=== PATIENT | male | born 1945 | race Caucasian/White ===

== ENCOUNTER 2024-04-12 04:24 | Outpatient (CLI) | payer MEDICARE, BC, SELFPAY ==
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
--- OUTSIDE RECORDS SUMMARY | 2024-04-16 11:43 | XMS_ITS | Clinical Summary ---
[facility] Organization [facility] Address [address] [place] [address] Care Team Providers Care Decontamination Technician Name Role Phone Unassigned, Provider Primary Care Provider Unava ilable Source Comments You are receiving this document as you are listed as the primary care provider,follow-up provider, or the patient has been referred to you for consultation.This is in compliance with the Medicare and[facility] Cent[facility] EHR Incentive Program,which states Providers who transition their patient to another setting of careor provider of care or refers their patient to another provider of care shouldprovide summary care record for each transition of care or referral. Sliced Apples Allergies Active Allergy Reactions Criticality Noted Date [...] age to complete this topic Care Teams Decontamination Technician Relationship Specialty Start Date End Date Unassigned, Provider [address] [place] [address] PCP - General 02/01/01
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
--- OUTSIDE RECORDS SUMMARY | 2024-04-16 11:43 | XMS_ITS | Clinical Summary ---
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 Saw Noel 450 mg Whole Herb, take 1 tablet [...] Encounters Date Type Department Care Team Description 04/15/2024 Nurse Triage [facility] [address] [place] [address] Cornelio Dial MD Musculoskeletal Problem 04/12/2024 10:00 AM CDT Ancillary Procedure [facility] [place] [facility] [address] [place] [address] Arrived 04/12/2024 Office Visit [facility] [address] [facility] [address] [place] [address] Jak Feliz MD Telehealth ([facility]) 04/11/2024 9:00 AM CDT [facility] [address] [facility] [address] Cisco Reddy MD Consult (Left Knee) 04/11/2024 8:45 AM CDT Ancillary Procedure [facility] [address] [place] [address] Arrived 04/11/2024 Travel 04/07/2024 Telephone [facility] [place] [address] [place] [phone] Cisco Reddy MD Appointment (Need x-rays) 02/25/2024 Telephone [facility] [address] [facility] [address] Cornelio Dial MD Referral (colonoscopy ) from Last 3 Months Immunizations Name Administration Dates Next Due AMB Influenza, IIV3 (Age >=3 years)(Flu Clinic Only) 08/31/2009,09/17/2008 AMB Influenza, IIV4 PF (=>6 mos Flulaval,Fluzone Fluarix)(Flu Clinic Only) 09/01/2017 Influenza, IIV3 (Age >=3 years) 08/31/20 09,09/17/2008,09/14/2006,2004,09/22/2003 Pneumococcal Poly,23-Valent (Pneumovax) 07/22/2013,03/01/1995 Pneumococcal conj 13-Valent [...] 08/07/2023 2:09 PM CDT Plan of Treatment Upcoming Encounters Date Type Department Care Team (Late st Contact Info) Description 04/22/2024 11:45 AM CDT [facility] Visit [facility] [address] [facility] [place] [address] Cornelio Dial MD [address] [place] [address] Health Maintenance Due Date Last Done Comments [...] Procedure Name Priority Date/Time Associated Diagnosis Comments ECHO TTE COMPLETE WO CONTRAST Routine 04/12/2024 10:40 AM CDT New onset a-fib (HC) XR KNEE WB 1 VIEW AP BILATERAL AND 3 VIEWS LEFT Routine 04/11/2024 8:37 AM CDT Arthritis of left knee ANTI HCV Routine 07/07/2016 9:19 AM CDT Need for hepatitis C screening test from Last 3 Months or Most Recently Relevant to Health Maintenance Results * ECHO TTE COMPLETE WO CONTRAST (04/12/2024 10:40 AM CDT) AORTIC VALVE MEAN PG 5 mmHg PEAK TR VELOCITY 2.2 m/s LVEDD 4.0 cm EJECTION FRACTION 60 - 65% Anatomical Region Laterality Modality Ultrasound 04/12/2024 10:1 1 AM CDT Narrative 04/12/2024 11:44 AM CDT ECHOCARDIOGRAM MARTA ALBARADO ?Accession#: ?? [id number] : ?1945 79 years Study Date: ?? 04/12/2024 10:11:01 AM Gender: M ? BP: ? 109/83 mmHg Height: 178.00 cm ? BSA: ?1.94 m? ? ? Weight: 76.00 kg ?Tech: ? MCK ?Referring MD: STEVE LEPE Site: ? [facility] Reading Location: [facility] Patient Location: Inpatient. Procedure: 2D, Color Doppler and Spectral Doppler. Indication for study: New onset afib, seizure like activity Cardiac Rhythm: Irregular.Study quality: Fair. Final Impressions: 1. Normal LV size, moderately increased wall thickness, normal global systolic function with an estimated EF of 60 - 65%. 2. Right ventricular cavity size is mildly enlarged, global systolic RV function is normal. 3. The mitral valve is sclerotic, mild mitral regurgitation. 4. Mildly enlarged left atrium. 5. The aortic sinus is normal for age/sex/bsa with a maximal diameter of 4.1 cm. 6. The ascending aorta is normal for age/sex/bsa with a maximal diameter of 4.2 cm. Chamber Sizes and Function Normal left ventricular size, moderately increased wall thickness, normal global systolic function with an estimated EF of 60 - 65%. Left atrial size is mildly enlarged. Right ventricular cavity size is mildly enlarged, global systolic RV function is normal. The right atrium is mildly enlarged. The pulmonary artery is of normal size and origin. The sinus of Valsalva is normal for age/sex/bsa. The ascending aorta is normal for age/sex/bsa. Valves, RV Pressures and Diastolic Function The aortic valve is trileaflet and sclerotic, no stenosis and no regurgitation. The mitral valve is sclerotic, mild mitral regurgitation. Mitral annular calcification is present. Indeterminate pattern of LV diastolic filling. The tricuspid valve is normal in structure. Tricuspid regurgitation is mild regurgitation. The tricuspid regurgitant velocity is 2.2 m/s, the estimated right ventricular systolic pressure is 19 mmHg plus right atrial pressure. The pulmonic valve is normal. Trace pulmonary regurgitation. Masses, Effusion, Shunts There is no pericardial effusion. The inferior vena cava is dilated, respiratory size variation less than 50%. No left to right shunting was detected by limited color flow Doppler interrogation of the interatrial septum. MEASUREMENTS AND CALCULATIONS 2-D Measurements and LV Function: LVID (d) 4.0 cm LV FS% (2D) ?? 35 % LVID (s) 2.6 cm LVOT diameter 2.4 cm IVS (d) ??1.6 cm HR ?114 bpm LVPW (d) 1.4 cm RV Max 4C (d) 4.6 cm Ao Sinus 4.1 cm Asc Ao ?? 4.2 cm LA ? 3.2 cm Aortic Valve: Vmax ? 1.5 m/s ??DESHAWN (V) ?? 2.61 cm? ? ? VTI ?0.27 m ?? DESHAWN (I) ?? 2.58 cm? ? ? LVOT V max 0.8 m/s ??Max PG ?9 mmHg LVOT VTI ?? 0.15 m ?? Mean PG ?? 5 mmHg SV ? 70 ml ?Dim Index 0.56 SV index ?? 36 ml/m? ? ? CO ?8.0 l/min ?CI ?4.1 l/min/m? ? ? Tricuspid Valve and estimated PA pressures: TR Vmax 2.2 m/s TAPSE 2.5 cm TR maxG 19 mmHg . This study was interpreted by an [facility] accredited facility. CC: HIM (med records) [facility], Med/Surg - IP [facility]. ??Final ?? Procedure Note Dillan Austin MD - 04/12/2024 ECHOCARDIOGRAM MARTA ALBARADO : 1945 79 years Study Date: 04/12/2024 10:11:01 AM Gender: M BP: 109/83 mmHg Height: 178.00 cm BSA: 1.94 m? ? ? Weight: 76.00 kg Tech: [facility] Referring MD: STEVE LEPE Site: [facility] Reading Location: [facility] Patient Location: Inpatient. Procedure: 2D, Color Doppler and Spectral Doppler. Indication for study: New onset afib, seizure like activity Cardiac Rhythm: Irregular.Study quality: Fair. Final Impressions: 1. Normal LV size, moderately increased wall thickness, normal globalsystolic function with an estimated EF of 60 - 65%. 2. Right ventricular cavity size is mildly enlarged, global systolic RVfunction is normal. 3. The mitral valve is sclerotic, mild mitral regurgitation. 4. Mildly enlarged left atrium. 5. The aortic sinus is normal for age/sex/bsa with a maximal diameter of4.1 cm. 6. The ascending aorta is normal for age/sex/bsa with a maximal diameterof 4.2 cm. Chamber Sizes and Function Normal left ventricular size, moderately increased wall thickness, normalglobal systolic function with an estimated EF of 60 - 65%. Left atrialsize is mildly enlarged. Right ventricular cavity size is mildly enlarged,global systolic RV function is normal. The right atrium is mildlyenlarged. The pulmonary artery is of normal size and origin. The sinus ofValsalva is normal for age/sex/bsa. The ascending aorta is normal forage/sex/bsa. Valves, RV Pressures and Diastolic Function The aortic valve is trileaflet and sclerotic, no stenosis and noregurgitation. The mitral valve is sclerotic, mild mitral regurgitation.Mitral annular calcification is present. Indeterminate pattern of LVdiastolic filling. The tricuspid valve is normal in structure. Tricuspidregurgitation is mild regurgitation. The tricuspid regurgitant velocity is2.2 m/s, the estimated right ventricular systolic pressure is 19 mmHg plusright atrial pressure. The pulmonic valve is normal. Trace pulmonaryregurgitation. Masses, Effusion, Shunts There is no pericardial effusion. The inferior vena cava is dilated,respiratory size variation less than 50%. No left to right shunting wasdetected by limited color flow Doppler interrogation of the interatrialseptum. MEASUREMENTS AND CALCULATIONS 2-D Measurements and LV Function: LVID (d) 4.0 cm LV FS% (2D) 35 % LVID (s) 2.6 cm LVOT diameter 2.4 cm IVS (d) 1.6 cm HR 114 bpm LVPW (d) 1.4 cm RV Max 4C (d) 4.6 cm Ao Sinus 4.1 cm Asc Ao 4.2 cm LA 3.2 cm Aortic Valve: Vmax 1.5 m/s DESHAWN (V) 2.61 cm? ? ? VTI 0.27 m DESHAWN (I) 2.58 cm? ? ? LVOT V max 0.8 m/s Max PG 9 mmHg LVOT VTI 0.15 m Mean PG 5 mmHg SV 70 ml Dim Index 0.56 SV index 36 ml/m? ? ? CO 8.0 l/min CI 4.1 l/min/m? ? ? Tricuspid Valve and estimated PA pressures: TR Vmax 2.2 m/s TAPSE 2.5 cm TR maxG 19 mmHg . This study was interpreted by an [facility] accredited facility. CC: JACIEL (med records) [facility], Med/Surg - IP [facility]. Final Steve Lepe PA ECHO ORD * XR KNEE WB 1 VIEW AP [...] For Patients: ??As a result of the Cures Act, medical imaging exams and procedure reports are released immediately into your electronic medical record. ??You may view this report before your referring provider. ??If you have questions, please contact your health care provider. Indication: Arthritis left knee Technique: WB AP BILATERAL, LEFT VELASQUEZ, SUNRISE, LATERAL Comparison: 07/09/2019 Procedure Note Dillan Rader MD - 04/11/2024 For Patients: As a result of the Cures Act, medical imagingexams and procedure reports [...] Reddy MD GENERAL IMAGING * ANTI HCV [81144.2] (07/07/2016 9:19 AM CDT) HEPATITIS C ANTIBODY Non-Reacti ve Non-Reacti ve 07/07/2016 2:21 PM CDT [facility] Blood BLOOD SPECIMEN / Unknown Venipuncture / Unknown 07/07/2016 9:19 AM CDT 07/07/2016 9:19 AM CDT Narrative [facility] - 07/07/2016 2:21 PM CDT Antibodies to HCV not detected; does not exclude the possibility of exposure to HCV. Cornelio Dial MD SEND OUTS [facility] [address] [place] [address], from Last 3 Months or Most Recently Relevant to Health Maintenance Advance Directives Documents on File Type Date Recorded Patient [employer] Principal Expl anation Healthcare Directive 09/13/2020 020 Care Teams Crankshaft Straightener Relationship Specialty Start Date End Date Cornelio Dial MD [address] [place] [address] PCP - General Family Practice 06/14/16
== END 2024-04-12 04:25 | disposition home or self-care (01) ==
LOC: AMB 04-16 11:41
PROVIDERS: PCP Surgery; Visit Provider Internal Medicine
DX: R56.9 Unspecified convulsions (principal)
CPT/HCPCS: A0425; A0427

== ENCOUNTER 2024-04-12 04:54 | Inpatient (IN) | payer MEDICARE, BC, SELFPAY ==
[2024-04-12] VITALS (113 sets, daily range): BP systolic 79–123; BP diastolic 50–99; PULSE 73–134; RESP 16–20; TEMP 36.4–37.2; O2SAT 87–99; BMI 24.4; BMI 24.2
--- NOTE | 2024-04-12 | XR_ITS ---
Patient: MARTA CINTRON Facility:?[facility] RIS Patient ID:?[id number] Site Patient ID:?[id number] Site :?1945 Study:?XRay-Orbits FOREIGN BODY CHECK-04/12/2024 10:58:53 AM Ordering Physician:CONNIE Final Report: INDICATION: Pre MRI check for metal. Technique: Single radiograph orbits FINDINGS: No radiopaque foreign bodies. Dictated by Andrea Bravo MD @ 04/12/2024 11:26:26 AM Signed by:?Andrea Bravo MD @04/12/2024 11:26:26 AM (Electronic Signature)
--- NOTE | 2024-04-12 05:06 | ED_ITS ---
HPI - General Adult General Time Seen by Provider: 05:01 Date Seen: 04/12/24 Chief complaint: Arrhythmia/Palpitations Stated complaint: Seizure Time Seen by Provider: 04/12/24 05:00 Source: patient, EMS, RN notes reviewed and old records reviewed Mode of arrival: EMS Limitations: altered mental status History of Present Illness HPI narrative: 79-year-old male who presents today by EMS for altered mental status. Per EMS report, spouse woke up to the patient next to her ?shaking?. On initial EMS arrival patient with decreased responsiveness and see confused, in route to the emergency department patient became more alert but still confused. Patient has no complaint here, denies chest pain, palpitations, shortness of breath, headache, but does note some nausea. Related Data Home Medications Medication Instructions Recorded Confirmed omeprazole magnesium 20 mg 20 mg PO DAILY 04/12/24 04/12/24 tablet,delayed release (Prilosec OTC) tamsulosin 0.4 mg capsule 0.4 mg PO DAILY 04/12/24 04/12/24 Allergies Allergy/AdvReac Type Severity Reaction Status Date / Time erythromycin base Allergy laryngospas Verified 04/12/24 06:13 m [facility] Medical History (Updated 04/12/24 @ 05:19 by David Landis MD) Thrombocytopenia ?D69.6 - Thrombocytopenia, unspecified (ICD-10) Splenic artery aneurysm ?I72.8 - Aneurysm of other specified arteries (ICD-10) Primary osteoarthritis of both knees ?M17.0 - Bilateral primary osteoarthritis of knee (ICD-10) Adenomatous colon polyp ?D12.6 - Benign neoplasm of colon, unspecified (ICD-10) Bronchiectasis ?J47.9 - Bronchiectasis, uncomplicated (ICD-10) Unspecified asthma ?J45.909 - Unspecified asthma, uncomplicated (ICD-10) Esophageal reflux ?K21.9 - Gastro-esophageal reflux disease without esophagitis (ICD-10) Elevated prostate specific antigen (PSA) ?R97.20 - Elevated prostate specific antigen [PSA] (ICD-10) Surgical History (Updated 04/12/24 @ 05:14 by Ulices Castaneda RN) History of repair of right rotator cuff ?Z98.890 - Other specified postprocedural states (ICD-10) History of tonsillectomy and adenoidectomy ?Z90.89 - Acquired absence of other organs (ICD-10) History of hernia repair ?Z98.890 - Other specified postprocedural states (ICD-10) ?Z87.19 - Personal history of other diseases of the digestive system (ICD-10) History of colonoscopy ?Z98.890 - Other specified postprocedural states (ICD-10) Social History Smoking Status: Never smoker Second hand tobacco smoke exposure: No How often do you have a drink containing alcohol: never How often do you have six or more drinks on one occasion: Never AUDIT-C Alcohol total score: 0 Non-prescribed substance use: denies use Exam Narrative: Exam Narrative: General: Well-developed and well-nourished, no acute distress Head: Atraumatic and normocephalic Eyes: Pupils are equal reactive, extraocular motions intact, conjunctiva clear ENT: External nose and ears are normal, posterior pharynx without erythema or exudate Neck: No midline cervical tenderness, full spontaneous range of motion the neck, trachea midline, no adenopathy Heart: Regular rate and rhythm no murmurs or thrills Lungs: Clear to auscultation bilaterally without wheezes or crackles Abdomen: Soft, nontender, nondistended with active bowel sounds Musculoskeletal: No tenderness, deformity, or edema Neurologic: Awake, alert, and oriented x3, no gross focal neurologic deficits, cranial nerves intact as tested. Repetitive questioning. Psych: Mood and affect are appropriate Skin: No rashes Const: Vital Signs, click to edit/add: Vital Signs - 24 hr 04/12/24 05:01 04/12/24 05:03 04/12/24 05:16 Temperature 98.2 F Pulse Rate 110 H 113 H Pulse Rate [Pulse Oximeter] 134 H Respiratory Rate 16 20 Blood Pressure 102/67 112/99 H Blood Pressure [Ri ght Upper Arm] 91/78 Pulse Oximetry 94 93 93 Oxygen Delivery Me thod Room Air OxyMask Oxygen Flow Rate 2 04/12/24 05:30 04/12/24 05:30 04/12/24 05:32 Temperature Pulse Rate 119 H 112 H Pulse Rate [Pulse Oximeter] Respiratory Rate Blood Pressure 116/81 Blood Pressure [Ri ght Upper Arm] Pulse Oximetry 89 90 89 Oxygen Delivery Me thod OxyMask OxyMask Oxygen Flow Rate 2 2 04/12/24 05:46 04/12/24 05:46 Temperature Pulse Rate 105 H Pulse Rate [Pulse Oximeter] Respiratory Rate 20 Blood Pressure 102/68 Blood Pressure [Ri ght Upper Arm] Pulse Oximetry 95 94 Oxygen Delivery Me thod OxyMask Oxygen Flow Rate 2 Course Course ED Course: Patient seen examined, prior records reviewed. Patient presents today with con cern mentation and abnormal shaking movements from home. On initial exam here, patient is pleasant, still little bit confused. He is found to be in atrial fibrillation with rapid ventricular response, otherwise no acute findings. Broad differential including seizure, stroke, infection, electrolyte disturbance, alcohol withdrawal. On exam here, patient has no focal neurologic deficits. Labs are ordered along with CT scan of the head. D-dimer ordered, consider CT PE study for new atrial fibrillation although patient has no pleuritic chest pain or shortness of breath. Patient does not take any medications. Will be given Cardizem for his AFib with RVR, plan for admission. Reevaluation(s) Time of Reevaluation #1: 05:19 Reevaluation #1: Spouse no at bedside, says she woke up to patient shaking and describes shaking movements of both arms. Says this lasted about for 5 minutes, and after that patient was unresponsive although awake. No episodes of cyanosis and no vomiting. Confirms that patient has no past medical history. Time of Reevaluation #2: 05:36 Reevaluation #2: CT scan of the head independently interpreted by me negative for acute findings. CBC is normal, initial troponin is negative, lactate elevated at 5.4 which could represent sepsis but in this patient more likely represents demand from seizure. On arrival back from CT patient oxygen levels 84% on room air, placed on oxygen. CTA of the chest ordered for possible pulmonary embolism Time of Reevaluation #3: 05:49 Reevaluation #3: Heart rate improved after Cardizem. Basic panel reassuring other than elevated glucose at 207, patient has no prior history of diabetes. Ammonia level negative, hepatic panel normal, BNP normal. Additional Reevaluation(s): 6:17 a.m. labs independently interpreted by me D-dimer 1.5, CT PE study is already been done. Hemoglobin A1c is 6.1, although patient is hyperglycemic it appears this may not represent diabetes. Plan for admission pending CT results. 6:39 a.m. updated patient, mentating more appropriately and almost back to baseline per . Care discussed with Dr. Feliz, neurology who recommends MRI and EEG, recommends against anti seizure medications at this point. 7;17 a.m. patient accepted for admission by Gavi Dela Cruz, hospitalist, we agreed on starting Cardizem infusion. Rechecked with Dr. Feliz, patient does not need inpatient EEG and can stay in [place]. Does recommend MRI and this is been ordered. Vital Signs Vital signs: Initial Vital Signs Temperature 98.2 F 04/12/24 05:01 Temperature Source Temporal Artery Scan 04/12/24 05:01 Pulse Rate 134 H 04/12/24 05:01 Pulse Rhythm Irregular 04/12/24 05:01 Respiratory Rate 16 04/12/24 05:01 Respiratory Effort Normal, Spontaneous, Non-Labored 04/12/24 05:01 Respiratory Depth Normal 04/12/24 05:01 Respiratory Pattern Normal 04/12/24 05:01 Blood Pressure 91/78 04/12/24 05:01 Blood Pressure Mean 82 04/12/24 05:01 Blood Pressure Position Sitting 04/12/24 05:01 Pulse Oximetry 94 04/12/24 05:01 Oxygen Delivery Method Room Air 04/12/24 05:01 Vital Signs Temperature 98.2 F 04/12/24 05:01 Pulse Rate 134 H 04/12/24 05:01 Respiratory Rate 16 04/12/24 05:01 Blood Pressure 91/78 04/12/24 05:01 Pulse Oximetry 94 04/12/24 05:01 Oxygen Delivery Method Room Air 04/12/24 05:01 Temperature 98.2 F 04/12/24 05:01 Pulse Rate 105 H 04/12/24 05:46 Respiratory Rate 20 04/12/24 05:46 Blood Pressure 102/68 04/12/24 05:46 Pulse Oximetry 94 04/12/24 05:46 Oxygen Delivery Method OxyMask 04/12/24 05:46 Oxygen Flow Rate 2 04/12/24 05:46 Medications Administered Medications: Generic Name Dose Route Start Last Admin Trade Name Freq PRN Reason Stop Dose Admin Diltiazem HCl 10 mg 04/12/24 05:11 04/12/24 05:32 Diltiazem 5 Mg/Ml Inj IVP 04/12/24 05:12 10 mg ONCE ONE Administration Sodium Chloride 1,000 mls @ 1,000 mls/hr 04/12/24 07:00 04/12/24 06:51 0.9 % Sodium Chloride 1000 Ml IV 04/12/24 07:59 Infused .Q1H TAURUS Infusion Ondansetron HCl 4 mg 04/12/24 05:17 04/12/24 05:22 Ondansetron 2 Mg/Ml Inj IVP 04/12/24 05:18 4 mg ONCE ONE Administration Ondansetron HCl 4 mg 04/12/24 07:01 04/12/24 07:05 Ondansetron 2 Mg/Ml Inj IVP 04/12/24 07:02 4 mg ONCE ONE Administration Medical Decision Making Lab Data Labs: Lab Results 04/12/24 04/12/24 04/12/24 Range/Units 05:05 05:15 05:57 WBC 9.83 (4.50-11.00) K/uL RBC 4.39 (4.30-5.90) m/uL Hgb 13.6 (13.5-17.5) gm/dL Hct 40.9 (37.0-53.0) % MCV 93 (80-100) fL MCH 31 (26-34) pg MCHC 33 (32-36) gm/dL RDW Coeff of Joshua 12.3 (11.5-15.5) % Plt Count 146 (140-440) K/uL Neut % (Auto) 85.5 H (42.0-72.0) % Lymph % (Auto) 9.6 L (20-44) % Collin % (Auto) 4.5 (0.0-11.0) % Eos % (Auto) 0.0 (0.0-7.0) % Baso % (Auto) 0.0 (0.0-3.0) % Neut # (Auto) 8.40 H (1.7-7.0) K/uL Lymph # (Auto) 0.90 (0.90-2.90) K/uL Collin # (Auto) 0.40 (0.00-0.90) K/UL Eos # (Auto) 0.00 (0.00-0.50) K/uL Baso # (Auto) 0.00 (0.00-0.30) K/uL Abs Immat Gran (auto) 0.04 (0.00-0.30) K/uL Imm/Tot Granulo (auto) 0.4 % D-Dimer Quant (PE/DVT) 1.50 H (0.00-0.50) ug/ml VBG pH 7.365 (7.32-7.43) VBG pCO2 37 L (40-50) mmHG VBG pO2 32.4 (25-47) mmHG VBG HCO3 21 (21-28) mmol/L Sodium 137 (135-149) mmol/L Potassium 4.4 (3.6-5.1) mmol/L Chloride 105 (96-114) mmol/L Carbon Dioxide 21 (20-32) mmol/L Anion Gap 11 (7-15) mEq/L BUN 20 (7-30) mg/dL Creatinine 0.9 (0.5-1.5) mg/dL Estimated Creat Clear 63.80 Estimated GFR 87 ml/min Glucose 207 H (60-115) mg/dL Hemoglobin A1c 6.1 H (0-5.6) % Lactate 5.4 H* (0.5-1.9) mmol/L Calcium 9.1 (8.4-10.6) mg/dL Magnesium 2.1 (1.5-2.6) mg/dL Total Bilirubin 0.7 (0.1-1.5) mg/dL Direct Bilirubin 0.0 (0.0-0.5) mg/dL AST 20 (12-35) U/L ALT 21 (4-50) U/L Alkaline Phosphatase 88 (40-150) U/L Ammonia < 9.0 L (13.1-30.0) umol/L NT-Pro-B Natriuret Pep 205 pg/mL Total Protein 6.7 (6.0-8.3) g/dL Albumin 4.1 (3.3-5.0) g/dL Urine Color (Yellow) Urine Appearance (Clear) Urine pH (5.0-8.5) Ur Specific Alice (1.000-1.030) Urine Protein (Negative) Urine Glucose (UA) (Negative) Urine Ketones (Negative) Urine Blood (Negative) Urine Nitrite (Negative) Urine Bilirubin (Negative) Urine Urobilinogen (0.2-1.0) Ur Leukocyte Esterase (Negative) Urine RBC (0-2) Urine WBC (0-5) Ur Squamous Epith Cells (None-Few) Urine Bacteria (None) Urine Mucus (None) Urine Opiates Screen (Negative) Ur Oxycodone Screen (Negative) Urine Methadone Screen (Negative) Ur Barbiturates Screen (Negative) U Tricyclic Antidepress (Negative) Ur Phencyclidine Scrn (Negative) Ur Amphetamines Screen (Negative) U Methamphetamines Scrn (Negative) U Benzodiazepines Scrn (Negative) Urine Cocaine Screen (Negative) U Marijuana (THC) Screen (Negative) Ur Drug Screen Comment Ethyl Alcohol < 0.01 L (0.01-0.03) % Lab Acknowledgement Test Added POC Creatinine 1.0 (0.6-1.3) mg/dl POC Troponin I 0.00 L (0.01-0.04) ng/ml 04/12/24 Range/Units 06:47 WBC (4.50-11.00) K/uL RBC (4.30-5.90) m/uL Hgb (13.5-17.5) gm/dL Hct (37.0-53.0) % MCV (80-100) fL MCH (26-34) pg MCHC (32-36) gm/dL RDW Coeff of Joshua (11.5-15.5) % Plt Count (140-440) K/uL Neut % (Auto) (42.0-72.0) % Lymph % (Auto) (20-44) % Collin % (Auto) (0.0-11.0) % Eos % (Auto) (0.0-7.0) % Baso % (Auto) (0.0-3.0) % Neut # (Auto) (1.7-7.0) K/uL Lymph # (Auto) (0.90-2.90) K/uL Collin # (Auto) (0.00-0.90) K/UL Eos # (Auto) (0.00-0.50) K/uL Baso # (Auto) (0.00-0.30) K/uL Abs Immat Gran (auto) (0.00-0.30) K/uL Imm/Tot Granulo (auto) % D-Dimer Quant (PE/DVT) (0.00-0.50) ug/ml VBG pH (7.32-7.43) VBG pCO2 (40-50) mmHG VBG pO2 (25-47) mmHG VBG HCO3 (21-28) mmol/L Sodium (135-149) mmol/L Potassium (3.6-5.1) mmol/L Chloride (96-114) mmol/L Carbon Dioxide (20-32) mmol/L Anion Gap (7-15) mEq/L BUN (7-30) mg/dL Creatinine (0.5-1.5) mg/dL Estimated Creat Clear Estimated GFR ml/min Glucose (60-115) mg/dL Hemoglobin A1c (0-5.6) % Lactate (0.5-1.9) mmol/L Calcium (8.4-10.6) mg/dL Magnesium (1.5-2.6) mg/dL Total Bilirubin (0.1-1.5) mg/dL Direct Bilirubin (0.0-0.5) mg/dL AST (12-35) U/L ALT (4-50) U/L Alkaline Phosphatase (40-150) U/L Ammonia (13.1-30.0) umol/L NT-Pro-B Natriuret Pep pg/mL Total Protein (6.0-8.3) g/dL Albumin (3.3-5.0) g/dL Urine Color Yellow (Yellow) Urine Appearance Clear (Clear) Urine pH 6.5 (5.0-8.5) Ur Specific Alice 1.020 (1.000-1.030) Urine Protein 2+ A (Negative) Urine Glucose (UA) Negative (Negative) Urine Ketones Negative (Negative) Urine Blood Negative (Negative) Urine Nitrite Negative (Negative) Urine Bilirubin Negative (Negative) Urine Urobilinogen 0.2 (0.2-1.0) Ur Leukocyte Esterase Negative (Negative) Urine RBC 0-2 (0-2) Urine WBC 0-2 (0-5) Ur Squamous Epith Cells Few (None-Few) Urine Bacteria Few A (None) Urine Mucus Few A (None) Urine Opiates Screen Negative (Negative) Ur Oxycodone Screen Negative (Negative) Urine Methadone Screen Negative (Negative) Ur Barbiturates Screen Negative (Negative) U Tricyclic Antidepress Negative (Negative) Ur Phencyclidine Scrn Negative (Negative) Ur Amphetamines Screen Negative (Negative) U Methamphetamines Scrn Negative (Negative) U Benzodiazepines Scrn Negative (Negative) Urine Cocaine Screen Negative (Negative) U Marijuana (THC) Screen Negative (Negative) Ur Drug Screen Comment See Note Ethyl Alcohol (0.01-0.03) % Lab Acknowledgement POC Creatinine (0.6-1.3) mg/dl POC Troponin I (0.01-0.04) ng/ml Discharge Plan Discharge Clinical Impression: Seizure, Atrial fibrillation with rapid ventricular response Patient Disposition: Admitted As Inpatient
--- NOTE | 2024-04-12 05:11 | CT_ITS ---
Patient: MARTA CINTRON Facility:?[facility] R[facility] Patient ID:?[id number] Site Patient ID:?[id number] Site :?1945 Study:?CT-Head W/O-04/12/2024 5:45:38 AM Ordering Physician:CALI Final Report: INDICATION: Altered mental status. TECHNIQUE: CT head without contrast. COMPARISON: None. FINDINGS: CSF spaces: Within normal limits for age. Brain parenchyma and extra-axial spaces: The iverson-white differentiation is normal. No sign of mass, hemorrhage, or midline shift. No extra-axial fluid collection. Skull base and calvarium: The visualized paranasal sinuses and mastoid air cells demonstrate no acute or significant findings. The visualized orbits are grossly unremarkable. No skull fractures. IMPRESSION: Unremarkable noncontrast head CT. Please note that all CT scans at this facility use dose modulation, iterative reconstruction, and/or weight-based dosing when appropriate to reduce radiation dose to as low as reasonably achievable. Dictated by Jorge Yanes MD @ 04/12/2024 6:27:42 AM Signed by:?Jorge Yanes MD @04/12/2024 6:27:42 AM (Electronic Signature)
[2024-04-12] MEDS: ONDANSETRON 2 MG/ML inj 4 MG IVP ×3 (05:22→10:01)
[2024-04-12 05:23] LABS: Hematocrit 40.9 % (37.0-53.0); Hemoglobin* 13.6 gm/dL (13.5-17.5); Immature Granulocytes Abs Auto 0.04 K/uL (0.00-0.30); Immature Granulocytes Pct Auto 0.4 %; Lactate* 5.4 mmol/L (0.5-1.9); Lymphocytes Percent Auto 9.6 % (20-44); Mean Corpuscular HGB Conc 33 gm/dL (32-36); Mean Corpuscular Hemoglobin 31 pg (26-34); Mean Corpuscular Volume 93 fL (80-100); Monocytes Percent Auto 4.5 % (0.0-11.0); Neutrophils Percent Auto 85.5 % (42.0-72.0); Platelet Count* 146 K/uL (140-440); RDW Coefficient of Variation % 12.3 % (11.5-15.5); Red Blood Count 4.39 m/uL (4.30-5.90); White Blood Count* 9.83 K/uL (4.50-11.00)
[2024-04-12 05:27] LABS: Slide Review Reflex No
[2024-04-12] MEDS: dilTIAZem 5 MG/ML inj 10 MG IVP (05:32)
[2024-04-12 05:37] LABS: Albumin* 4.1 g/dL (3.3-5.0)
--- NOTE | 2024-04-12 05:37 | CT_ITS ---
Patient: MARTA CINTRON Facility:?[facility] R[facility] Patient ID:?[id number] Site Patient ID:?[id number] Site :?1945 Study:?CT-Chest ANGIO PE W/95CC [id number]/18/2024 6:12:08 AM Ordering Physician:CALI Final Report: INDICATION: New AFib. TECHNIQUE: CT chest PE was acquired with 95 mL Isovue 370 IV contrast. COMPARISON: None. FINDINGS: Heart and vasculature: Contrast opacification of the pulmonary arterial tree is adequate. No sign of pulmonary embolism. Heart size is normal. Lungs and pleural: Calcified granuloma in the right upper lobe. Atelectasis in mild bronchiectasis in the lung bases. 7 mm nodule along the left fissure image 105 series 5. Lymph nodes/mediastinum: No mediastinal, hilar, or axillary adenopathy. Large hiatal hernia containing the entire stomach. Chest wall: No masses. Upper abdomen: Pancreatic calcifications suggesting chronic pancreatitis. 1.5 cm splenic artery aneurysm. Bones: Unremarkable for age. IMPRESSION: 1. No acute findings. No pulmonary emboli. 2. Large hiatal hernia containing the entire stomach. 3. Atelectasis and bronchiectasis in the lung bases. Please note that all CT scans at this facility use dose modulation, iterative reconstruction, and/or weight-based dosing when appropriate to reduce radiation dose to as low as reasonably achievable. Dictated by Cesar Richey MD @ 04/12/2024 7:11:26 AM Signed by:?Cesar Richey MD @04/12/2024 7:11:26 AM (Electronic Signature)
[2024-04-12 05:38] LABS: Chloride* 105 mmol/L (96-114); Potassium* 4.4 mmol/L (3.6-5.1); Sodium* 137 mmol/L (135-149)
[2024-04-12 05:40] LABS: Ammonia* < 9.0 umol/L (13.1-30.0); Anion Gap 11 mEq/L (7-15); Aspartate Amino Transferase* 20 U/L (12-35); Bilirubin Total* 0.7 mg/dL (0.1-1.5); Carbon Dioxide* 21 mmol/L (20-32); Creatinine* 0.9 mg/dL (0.5-1.5); Estimated Glomerular Filt Rate 87 ml/min; Total Protein* 6.7 g/dL (6.0-8.3)
[2024-04-12 05:41] LABS: Alanine Aminotransferase* 21 U/L (4-50); Alkaline Phosphatase* 88 U/L (40-150); Blood Urea Nitrogen* 20 mg/dL (7-30); Calcium* 9.1 mg/dL (8.4-10.6); Glucose* 207 mg/dL (60-115); Magnesium* 2.1 mg/dL (1.5-2.6)
--- NOTE | 2024-04-12 05:42 | CT_ITS ---
Patient: MARTA CINTRON Facility:?[facility] R[facility] Patient ID:?[id number] Site Patient ID:?[id number] Site :?1945 Study:?CT-Abdomen/Pelvis W/95CC [id number]/18/2024 6:12:36 AM Ordering Physician:CALI Final Report: INDICATION: History of splenic artery aneurysm TECHNIQUE: CT abdomen and pelvis acquired with 95 mL Isovue 370 IV contrast. COMPARISON: None. FINDINGS: Lower chest: Hiatal hernia containing the entire stomach. Atelectasis and bronchiectasis as seen on today`s chest CT. Liver: Unremarkable. Normal in size and attenuation. No masses. Gallbladder and bile ducts: Unremarkable. No stones or inflammation. No biliary dilatation. Pancreas: Parenchymal calcifications compatible with chronic pancreatitis. Spleen: Unremarkable. Normal in size. No masses. Adrenal glands: Unremarkable. No nodules. Kidneys: Incidental cyst inferior left kidney. Otherwise unremarkable. GI tract: Unremarkable. Normal in caliber. No sign of mass or inflammation. Vasculature: Peripherally calcified splenic artery aneurysm measuring 16 mm in diameter and 27 mm in length. Lymph nodes: No lymphadenopathy. Omentum/Peritoneum/Abdominal Wall: Unremarkable. No sign of mass or infiltration. No free air or significant free fluid. Pelvis: Enlarged prostate. Bones: Unremarkable for age. IMPRESSION: 1. No acute findings. 2. 16 mm peripherally calcified splenic artery aneurysm. 3. Pancreatic calcifications compatible with chronic pancreatitis. 4. Large hiatal hernia containing the entire stomach. Please note that all CT scans at this facility use dose modulation, iterative reconstruction, and/or weight-based dosing when appropriate to reduce radiation dose to as low as reasonably achievable. Dictated by Cesar Richey MD @ 04/12/2024 7:20:11 AM Signed by:?Cesar Richey MD @04/12/2024 7:20:11 AM (Electronic Signature)
[2024-04-12 05:43] LABS: Ethanol* < 0.01 % (0.01-0.03)
--- OUTSIDE RECORDS SUMMARY | 2024-04-12 05:44 | XMS_ITS | Clinical Summary ---
[facility] [address] [place] [id number] Care Team Providers Care Construction Inspector Name Role Phone Unassigned, Provider Primary Care Provider Unava ilable Source Comments You are receiving this document as you are listed as the primary care provider,follow-up provider, or the patient has been referred to you for consultation.This is in compliance with the Medicare and[facility] EHR Incentive Program,which states Providers who transition their patient to another setting of careor provider of care or refers their patient to another provider of care shouldprovide summary care record for each transition of care or referral. [facility] Allergies Active Allergy Reactions Criticality Noted Date Comments Erythromycin Breathing Difficulty High 04/03/2018 Other 04/03/2018 Pt reports allergy to cats and roses Medications Medication Sig Dispensed Refills Start Date End Date Status omeprazole (PRILOSEC) 40 MG capsule Take 40 mg by mouth daily. Take 1 hour before a meal. Active ibuprofen (MOTRIN) 200 MG tablet Take 200-400 mg by mouth every 4 hours as needed for Pain. Active Active Problems No known active problems Social History Tobacco Use Types Packs/Day Years Used Date Smoking Tobacco: Never Smokeless Tobacco: Never Sex and Gender Information Value Date Recorded Sex Assigned at Not on file Gender Identity Not on file Sexual Orientation Not on file Plan of Treatment Health Maintenance Due Date Last Done Comments Hep C Screening (Preventive Services) 1945 Medicare Annual Wellness Visit 1945 Zoster/Shingles (2 of 3) 01/21/2013 11/26/2012 COVID-19 Vaccine ( season) 2023 Influenza (Season Ended) 2024 017, 08/31/2009, 09/17/2008, Additional history exists DTaP/Tdap/Td (3 - Tdap) 06/14/2026 06/14/2016, 04/10 Pneumococcal 65+ Yrs Completed 07/07/2016, 07/22/20 13 HepA Aged Out No longer eligi ble based on patient's age to complete this topic HepB Aged Out No longer eligi ble based on patient's age to complete this topic Hib Aged Out No longer eligi ble based on patient's age to complete this topic IPV (Polio) Aged Out No longer eligi ble based on patient's age to complete this topic MCV4 Aged Out No longer eligi ble based on patient's age to complete this topic Care Teams Construction Inspector Relationship Specialty Start Date End Date Unassigned, Provider [address] [place] [address] PCP - General 02/01/01
--- OUTSIDE RECORDS SUMMARY | 2024-04-12 05:44 | XMS_ITS | Clinical Summary ---
Author Name Unknown Organization [facility] Address [place], [place] [address] Care Team Providers Care Audio Visual Coordinator Name Role Phone Cornelio Dial MD Primary Care Provider [phone] Allergies Active Allergy Reactions Criticality Noted Date Comments Cats (Fur, Dander, Saliva) Other - Describe In Comment Field 06/12/2018 Chest tighrness Erythromycin Laryngospasm 03/04/2007 chest tightness Erin Hips Other - Describe In Comment Field 06/12/2018 Chest tightness Medications Medication Sig Dispensed Refills Start Date End Date Status PRILOSEC 20 MG CAPIndications:Esoph ageal reflux take 1 capsule (20 mg) by oral route once daily before a meal 0 03/30/2008 Active ascorbic acid, vitamin C, (VITAMIN C) 1,000 mg tablet Take 1 tablet by mouth once daily. 0 05/20/2018 Active vitamin e 1,000 unit cap Take by mouth once daily. 0 05/20/2018 Active medication order composer Take by mouth. Saw [place] 450 mg Whole Herb, take 1 tablet by mouth daily 0 05/20/2018 Active cholecalciferol (VITAMIN D-3) 2,000 unit capsule Take 1 capsule by mouth once daily. 0 06/07/2020 Active tamsulosin (FLOMAX) 0.4 mg capsuleIndications:B PH without urinary obstruction Take 1 Capsule (0.4 mg) by mouth once daily after a meal. 90 Capsule 3 08/07/2023 Active Hospital, Clinic, or Other Facility Administered Medication Ordered Dose Route Frequency Start Date End Date Status triamcinolone acetonide (KENALOG) injection 40 mgIndications:Arthritis of left knee 40 mg IArtic ONE TIME 04/11/2024 04/11/2024 Ended Active Problems Problem Noted Date Diagnosed Date Arthritis of left knee 04/11/2024 Family history of colonic polyps 02/26/2024 Overview: Colonoscopy 07/2021 normal, FHx colon polyps, repeat in 5 years Primary osteoarthritis of right knee 07/09/2019 Thrombocytopenia 06/04/2019 Overview: Mild - 130-150 - borderline since at least 2010 - has been stable Splenic artery aneurysm 07/12/2018 Overview: Followed by Vascular - repeat CTA recommended in 2023 Primary osteoarthritis of both knees 05/08/2017 Adenomatous colon polyp 08/11/2016 Overview: Colonoscopy 07/2016 polyp repeat in 5 years Colonoscopy 07/2021 normal, FHx colon polyps, repeat in 5 years Bronchiectasis 05/17/2009 Elevated prostate specific antigen (PSA) 007 Overview: Since at least 2007. Stable. Follows with Urology. Esophageal reflux 03/04/2007 Overview: Upper endoscopy mild gastritis 2005. Unspecified asthma(493.90) 03/04/2007 Resolved Problems Problem Noted Date Diagnosed Date Resolved Date Benign neoplasm of colon 03/04/2007 Incidental pulmonary nodule, > 3mm and < 8mm 07/22/2013 Overview: due for repeat 05/05 Encounters Date Type Department Care Team Description 04/11/2024 9:00 AM CDT Office [facility] [address] [facility] [address] Cisco Reddy MD Consult (Left Knee) 04/11/2024 8:45 AM CDT Ancillary Procedure [facility] [address] [facility] [address] Arrived 04/11/2024 Travel 04/07/2024 Telephone [facility] [place] [address] [place] [address] Cisco Reddy MD Appointment (Need x-rays) 02/25/2024 Telephone [facility] [address] [place] [address] Cornelio Dial MD Referral (colonoscopy ) from Last 3 Months Immunizations Name Administration Dates Next Due AMB Influenza, IIV3 (Age >=3 years)(Flu Clinic Only) 08/31/2009,09/17/2008 AMB Influenza, IIV4 PF (=>6 mos Flulaval,Fluzone Fluarix)(Flu Clinic Only) 09/01/2017 Influenza, IIV3 (Age >=3 years) 08/31/20,09/17/2008,09/14/2006,2004,09/22/2003 Pneumococcal Poly,23-Valent (Pneumovax) 07/22/2013,03/01/1995 Pneumococcal conj 13-Valent (Prevnar 13) 07/07/2016 Td (Age >=7 Years) 03/02/1997 Td, Preservative Free (age > = 7 Years) 06/14/2016 Tdap 04/10/2008 Zoster (Shingrix-RZV, recombinant) 11/22/2020, Zoster (Zostavax-ZVL, live) 11/26/2012 Family History Medical History Relation Name Comments Asthma Brother Cancer-colon Brother Cancer-colon Father Cancer-prostate Father Diabetes Father Heart Disease Father Other Father Renal failure - dialysis for 11 years Heart Disease Mother at 93 Other Sister 2 Marfans - at 40 Relation Name Status Comments Brother Father (Age 83) CAD, dialy sis for 11 years Mother (Age 92) stoke Sister 1 (Age 40) marfans Sister 2 Social History Tobacco Use Types Packs/Day Years Used Date Smoking Tobacco: Never Smokeless Tobacco: Never Tobacco Cessation:Counseling Given: Yes Alcohol Use Standard Drinks/Week Comments Yes 0 (1 standard drink = 0.6 oz pure alcohol) about 6 drinks per year, noted 05/16/2021 PHQ-2 Answer Date Recorded PHQ-2 TOTAL SCORE 0 08/07/2023 Social Connections Answer Date Recorded Frequency of Communication with Friends and Fami ly Not on file 07/09/2023 Alcohol Use Answer Date Recorded How often do you have a drink containing alcohol ? 1 04/03/2022 How many drinks containing a lcohol do you have on a typical day when you are drinking? 0 04/03/2022 How often do you have five or more drinks on one occasion? 0 04/03/2022 Financial Resource Strain Answer Date R ecorded Difficulty of Paying Living Expenses 3 07/06/2022 Difficulty of Paying Living Expenses Not on file 07/06/2022 Food Insecurity Answer Date Recorded Worried About Running Out of Food in the Last Ye ar 1 07/06/2022 Transportation Needs Answer Date Record ed Lack of Transportation (Medical) 1 07/06/2022 Housing Stability Answer Date Recorded Unable to Pay for Housing in the Last Year 1 07/06/2022 Sex and Gender Information Value Date Recorded Sex Assigned at Not on file Gender Identity Not on file Sexual Orientation Not on file Obstetrics History Last Filed Vital Signs Vital Sign Reading Time Taken Comments Blood Pressure 137/75 08/07/2023 2:12 PM CDT Pulse 58 08/07/2023 2:12 PM CDT Temperature 36.6 ??C (97.9 ??F) 08/02/2022 9:23 AM CD T Respiratory Rate 16 04/03/2022 8:28 AM CDT Oxygen Saturation 99% 08/07/2023 2:12 PM CDT Inhaled Oxygen Concentration - - Weight 75.5 kg (166 lb 6.4 oz) 08/07/2023 2:09 P M CDT Height 173.2 cm (5' 8.19) 08/07/2023 2:09 PM CD T Body Mass Index 25.16 08/07/2023 2:09 PM CDT Plan of Treatment Health Maintenance Due Date Last Done Comments COVID-19 vaccine series ( season) 2023 Influenza for age 65+ 07/27/2024 09/01/2017 , 08/31/2009, 08/31/2009, Additional history exists BMI (ht and wt on same day) for age 18+ 08/07/2024 08/07/2023, 08/02/2022, 07/06/2022, Additional history exists Depression screening for age 12+ 08/07/2024 08/07/2023, 07/06/2022, 06/15/2021, Additional history exists Medicare Wellness for age 65+ 08/07/2024, 07/06/2022, 06/13/2021, Additional history exists Tetanus booster 06/14/2026 06/14/2016, 03/26, 03/02/1997 Tdap Completed 04/10/2008 Hepatitis C screening for ag e 18-79 Completed 07/07/2016 Pneumococcal series for age 65+ Completed 07/07/2016, 07/22/2013, 03/01/1995 Zoster (shingles) series for age 50+ Completed 11/22/2020, 09/13/2020, 11/26/2012 Procedures Procedure Name Priority Date/Time Associated Diagnosis Comments XR KNEE WB 1 VIEW AP BILATERAL AND 3 VIEWS LEFT Routine 04/11/2024 8:37 AM CDT Arthritis of left knee ANTI HCV Routine 07/07/2016 9:19 AM CDT Need for hepatitis C screening test from Last 3 Months or Most Recently Relevant to Health Maintenance Results * XR KNEE WB 1 VIEW AP BILATERAL AND 3 VIEWS LEFT (04/11/2024 8:37 AM CDT) Anatomical Region Laterality Modality KNEES, KNEE L Computed Radiogr aphy 04/11/2024 1:55 PM CDT Impressions 04/11/2024 1:55 PM CDT Medial compartment narrowing left knee. No fracture. Patellofemoral spurring left knee with joint effusion. Medial compartment narrowing right knee. No osteochondral defect. Dictated by Dillan Rader MD @ 04/11/2024 1:55:55 PM (Electronically Signed) Narrative 04/11/2024 1:55 PM CDT For Patients: ??As a result of the 21st Century Cures Act, medical imaging exams and procedure reports are released immediately into your electronic medical record. ??You may view this report before your referring provider. ??If you have questions, please contact your health care provider. Indication: Arthritis left knee Technique: WB AP BILATERAL, LEFT CRISTI VELASQUEZ, LATERAL Comparison: 07/09/2019 Procedure Note Dillan Rader MD - 04/11/2024 For Patients: As a result of the Century Cures Act, medical imagingexams and procedure reports are released immediately into your electronicmedical record. You may view this report before your referring provider.If you have questions, please contact your health care provider. Indication: Arthritis left knee Technique: WB AP BILATERAL, LEFT VELASQUEZ, SUNRISE, LATERAL Comparison: 07/09/2019 IMPRESSION: Medial compartment narrowing left knee. No fracture. Patellofemoralspurring left knee with joint effusion. Medial compartment narrowing rightknee. No osteochondral defect. Dictated by Dillan Rader MD @ 04/11/2024 1:55:55 PM (Electronically Signed) Cisco Reddy MD GENERAL IMAGING * ANTI HCV [60613.2] (07/07/2016 9:19 AM CDT) HEPATITIS C ANTIBODY Non-Reacti ve Non-Reacti ve 07/07/2016 2:21 PM CDT [facility] Blood BLOOD SPECIMEN / Unknown Venipuncture / Unknown 07/07/2016 9:19 AM CDT 07/07/2016 9:19 AM CDT Narrative [facility] - 07/07/2016 2:21 PM CDT Antibodies to HCV not detected; does not exclude the possibility of exposure to HCV. Cornelio Dial MD SEND OUTS [facility] [address] [place] [address], [place] from Last 3 Months or Most Recently Relevant to Health Maintenance Advance Directives Documents on File Type Date Recorded Patient Operations Specialists Expl anation Healthcare Directive 09/13/2020 020 Care Teams Audio Visual Coordinator Relationship Specialty Start Date End Date Cornelio Dial MD [address] [place] [address] PCP - General Family Practice 06/14/16
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
[2024-04-12] MEDS: 0.9 % SODIUM CHLORIDE 1000 ml 1,000 ML IV (05:45)
[2024-04-12 05:53] LABS: NT Pro B Type NatriureticPept* 205 pg/mL
[2024-04-12 06:06] LABS: HCO3 VBG 21 mmol/L (21-28); PCO2 VBG 37 mmHG (40-50); PO2 VBG 32.4 mmHG (25-47); pH VBG 7.365 (7.32-7.43)
[2024-04-12 06:13] LABS: Hemoglobin A1C* 6.1 % (0-5.6)
[2024-04-12 07:05] LABS: Appearance Urine Clear (Clear); Bilirubin Urine Negative (Negative); Blood Urine Negative (Negative); Color Urine Yellow (Yellow); Glucose Urine Negative (Negative); Ketones Urine Negative (Negative); Leukocyte Esterase Urine Negative (Negative); Nitrite Urine Negative (Negative); Protein Urine 2+ (Negative); Urobilinogen Urine 0.2 (0.2-1.0); pH Urine 6.5 (5.0-8.5)
--- NOTE | 2024-04-12 07:13 | MR_ITS ---
Patient: MARTA CINTRON Facility:?[facility] Patient ID:?[id number] Site Patient ID:?[id number]. Site :?[id number] Study:?MRI-Head W/ and W/O Cont 17CC DOTAREM-04/12/2024 11:58:54 AM Ordering Physician:?DR. ALEJANDRA Final Report: INDICATION: AFib, headaches, dizziness and nausea. TECHNIQUE: Brain MRI with and without contrast. 17 cc gadolinium based contrast administered. COMPARISON: Head CT from 04/12/2024. FINDINGS: Susceptibility artifact limits evaluation of the posterior fossa. No evidence of acute ischemia within limits of examination. No evidence of acute or chronic intracranial blood products. No mass or pathologic intracranial enhancement. Scattered FLAIR hyperintensities within the supratentorial white matter, typical for chronic microvascular ischemic change. No hydrocephalus or extra-axial collections. The pituitary gland, parasellar structures and optic chiasm are normal. Tiny chronic infarcts within the left inferior cerebellar hemisphere. All the major intracranial vascular structures demonstrate normal flow-related signal. The orbital contents are normal. No calvarial or skull base marrow signal abnormality. No obstructive sinus disease. No extracranial soft tissue findings. IMPRESSION: 1. No acute infarction or other acute intracranial pathology, with somewhat limited assessment of the posterior fossa due to susceptibility artifact. 2. No mass or pathologic intracranial enhancement. 3. 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 Mild chronic microvascular ischemic changes. Dictated by Pedro Diamond MD @ 04/12/2024 12:30:20 PM Signed by:?Pedro Diamond MD @04/12/2024 12:30:20 PM (Electronic Signature)
[2024-04-12 07:14] LABS: Amphetamine Screen Urine Negative (Negative); Barbiturate Screen Urine Negative (Negative); Benzodiazepines Screen Urine Negative (Negative); Cannabinoid Screen Urine Negative (Negative); Cocaine Screen Urine Negative (Negative); Methadone Screen Urine Negative (Negative); Methamphetamines Screen Urine Negative (Negative); Opiate Screen Urine Negative (Negative); Oxycodone Screen Urine Negative (Negative); Phencyclidine Screen Urine Negative (Negative); Tricyclic Antidepressant Urine Negative (Negative)
[2024-04-12 07:17] LABS: Bacteria Urine Few; Mucus Urine Few; RBC Urine 0-2 (0-2); Squamous Epithelial Cell Urine Few (None-Few); WBC Urine 0-2 (0-5)
[2024-04-12 07:48] LABS: Lactate* 1.3 mmol/L (0.5-1.9)
[2024-04-12] MEDS: dilTIAZem HCL 125 MG in 0.9 % SODIUM CHLORIDE 100 ml 100 ML IVPB (07:58)
[2024-04-12] MEDS: dilTIAZem 30 MG TABLET PO ×4 (07:59→22:51)
--- NOTE | 2024-04-12 10:00 | P.IMHP_ITS ---
Hospitalist- H&P: HPI History of Present Illness Date Seen: 04/12/24 Chief complaint: Seizure Narrative: Michael Albarado is a 79 year old male past medical history significant for hiatal hernia, BPH, status post previous urinary stent which has since been removed is admitted to the critical care unit for further management new onset atrial fibrillation with RVR and questionable seizure activity. Patient is seen with , Magaly, at bedside as he has no recollection of events overnight. Patient is able to tell me that he had a totally normal day yesterday. Was actually seen in the clinic for a cortisone injection which he has had in the past. Was then called to work. He felt well with no unusual or new symptoms. Went to bed also feeling his normal self. Patient tells me he remembers getting up twice in the middle of the night, last time around 3:00 a.m., to urinate and have 2 bowel movements which he reports as normal. His says around 4:00 a.m. she awoke as the entire bed was shaking. She noticed he was having what appeared to be seizure like movements of his upper body. His legs remained still. He was unable to respond to her. Denies loss of bowel or urine. Upon EMS arriving, patient remained in the same state but when asked to blink if he was hearing them, he did blink in response. Patient has never experienced this in the past. Currently, patient denies headache or dizziness. Denies chest pain, pressure. Denies these symptoms or palpitations at all yesterday as well. Denies shortness of breath. No recent fevers or chills. Did have an episode of nausea last night with 1 of his bowel movements but did not vomit. Denies abdominal pain. No change in urination. History of occasional loose stools, reported as normal overnight. Other than a cortisone injection yesterday, no new medications, takes only a PPI for his hernia and tamsulosin, typical vitamins. [place] . 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 Nonsmoker. Does not vape. Rare alcohol use. Review of Systems Narrative: REVIEW OF SYSTEMS: Complete review of systems performed and negative unless otherwise stated in HPI or below. PFSH PFS Medical History (Updated 04/12/24 @ 10:42 by Gavi Huff PA-C) Thrombocytopenia ?D69.6 - Thrombocytopenia, unspecified (ICD-10) Splenic artery aneurysm ?I72.8 - Aneurysm of other specified arteries (ICD-10) Primary osteoarthritis of both knees ?M17.0 - Bilateral primary osteoarthritis of knee (ICD-10) Adenomatous colon polyp ?D12.6 - Benign neoplasm of colon, unspecified (ICD-10) Bronchiectasis ?J47.9 - Bronchiectasis, uncomplicated (ICD-10) Unspecified asthma ?J45.909 - Unspecified asthma, uncomplicated (ICD-10) Esophageal reflux ?K21.9 - Gastro-esophageal reflux disease without esophagitis (ICD-10) Elevated prostate specific antigen (PSA) ?R97.20 - Elevated prostate specific antigen [PSA] (ICD-10) Surgical History History of repair of right rotator cuff ?Z98.890 - Other specified postprocedural states (ICD-10) History of tonsillectomy and adenoidectomy ?Z90.89 - Acquired absence of other organs (ICD-10) History of hernia repair ?Z98.890 - Other specified postprocedural states (ICD-10) ?Z87.19 - Personal history of other diseases of the digestive system (ICD-10) History of colonoscopy ?Z98.890 - Other specified postprocedural states (ICD-10) Social History Smoking Status: Never smoker Second hand tobacco smoke exposure: No How often do you have a drink containing alcohol: never How often do you have six or more drinks on one occasion: Never AUDIT-C Alcohol total score: 0 Non-prescribed substance use: denies use Meds Home Medications and Allergies Home Medications Medication Instructions Recorded Confirmed Type antiarthritic combination no.2 900 900 mg PO DAILY 04/12/24 04/12/24 History mg tablet (glucosamine-chondroitin) ascorbic acid (vitamin C) 1,000 mg 1 g PO DAILY 04/12/24 04/12/24 History tablet (C-1000) cholecalciferol (vitamin D3) 125 125 mcg PO DAILY 04/12/24 04/12/24 History mcg (5,000 unit) capsule omeprazole magnesium 20 mg 20 mg PO DAILY 04/12/24 04/12/24 History tablet,delayed release (Prilosec OTC) saw palmetto 450 mg capsule 450 mg PO BID 04/12/24 04/12/24 History tamsulosin 0.4 mg capsule 0.4 mg PO QPM 04/12/24 04/12/24 History vitamin E 670 mg (1,000 unit) 670 mg PO DAILY 04/12/24 04/12/24 History capsule zinc gluconate 50 mg tablet 50 mg PO DAILY 04/12/24 04/12/24 History Allergies Allergy/AdvReac Type Severity Reaction Status Date / Time erythromycin base Allergy laryngospas Verified 04/12/24 06:13 m Exam Narrative: Exam Narrative: PHYSICAL EXAM General: Very pleasant, conversant, NAD HEENT: Normocephalic, atraumatic, sclera white, EOMI, oral mucosa moist Cardiovascular: IRRR. No pitting edema Pulmonary: CTA bilaterally without rhonchi, rales, expiratory wheezes. No dyspnea Abdominal: Soft, nondistended, NTTP Neurological: Alert, answering questions appropriately, cranial nerves intact, no focal findings Extremities: No gross joint deformity or swelling. AROMI. Neurovascularly intact Skin: Warm, dry. Const: Vital Signs, click to edit/add: Vital Signs - 24 hr 04/12/24 05:01 04/12/24 05:03 04/12/24 05:16 Temperature 98.2 F Pulse Rate 110 H 113 H Pulse Rate [Pulse Oximeter] 134 H Respiratory Rate 16 20 Blood Pressure 102/67 112/99 H Blood Pressure [Ri ght Arm] Blood Pressure [Ri ght Upper Arm] 91/78 Pulse Oximetry 94 93 93 Oxygen Delivery Me thod Room Air OxyMask Oxygen Flow Rate 2 04/12/24 05:30 04/12/24 05:30 04/12/24 05:32 Temperature Pulse Rate 119 H 112 H Pulse Rate [Pulse Oximeter] Respiratory Rate Blood Pressure 116/81 Blood Pressure [Ri ght Arm] Blood Pressure [Ri ght Upper Arm] Pulse Oximetry 89 90 89 Oxygen Delivery Me thod OxyMask OxyMask Oxygen Flow Rate 2 2 04/12/24 05:46 04/12/24 05:46 04/12/24 05:47 Temperature Pulse Rate 105 H 117 H Pulse Rate [Pulse Oximeter] Respiratory Rate 20 Blood Pressure 102/68 Blood Pressure [Ri ght Arm] Blood Pressure [Ri ght Upper Arm] Pulse Oximetry 95 94 96 Oxygen Delivery Me thod OxyMask Oxygen Flow Rate 2 04/12/24 06:13 04/12/24 06:14 04/12/24 06:15 Temperature Pulse Rate 110 H 122 H 110 H Pulse Rate [Pulse Oximeter] Respiratory Rate Blood Pressure 101/76 Blood Pressure [Ri ght Arm] Blood Pressure [Ri ght Upper Arm] Pulse Oximetry 91 93 92 Oxygen Delivery Me thod Oxygen Flow Rate 04/12/24 06:16 04/12/24 06:30 04/12/24 06:31 Temperature Pulse Rate 115 H 117 H 111 H Pulse Rate [Pulse Oximeter] Respiratory Rate Blood Pressure 106/80 122/50 L Blood Pressure [Ri ght Arm] Blood Pressure [Ri ght Upper Arm] Pulse Oximetry 90 99 99 Oxygen Delivery Me thod Oxygen Flow Rate 04/12/24 06:49 04/12/24 07:00 04/12/24 07:01 Temperature Pulse Rate 110 H 107 H 122 H Pulse Rate [Pulse Oximeter] Respiratory Rate Blood Pressure 121/61 Blood Pressure [Ri ght Arm] Blood Pressure [Ri ght Upper Arm] Pulse Oximetry 93 97 98 Oxygen Delivery Me thod Oxygen Flow Rate 04/12/24 07:15 04/12/24 07:16 04/12/24 07:30 Temperature Pulse Rate 107 H 113 H 117 H Pulse Rate [Pulse Oximeter] Respiratory Rate Blood Pressure 105/76 Blood Pressure [Ri ght Arm] Blood Pressure [Ri ght Upper Arm] Pulse Oximetry 98 98 98 Oxygen Delivery Me thod Oxygen Flow Rate 04/12/24 07:31 04/12/24 07:45 04/12/24 07:47 Temperature Pulse Rate 111 H 86 107 H Pulse Rate [Pulse Oximeter] Respiratory Rate Blood Pressure 109/72 104/75 Blood Pressure [Ri ght Arm] Blood Pressure [Ri ght Upper Arm] Pulse Oximetry 98 98 98 Oxygen Delivery Me thod Oxygen Flow Rate 04/12/24 08:00 04/12/24 08:01 04/12/24 08:32 Temperature 98.2 F Pulse Rate 99 91 91 Pulse Rate [Pulse Oximeter] Respiratory Rate 20 Blood Pressure 94/74 94/74 Blood Pressure [Ri ght Arm] Blood Pressure [Ri ght Upper Arm] Pulse Oximetry 97 97 97 Oxygen Delivery Me thod OxyMask Oxygen Flow Rate 2 04/12/24 08:35 04/12/24 08:39 04/12/24 08:40 Temperature 97.9 F Pulse Rate 109 H Pulse Rate [Pulse Oximeter] Respiratory Rate 18 18 18 Blood Pressure 79/69 L Blood Pressure [Ri ght Arm] 79/69 L 112/71 Blood Pressure [Ri ght Upper Arm] Pulse Oximetry 94 94 94 Oxygen Delivery Me thod Room Air OxyMask Room Air Oxygen Flow Rate 2 04/12/24 08:45 04/12/24 08:50 04/12/24 09:00 Temperature 97.9 F Pulse Rate Pulse Rate [Pulse Oximeter] 118 H 116 H Respiratory Rate 18 18 18 Blood Pressure Blood Pressure [Ri ght Arm] 114/72 119/92 H 92/78 Blood Pressure [Ri ght Upper Arm] Pulse Oximetry 94 94 95 Oxygen Delivery Me thod Room Air Room Air Room Air Oxygen Flow Rate 04/12/24 09:05 04/12/24 09:10 04/12/24 09:15 Temperature 97.9 F 99.0 F Pulse Rate Pulse Rate [Pulse Oximeter] 131 H 116 H 119 H Respiratory Rate 18 18 18 Blood Pressure Blood Pressure [Ri ght Arm] 119/92 H 109/76 123/74 Blood Pressure [Ri ght Upper Arm] Pulse Oximetry 95 96 95 Oxygen Delivery Me thod Room Air Room Air Room Air Oxygen Flow Rate 04/12/24 09:29 04/12/24 09:30 04/12/24 09:45 Temperature 97.6 F 98.9 F Pulse Rate Pulse Rate [Pulse Oximeter] 125 H 111 H 101 H Respiratory Rate 18 18 18 Blood Pressure Blood Pressure [Ri ght Arm] 94/71 108/81 109/83 Blood Pressure [Ri ght Upper Arm] Pulse Oximetry 92 94 96 Oxygen Delivery Me thod Room Air Room Air Room Air Oxygen Flow Rate Hospitalist - H&P: Result Labs Labs: Short CBC 04/12/24 Range/Units 05:05 WBC 9.83 (4.50-11.00) K/uL Hgb 13.6 (13.5-17.5) gm/dL Hct 40.9 (37.0-53.0) % Plt Count 146 (140-440) K/uL BMP 04/12/24 05:05 Sodium 137 Potassium 4.4 Chloride 105 Carbon Dioxide 21 BUN 20 Creatinine 0.9 Glucose 207 H Calcium 9.1 Liver Function 04/12/24 Range/Units 05:05 Total Bilirubin 0.7 (0.1-1.5) mg/dL Direct Bilirubin 0.0 (0.0-0.5) mg/dL AST 20 (12-35) U/L ALT 21 (4-50) U/L Alkaline Phosphatase 88 (40-150) U/L Albumin 4.1 (3.3-5.0) g/dL Urine 04/12/24 Range/Units 06:47 Urine Color Yellow (Yellow) Urine Appearance Clear (Clear) Urine pH 6.5 (5.0-8.5) Ur Specific [place] 1.020 (1.000-1.030) Urine Protein 2+ A (Negative) Urine Glucose (UA) Negative (Negative) ECG Attestation: I personally reviewed and interpreted this ECG as follows: Interpretation: Atrial fibrillation with RVR. Nonspecific ST abnormality, vent rate 136, qtc [address] scan - head: Attestation: I have reviewed the pertinent imaging results. Radiologist's impression: CT head without contrast. COMPARISON: None. FINDINGS: CSF spaces: Within normal limits for age. Brain parenchyma and extra-axial spaces: The iverson-white differentiation is normal. No sign of mass, hemorrhage, or midline shift. No extra-axial fluid collection. Skull base and calvarium: The visualized paranasal sinuses and mastoid air cells demonstrate no acute or significant findings. The visualized orbits are grossly unremarkable. No skull fractures. IMPRESSION: Unremarkable noncontrast head CT. CT scan - chest: Attestation: I have reviewed the pertinent imaging results. Radiologist's impression: CT chest PE was acquired with 95 mL Isovue 370 IV contrast. COMPARISON: None. FINDINGS: Heart and vasculature: Contrast opacification of the pulmonary arterial tree is adequate. No sign of pulmonary embolism. Heart size is normal. Lungs and pleural: Calcified granuloma in the right upper lobe. Atelectasis in mild bronchiectasis in the lung bases. 7 mm nodule along the left fissure image 105 series 5. Lymph nodes/mediastinum: No mediastinal, hilar, or axillary adenopathy. Large hiatal hernia containing the entire stomach. Chest wall: No masses. Upper abdomen: Pancreatic calcifications suggesting chronic pancreatitis. 1.5 cm splenic artery aneurysm. Bones: Unremarkable for age. IMPRESSION: 1. No acute findings. No pulmonary emboli. 2. Large hiatal hernia containing the entire stomach. 3. Atelectasis and bronchiectasis in the lung bases. CT scan - abdomen: Attestation: I have reviewed the pertinent imaging results. Radiologist's impression: CT abdomen and pelvis acquired with 95 mL Isovue 370 IV contrast. COMPARISON: None. FINDINGS: Lower chest: Hiatal hernia containing the entire stomach. Atelectasis and bronchiectasis as seen on today`s chest CT. Liver: Unremarkable. Normal in size and attenuation. No masses. Gallbladder and bile ducts: Unremarkable. No stones or inflammation. No biliary dilatation. Pancreas: Parenchymal calcifications compatible with chronic pancreatitis. Spleen: Unremarkable. Normal in size. No masses. Adrenal glands: Unremarkable. No nodules. Kidneys: Incidental cyst inferior left kidney. Otherwise unremarkable. GI tract: Unremarkable. Normal in caliber. No sign of mass or inflammation. Vasculature: Peripherally calcified splenic artery aneurysm measuring 16 mm in diameter and 27 mm in length. Lymph nodes: No lymphadenopathy. Omentum/Peritoneum/Abdominal Wall: Unremarkable. No sign of mass or infiltration. No free air or significant free fluid. Pelvis: Enlarged prostate. Bones: Unremarkable for age. IMPRESSION: 1. No acute findings. 2. 16 mm peripherally calcified splenic artery aneurysm. 3. Pancreatic calcifications compatible with chronic pancreatitis. 4. Large hiatal hernia containing the entire stomach. Assessment and Plan Assessment and plan (1) Atrial fibrillation with rapid ventricular response: Problem comment: New onset (was seen in the [facility] yesterday but I do not see a set of vitals from that visit). No family history Has been started on diltiazem drip after receiving single IV dose diltiazem 10 mg and oral 30 mg without adequate response, continue to titrate to response Plan to transition to oral when appropriate Telemetry [id number] score 2. Discussed anticoagulation, risks and benefits with patient and . For now, covered with enoxaparin Echo ordered Outpatient follow-up cardiology recommended Status: Acute (2) Seizure: Problem comment: Suspected seizure activity, single episode. No family history ED provider discussed with Dr. Feliz, Neurology, recommending local admission, MRI, outpatient EEG following discharge. Recommends against anti-seizure medications at this time CT head unremarkable. MRI ordered. CT chest/abd/pelvis without acute findings Seizure precautions, telemetry Outpatient follow-up with Neurology recommended Status: Acute (3) Elevated hemoglobin A1c: Problem comment: 6.1, follow-up with PCP for dietary recommendations and monitoring Status: Acute Total Time Spent Total Time Spent: Total time spent caring for the patient today was 75 minutes, > 30 minutes of which was critical care time. This includes time spent for the visit reviewing the chart, time spent during the visit, time spent after the visit and documentation and planning in coordination of care.
[2024-04-12] MEDS: SODIUM CHLORIDE 0.9 % (FLUSH) 10 ML SYRINGE 5 ML IVF ×3 (10:05→20:36)
[2024-04-12] MEDS: 0.9 % SODIUM CHLORIDE 1000 ml 1,000 ML 125 ML IV (11:54)
[2024-04-12] MEDS: OMEPRAZOLE 20 MG CAPSULE DR PO (11:54)
--- NOTE | 2024-04-12 18:49 | PC.NURSE ---
Pt arrived to CCU at 830. Pt alert and oriented. Pt up with SBA. Pt had an ECHO, MRI and neuro consult today- See Providers notes. Pt placed on diltiazem?drip in ER- Drip paused while Pt in MRI. Drip resumed once back to CCU bed. Pt given oral dose of?diltiazem?at 1100 and 1700. Pt?s?diltiazem?drip stopped at 1730 per provider. Pt?s desk monitor shows A-Fib. Pt?s at bedside morning-early afternoon.?
[2024-04-12] MEDS: APIXABAN 5 MG TABLET PO (20:36)
[2024-04-12] MEDS: TAMSULOSIN HCL 0.4 MG CAPSULE PO (20:36)
[2024-04-13 03:00] VITALS: BP 116/71; PULSE 90; RESP 18; TEMP 37.1; O2SAT 95
[2024-04-13] MEDS: dilTIAZem 30 MG TABLET PO ×2 (05:23→11:16)
[2024-04-13] MEDS: OMEPRAZOLE 20 MG CAPSULE DR PO (06:13)
[2024-04-13 06:41] LABS: Hematocrit 40.4 % (37.0-53.0); Hemoglobin* 13.2 gm/dL (13.5-17.5); Mean Corpuscular HGB Conc 33 gm/dL (32-36); Mean Corpuscular Hemoglobin 31 pg (26-34); Mean Corpuscular Volume 95 fL (80-100); Platelet Count* 128 K/uL (140-440); Red Blood Count 4.24 m/uL (4.30-5.90); White Blood Count* 9.38 K/uL (4.50-11.00)
[2024-04-13 06:44] LABS: Slide Review Reflex No
--- NOTE | 2024-04-13 06:52 | PC.NURSE ---
19-: pleasant and cooperative. calls appropriately. indep in rm. HR 80s-110s at rest, with activity HR increases to 120s-130s. pt denies lightheadedness with ambulation.
[2024-04-13 06:58] LABS: Chloride* 108 mmol/L (96-114); Potassium* 4.5 mmol/L (3.6-5.1); Sodium* 139 mmol/L (135-149)
[2024-04-13 07:00] LABS: Cholesterol* 128 mg/dL (90-199)
[2024-04-13 07:01] LABS: Anion Gap 4 mEq/L (7-15); Blood Urea Nitrogen* 23 mg/dL (7-30); Carbon Dioxide* 27 mmol/L (20-32); Creatinine* 0.9 mg/dL (0.5-1.5); Est. Creatinine Clearance* 61.85; Estimated Glomerular Filt Rate 87 ml/min; Glucose* 108 mg/dL (60-115); Triglycerides* 77 mg/dL (40-149)
[2024-04-13 07:02] LABS: Calcium* 8.9 mg/dL (8.4-10.6); HDL Cholesterol* 45 mg/dL (>=40); LDL Cholesterol Calculated 68 mg/dL (<100)
[2024-04-13 07:08] LABS: C Reactive Protein* < 0.5 mg/dL (0.5-1.0)
[2024-04-13 07:17] VITALS: BP 119/82; PULSE 83; RESP 18; TEMP 36.9; O2SAT 95
[2024-04-13] MEDS: APIXABAN 5 MG TABLET PO (08:28)
[2024-04-13] MEDS: SODIUM CHLORIDE 0.9 % (FLUSH) 10 ML SYRINGE 5 ML IVF (08:29)
[2024-04-13 08:32] VITALS: PULSE 70
[2024-04-13 11:15] VITALS: BP 108/69; PULSE 67; RESP 18; TEMP 36.3; O2SAT 96
--- NOTE | 2024-04-13 11:41 | PC.NURSE ---
Pt alert and oriented. Pt had no complaints of pain.?Pt independent in room. Pt converted from A-Fib mid morning- EKG done for conformation. Pt?s pulse has maintained under 100 even with ADL?s. Pt?s at bedside.?Pt's IV removed; catheter intact. Pt discharged home with .
--- NOTE | 2024-04-13 15:41 | P.DS_ITS ---
DS: Providers Provider Date Seen: 04/13/24 Date of admission: 04/12/24 09:57 Primary care physician: Cornelio Dial MD Admitting Clinician: Renae Putnam MD Consults: 04/12/24 09:38 Consult to Physical Therapy [CONS] Routine Comment: Reason(s) for PT Consult:: Evaluate and Treat Any Restrictions?:: No Restrictions Consult to Weapons Designer [CONS] Routine Comment: Reason for Consult:: Social Service Consult Attending Physician on discharge: Gregory Chi MD Date of Discharge: 04/13/24 DS: Diagnosis Discharge Diagnosis (1) Atrial fibrillation with rapid ventricular response: Status: Acute Problem details: New onset (was seen in the [facility] yesterday but I do not see a set of vitals from that visit). No family history Has been started on diltiazem drip after receiving single IV dose diltiazem 10 mg and oral 30 mg without adequate response, continue to titrate to response. At time of discharge patient was in a normal sinus rhythm, nevertheless started him on oral diltiazem CD 120 mg once daily. Telemetry [id number] score 2. Discussed anticoagulation, risks and benefits with patient and . Initially treated with enoxaparin anticoagulant. Later in hospital started oral apixaban 5 mg twice daily. Discharged on apixaban 5 mg twice daily for a minimum of 1 month. Transthoracic echocardiogram 04/12/2024 obtained and cardiology report still pending. Outpatient follow-up cardiology recommended. (2) Myoclonus: Status: Acute Problem details: - syncope myoclonus due to A. Fib. RVR (3) Syncope, cardiogenic: Status: Acute Problem details: - due to A. Fib. RVR (4) Seizure: Status: Acute Problem details: Initially suspected seizure activity, single episode. No family history. ED provider discussed with Dr. Feliz, Neurology, recommending local admission, MRI, outpatient EEG following discharge. Recommends against anti-seizure medications at this time CT head unremarkable. MRI ordered. CT chest/abd/pelvis without acute findings. Seizure precautions, telemetry. Outpatient follow-up with Neurology recommended. With negative CT scan of head and MRI of the head and patient's responsiveness to intervention efforts throughout the course hospitalization, neurologists eventually indicated that most likely patient had cardiogenic syncope in association with atrial fib with RVR and associated myoclonus. (5) Splenic artery aneurysm: Status: Chronic Problem details: Chronic, followed by Vascular. CT shows 16mm (6) Esophageal reflux: Status: Acute Problem details: With h/o hiatal hernia. Takes PPI (7) Elevated hemoglobin A1c: Status: Acute Problem details: 6.1, follow-up with PCP for dietary recommendations and monitoring DS: Summary Hospital Course Hospital Course: Admission history of present illness: ?Michael Albarado is a 79 year old male past medical history significant for hiatal hernia, BPH, status post previous urinary stent which has since been removed is admitted to the critical care unit for further management new onset atrial fibrillation with RVR and questionable seizure activity. ?Patient is seen with , Magaly, at bedside as he has no recollection of events overnight. Patient is able to tell me that he had a totally normal day yesterday. Was actually seen in the clinic for a cortisone injection which he has had in the past. Was then called to work. He felt well with no unusual or new symptoms. Went to bed also feeling his normal self. Patient tells me he remembers getting up twice in the middle of the night, last time around 3:00 a.m., to urinate and have 2 bowel movements which he reports as normal. His says around 4:00 a.m. she awoke as the entire bed was shaking. She noticed he was having what appeared to be seizure like movements of his upper body. His legs remained still. He was unable to respond to her. Denies loss of bowel or urine. Upon EMS arriving, patient remained in the same state but when asked to blink if he was hearing them, he did blink in response. Patient has never experienced this in the past. ?Currently, patient denies headache or dizziness. Denies chest pain, pressure. Denies these symptoms or palpitations at all yesterday as well. Denies shortness of breath. No recent fevers or chills. Did have an episode of nausea last night with 1 of his bowel movements but did not vomit. Denies abdominal pain. No change in urination. History of occasional loose stools, reported as normal overnight. Other than a cortisone injection yesterday, no new medications, takes only a PPI for his hernia and tamsulosin, typical vitamins. ?[place] . 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 Nonsmoker. Does not vape. Rare alcohol use.? Preliminarily it was presumed that patient may have had a single episode of seizure. After extensive evaluation including CT scan of head and MRI of the head consulting neurologist thought most likely patient had cardiogenic syncope and associated myoclonus in association with new onset AFib RVR. In-hospital patient was treated for AFib RVR with IV diltiazem. Eventually switched to oral immediate acting diltiazem. On the morning of 04/13/2024 patient converted to normal sinus rhythm. Preliminary results of transthoracic echocardiogram obtained on 04/12/2024 demonstrate concentric left ventricular hypertrophy with normal LV function, ascending aorta measuring 4.2 cm with aortic root 4.1 cm. Patient is noted have left atrial enlargement, right atrial enlargement, right ventricular enlargement. Noted to have moderate mitral regurgitation. Final cardiology report still pending as of this dictation. For additional details of hospitalization please see discharge diagnosis above. Time Spent with Patient Time attestation: Total time spent providing and/or coordinating discharge services: Exam Narrative: Exam Narrative: General: Very pleasant, conversant, NAD HEENT: Normocephalic, atraumatic, sclera white, EOMI, oral mucosa moist Cardiovascular: Regular rhythm, normal S1-S2, without obvious murmur, gallop, or rub. No pitting edema Pulmonary: CTA bilaterally without rhonchi, rales, expiratory wheezes. No dyspnea Abdominal: Soft, nondistended, NTTP Neurological: Alert, answering questions appropriately, cranial nerves intact, no focal findings Extremities: No gross joint deformity or swelling. AROMI. Neurovascularly intact Skin: Warm, dry. Electrocardiogram and telemetry demonstrates normal sinus rhythm with rate of 70 beats per minute. With ambulation his heart rate increases to 80 beats per minute. Const: Vital Signs, click to edit/add: Vital Signs - 24 hr 04/12/24 15:45 04/12/24 15:46 04/12/24 15:47 Temperature Pulse Rate 74 90 83 Respiratory Rate Blood Pressure 101/76 Pulse Oximetry 95 95 95 Oxygen Delivery Me thod Oxygen Flow Rate 04/12/24 16:12 04/12/24 16:15 04/12/24 16:17 Temperature Pulse Rate 99 90 89 Respiratory Rate Blood Pressure 112/66 Pulse Oximetry 95 95 96 Oxygen Delivery Me thod Oxygen Flow Rate 04/12/24 16:18 04/12/24 16:30 04/12/24 16:32 Temperature Pulse Rate 85 81 92 Respiratory Rate Blood Pressure 100/63 Pulse Oximetry 95 91 96 Oxygen Delivery Me thod Oxygen Flow Rate 04/12/24 16:45 04/12/24 16:46 04/12/24 16:47 Temperature Pulse Rate 73 78 86 Respiratory Rate Blood Pressure 100/75 Pulse Oximetry 94 95 95 Oxygen Delivery Me thod Oxygen Flow Rate 04/12/24 17:00 04/12/24 17:02 04/12/24 17:15 Temperature Pulse Rate 93 87 92 Respiratory Rate Blood Pressure 95/66 Pulse Oximetry 91 96 93 Oxygen Delivery Me thod Oxygen Flow Rate 04/12/24 17:16 04/12/24 17:16 04/12/24 17:17 Temperature Pulse Rate 76 76 78 Respiratory Rate Blood Pressure 102/71 102/71 Pulse Oximetry 94 94 95 Oxygen Delivery Me thod Oxygen Flow Rate 04/12/24 17:30 04/12/24 17:32 04/12/24 17:33 Temperature Pulse Rate 97 86 93 Respiratory Rate Blood Pressure 123/77 Pulse Oximetry 92 93 94 Oxygen Delivery Me thod Oxygen Flow Rate 04/12/24 17:45 04/12/24 18:00 04/12/24 18:02 Temperature Pulse Rate 100 85 101 H Respiratory Rate Blood Pressure 102/62 Pulse Oximetry 92 94 92 Oxygen Delivery Me thod Oxygen Flow Rate 04/12/24 19:30 04/12/24 19:48 04/12/24 20:00 Temperature 98.4 F Pulse Rate 91 95 Respiratory Rate 16 16 Blood Pressure 106/84 Pulse Oximetry 93 Oxygen Delivery Me thod Room Air Oxygen Flow Rate 04/12/24 21:48 04/12/24 23:00 04/12/24 23:00 Temperature 98.6 F Pulse Rate 88 95 Respiratory Rate 16 16 Blood Pressure 105/64 Pulse Oximetry 95 Oxygen Delivery Me thod Room Air Oxygen Flow Rate 04/13/24 03:00 04/13/24 07:17 04/13/24 08:32 Temperature 98.7 F 98.5 F Pulse Rate 90 83 70 Respiratory Rate 18 18 Blood Pressure 116/71 119/82 Pulse Oximetry 95 95 Oxygen Delivery Me thod Room Air Room Air Oxygen Flow Rate 0 04/13/24 11:15 Temperature 97.4 F L Pulse Rate 67 Respiratory Rate 18 Blood Pressure 108/69 Pulse Oximetry 96 Oxygen Delivery Me thod Room Air Oxygen Flow Rate 0 DS: Data Data Completed and Pending Completed studies during hospitalization: Telemetry initially AFib RVR. On date of discharge around 7 in the morning he converted to normal sinus rhythm and remained in normal sinus rhythm thereafter. Echocardiogram cardiology report still pending. Labs on day of discharge: Labs from last 24 hours 04/13/24 06:10 WBC 9.38 RBC 4.24 L Hgb 13.2 L Hct 40.4 MCV 95 MCH 31 MCHC 33 Plt Count 128 L Sodium 139 Potassium 4.5 Chloride 108 Carbon Dioxide 27 Anion Gap 4 L BUN 23 Creatinine 0.9 Estimated Creat Clear 61.85 Estimated GFR 87 Glucose 108 Calcium 8.9 C-Reactive Protein < 0.5 L Triglycerides 77 Cholesterol 128 LDL Cholesterol, Calc 68 HDL Cholesterol 45 Preliminary micro results at discharge 04/12/24 06:47 Urine Culture - Preliminary Urine,Clean Catch < 50,000 COL/ML MIXED GRAM POSITIVE GLENN ISOLATED NO FURTHER WORKUP 04/12/24 05:10 Blood Culture - Preliminary Blood NO GROWTH AFTER 24 HOURS 04/12/24 05:05 Blood Culture - Preliminary Blood NO GROWTH AFTER [address] scan - head: Radiologist's impression: Unremarkable findings. No acute intracranial bleeding. CT scan - chest: Radiologist's impression: IMPRESSION: 1. No acute findings. No pulmonary emboli. 2. Large hiatal hernia containing the entire stomach. 3. Atelectasis and bronchiectasis in the lung bases. CT scan - abdomen and pelvis: Radiologist's impression: IMPRESSION: 1. No acute findings. 2. 16 mm peripherally calcified splenic artery aneurysm. 3. Pancreatic calcifications compatible with chronic pancreatitis. 4. Large hiatal hernia containing the entire stomach. MRI - head: Radiologist's impression: IMPRESSION: 1. No acute infarction or other acute intracranial pathology, with somewhat limited assessment of the posterior fossa due to susceptibility artifact. 2. No mass or pathologic intracranial enhancement. 3. 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 Mild chronic microvascular ischemic changes. Discharge Plan Discharge Disposition: Home, Self-Care Date of Admission: 04/12/24 09:57 Attending Provider on Discharge: Gregory Chi Primary Care Provider: Cornelio Dial Condition: Improved Anticipated Discharge Date/Time: 04/13/24 11:00 Discharge Medications: New diltiazem HCl 120 mg capsule,extended release 24hr 120 mg PO DAILY Qty: 30 2RF Eliquis 5 mg Tablet 5 mg PO BID Qty: 60 0RF Rx Instructions: Stop after 1 month if still in normal sinus rhythm Continued tamsulosin 0.4 mg capsule 0.4 mg PO QPM omeprazole magnesium [Prilosec OTC] 20 mg tablet,delayed release (DR/EC) 20 mg PO DAILY vitamin E 670 mg (1,000 unit) capsule 670 mg PO DAILY ascorbic acid (vitamin C) [C-1000] 1,000 mg tablet 1 g PO DAILY cholecalciferol (vitamin D3) 125 mcg (5,000 unit) capsule 125 mcg PO DAILY glucosamine-chondroitin 900 mg tablet 900 mg PO DAILY saw palmetto 450 mg capsule 450 mg PO BID Rx Instructions: give with food (meal/snack) zinc gluconate 50 mg tablet 50 mg PO DAILY Discharge Orders: Discharge Order (Routine); Ordered 04/13/24 Ordered By: Gregory Chi Patient Education: Diltiazem (By mouth), Apixaban (By mouth), A-fib (Atrial Fibrillation) (DC), Safe Use of Anticoagulants (DC) Additional Instructions: 1. Neurology consultation at [place], [place], 4-6 weeks for follow-up regarding syncope myoclonus due to A. Fib. RVR. 2. Return to clinic or emergency department as needed. Activity Level: No Restrictions and Activity as Tolerated Discharge Diet: Regular Follow Up Appointments: Cornelio Dial MD [Primary Care Provider] - 04/22/24 11:45 am ([facility] for follow-up, and A. Fib RVR, anticoagulation Joi will call patient on Sunday to set-up the Neurology appointment.) Forms: Adtuitive Info Instructions
[2024-04-13 21:25] LABS: Prolactin 36.3 ng/mL (2.1-17.7)
== END 2024-04-13 11:43 | disposition home or self-care (01) | DRG 310 ==
LOC: ED 07:22 → MEDSURG 08:17
PROVIDERS: Physician Assistant; Admitting Provider Family Medicine; Emergency Provider Family Medicine; PCP Surgery; Visit Provider Family Medicine
DX: I48.91 Unspecified atrial fibrillation (principal); R56.9 Unspecified convulsions; G25.3 Myoclonus; R55 Syncope and collapse; J45.909 Unspecified asthma, uncomplicated; K21.9 Gastro-esophageal reflux disease without esophagitis; I72.8 Aneurysm of other specified arteries; K44.9 Diaphragmatic hernia without obstruction or gangrene; R73.09 Other abnormal glucose
CPT/HCPCS: 36415; 70030; 70450; 70553; 71275; 74177; 80048; 80061; 80076; 80306; 81001; 82077; 82140; 82565; 82803; 83036; 83605; 83735; 83880; 84146; 84484; 85025; 85027; 85379; 86140; 87040; 87086; 93005; 93306; 94761; 97116; 97162; 99285; A9270; A9575; J2405; J3490; J7030; Q9967

== ENCOUNTER 2024-05-13 05:47 | Outpatient (CLI) | payer MEDICARE, BC, SELFPAY ==
--- OUTSIDE RECORDS SUMMARY | 2024-05-14 00:58 | XMS_ITS | Clinical Summary ---
Author Organization [employer] [facility] [employer] Address [place], [place] [address] Care Team Providers Care Manager Distribution Name Role Phone Cornelio Dial MD Primary Care Provider [phone] Allergies Active Allergy Reactions Criticality Noted Date [...] medication order composer Take by mouth. Saw [place] 450 mg Whole Herb, take 1 tablet [...] mouth once daily. 04/13/2024 Active glucos sul [id number] (Glucosamine Chondroitin) 550-30-1 mg cap Take 1 [...] Type Department Care Team Description 05/12/[address] [place] [address] Rodolfo Albarado MD Questions 05/05/2024 2:00 PM CDT Office Visit [address] [place] [address] Rodolfo Albarado MD Consult (Per PCP, afib, EKG tracings under scans) 05/05/2024 Travel 04/23/2024 Orders Only [facility] Scanner 1 scan: (1-Ord) RCM 04/22/2024 11:45 AM CDT Office Visit [facility] [address] [place] [address] Cornelio Dial MD Post-op 04/22/2024 Telephone [facility] [address] [place] [address] Cornelio Dial MD Testing (EEG) 04/22/2024 Travel 04/17/2024 Nurse Triage [facility] [address] [place] [address] Cornelio Dial MD Back Pain 04/15/2024 Nurse Triage [facility] [address] [place] [address] Cornelio Dial MD Musculoskeletal Problem 04/12/2024 10:00 AM CDT Ancillary Procedure [facility] [address] [place] [address] 04/12/2024 Orders Only [facility] Scanner 1 scan: (1-Ord) [place], ABDOMEN PELVIS W/CON, 04/12/2024 04/12/2024 Orders Only [facility] Scanner 1 scan: (1-Ord) [facility], ANGIO CHEST PE PROTOCOL, 04/12/2024 04/12/2024 Orders Only [facility] Scanner 1 scan: (1-Ord) [place], XR EYE FOREIGN BODY, 04/12/2024 04/12/2024 Orders Only [facility] Scanner 1 scan: (1-Ord) [facility], HEAD/BRAIN WWO CONTRAST, 04/12/2024 04/12/2024 Orders Only [facility] Scanner 1 scan: (1-Ord) [place], HEAD/BRAIN WO CON, 04/12/2024 04/12/2024 Office Visit [facility] [address] [facility] [address] [facility] [address] [place] [address] Jak Feliz MD Telehealth ([facility]) 04/11/2024 9:00 AM CDT Office Visit [facility] [address] [place] [address] Cisco Reddy MD Consult (Left Knee) 04/11/2024 8:45 AM CDT Ancillary Procedure [facility] [address] [place] [address] 04/11/2024 Travel 04/07/2024 Telephone [facility] [place] [address] [facility] [address] [place] [phone] Cisco Reddy MD Appointment (Need x-rays) 02/25/2024 Telephone [facility] [address] [place] [address] Cornelio Dial MD Referral (colonoscopy ) from [...] AM CDT ECHOCARDIOGRAM MARTA ALBARADO ?Accession#: ?? [id number] : ?1945 79 years Study Date: ?? 04/12/2024 10:11:01 AM Gender: M ? BP: ? 109/83 mmHg Height: 178.00 cm ? BSA: ?1.94 m? ? ? Weight: 76.00 kg ?Tech: ? MCK ?Referring MD: GAVI LEPE Site: ? [facility] Reading Location: [place] Patient Location: Inpatient. Procedure: 2D, Color Doppler [...] . This study was interpreted by an [facility] accredited facility. CC: HIM (med records) [facility], Med/Surg - IP [facility]. ??Final ?? Procedure Note Dillan Austin MD - 04/12/2024 ECHOCARDIOGRAM MARTA ALBARADO : 1945 79 years Study Date: 04/12/2024 10:11:01 AM Gender: M BP: 109/83 mmHg Height: 178.00 cm BSA: 1.94 m? ? ? Weight: 76.00 kg Tech: [facility] Referring MD: GAVI LEPE Site: [facility] Reading Location: [place] Patient Location: Inpatient. Procedure: 2D, Color Doppler [...] . This study was interpreted by an [facility] accredited facility. CC: HIM (med records) [facility], Med/Surg - IP [facility]. Final Gavi Lepe PA ECHO ORD * [...] knee Technique: WB AP BILATERAL, LEFT VELASQUEZCRISTI CHEMEA, LATERAL Comparison: 07/09/2019 Procedure Note Dillan Rader [...] MD @ 04/11/2024 1:55:55 PM (Electronically Signed) iCsco Reddy MD GENERAL IMAGING * ANTI HCV [31791.2] (07/07/2016 9:19 AM CDT) HEPATITIS C ANTIBODY Non-Reacti ve Non-Reacti ve 07/07/2016 2:21 PM CDT [facility] Blood BLOOD SPECIMEN / Unknown Venipuncture / Unknown 07/07/2016 9:19 AM CDT 07/07/2016 9:19 AM CDT Narrative [facility] - 07/07/2016 2:21 PM CDT Antibodies to HCV not detected; does not exclude the possibility of exposure to HCV. Cornelio Dial MD SEND OUTS [facility] [address] [place] [address], from Last 3 Months or Most Recently Relevant to Health Maintenance Advance Directives Documents on File Type Date Recorded Patient Store Team Leader Expl anation Healthcare Directive 09/13/2020 020 Care Teams Manager Distribution Relationship Specialty Start Date End Date Cornelio Dial MD [address] [place] [address] PCP - General Family Practice 06/14/16
--- OUTSIDE RECORDS SUMMARY | 2024-05-14 00:58 | XMS_ITS | Clinical Summary ---
Author Organization [facility] Address [address] [place] [id number] Care Team Providers Care Mechanical Equipment Test Engineer Name Role Phone Unassigned, Provider Primary Care Provider Unava ilable Source Comments You are receiving this document as you are listed as the primary care provider,follow-up provider, or the patient has been referred to you for consultation.This is in compliance with the Medicare and[facility] EHR Incentive Program,which states Providers who transition their patient to another setting of careor provider of care or refers their patient to another provider of care shouldprovide summary care record for each transition of care or referral. Proviation Allergies Active Allergy Reactions Criticality Noted Date [...] age to complete this topic Care Teams Mechanical Equipment Test Engineer Relationship Specialty Start Date End Date Unassigned, Provider [address] [place] [address] PCP - General 02/01/01
== END 2024-05-13 05:48 | disposition home or self-care (01) ==
LOC: AMB 05-14 00:56
PROVIDERS: PCP Surgery; Visit Provider Family Medicine
DX: R41.82 Altered mental status, unspecified (principal)
CPT/HCPCS: A0425; A0427

== ENCOUNTER 2024-05-13 06:13 | Observation (INO) | payer MEDICARE, BC, SELFPAY ==
[2024-05-13] VITALS (32 sets, daily range): BP systolic 95–133; BP diastolic 44–83; PULSE 46–76; RESP 12–16; TEMP 36.2–36.9; O2SAT 86–100; BMI 26.0
--- NOTE | 2024-05-13 06:26 | ED.GENADULT ---
HPI - General Adult General Chief complaint: Unspecified Complaint, Adult Stated complaint: altered mental status Time Seen by Provider: 05/13/24 06:18 Source: patient Mode of arrival: ambulatory Limitations: no limitations History of Present Illness HPI narrative: 79-year-old male presents to the emergency department by EMS after an unresponsive spell at home. Similar spell on 04/12, those notes and entire hospital course and imaging are reviewed will be summarized as below. He went to bed normally last night, sleeping in bed next to his . At 5:28 a.m. this morning, she notice that he was shaking and unresponsive. She called 911 and they did talk her through CPR. It sounds like she was doing compressions even though he was attempting to speak at times, completely breathing on his own and was moving his arms at times as well though he was not fully responsive. EMS did arrive fairly promptly and at that time he was starting to come to but seemed drowsy and a little confused. O2 sats were around 90% though he was breathing spontaneously. Blood sugar was 165. He could follow some basic commands and by the time he got to the hospital, he was able to complain that he was a little nauseated. He has not had any vomiting. No known unusual ingestions or trauma. He tells me that he does not take any home medications. Review of the record suggests that he was recently started on diltiazem and Eliquis for the episode of AFib on 04/12. Also has prescriptions for omeprazole and Flomax. Notes from 04/12 show that he had a similar shaking spell but was found to be in rapid AFib. Ultimately he was started on diltiazem and did convert prior to hospital discharge. 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 He was not recommended to be started on any antiseizure medication and was to have a follow-up outpatient EEG and neuro consult. EMS tells me that he actually did have the EEG and was scheduled to see neuro 5 days ago but unfortunately the provider had to cancel for unknown reasons. No other suspicious seizure episodes besides the event on the and today. He did wet the bed with this episode which is very uncharacteristic for him. No recent fever or signs of illness. He has been taking his medications as prescribed. Past medical history notable for the recent episode of AFib, history suspicious for recent seizures but he denies any other long-term medical problems, I will clarify this further when his arrives. Medications per him were denied but reviewed from his recent hospital discharge. He is a nonsmoker, denies significant alcohol intake. ROS would seem unreliable as patient is confused but he does report current nausea. Other than the shaking episode and unresponsiveness, ROS was otherwise negative per the EMS team upon questioning his . Related Data Home Medications ?Medication ?Instructions ?Recorded ?Confirmed antiarthritic combination no.2 900 900 mg PO DAILY 04/12/24 05/13/24 mg tablet (glucosamine-chondroitin) ascorbic acid (vitamin C) 1,000 mg 1 g PO DAILY 04/12/24 05/13/24 tablet (C-1000) cholecalciferol (vitamin D3) 125 125 mcg PO DAILY 04/12/24 05/13/24 mcg (5,000 unit) capsule omeprazole magnesium 20 mg 20 mg PO DAILY 04/12/24 05/13/24 tablet,delayed release (Prilosec OTC) saw palmetto 450 mg capsule 450 mg PO BID 04/12/24 05/13/24 tamsulosin 0.4 mg capsule 0.4 mg PO QPM 04/12/24 05/13/24 vitamin E 670 mg (1,000 unit) 670 mg PO DAILY 04/12/24 05/13/24 capsule zinc gluconate 50 mg tablet 50 mg PO DAILY 04/12/24 05/13/24 Previous Rx's ?Medication ?Instructions ?Recorded apixaban 5 mg tablet (Eliquis) 5 mg PO BID #60 tabs 04/13/24 diltiazem HCl 120 mg 120 mg PO DAILY #30 caps 04/13/24 capsule,extended release 24 hr Allergies Allergy/AdvReac Type Severity Reaction Status Date / Time erythromycin base Allergy laryngospas Verified 04/12/24 06:13 m [facility] Medical History (Updated 05/14/24 @ 06:09 by Leonid Escoto MD) Thrombocytopenia ?D69.6 - Thrombocytopenia, unspecified (ICD-10) Splenic artery aneurysm ?I72.8 - Aneurysm of other specified arteries (ICD-10) Primary osteoarthritis of both knees ?M17.0 - Bilateral primary osteoarthritis of knee (ICD-10) Adenomatous colon polyp ?D12.6 - Benign neoplasm of colon, unspecified (ICD-10) Bronchiectasis ?J47.9 - Bronchiectasis, uncomplicated (ICD-10) Unspecified asthma ?J45.909 - Unspecified asthma, uncomplicated (ICD-10) Esophageal reflux ?K21.9 - Gastro-esophageal reflux disease without esophagitis (ICD-10) Elevated prostate specific antigen (PSA) ?R97.20 - Elevated prostate specific antigen [PSA] (ICD-10) Surgical History History of repair of right rotator cuff ?Z98.890 - Other specified postprocedural states (ICD-10) History of tonsillectomy and adenoidectomy ?Z90.89 - Acquired absence of other organs (ICD-10) History of hernia repair ?Z98.890 - Other specified postprocedural states (ICD-10) ?Z87.19 - Personal history of other diseases of the digestive system (ICD-10) History of colonoscopy ?Z98.890 - Other specified postprocedural states (ICD-10) Social History What is your current living situation?: I presently have a place to live Problems where you live: no known problems Problems where you live details: NA In the past 12 months, utilities in danger of being shut off: no In past 12 months, lack of transportation kept you from medical appts, meetings, work, or getting things needed for daily living: no In the past 12 mos, have been you worried that your food would run out before you had money to buy more?: never true In the past 12 mos, the food you bought just didn't last and you didn't have money to buy more?: never true Highest level of school completed/degree received: Associate degree: occupational, technical, vocational program Smoking Status: Never smoker Do you use any of these nicotine containing products: None Second hand tobacco smoke exposure: No How often do you have a drink containing alcohol: never How often do you have six or more drinks on one occasion: Never AUDIT-C Alcohol total score: 0 Non-prescribed substance use: denies use Caffeine: No How often does anyone, including family, friends and others, physically hurt you: never How often does anyone, including family, friends and others, insult or talk down to you: never How often does anyone, including family, friends and others, threaten you with harm: never How often does anyone, including family, friends and others, scream or curse at you: never service: Yes Exam Const: Vital Signs, click to edit/add: Vital Signs - 24 hr 05/13/24 06:31 05/13/24 06:35 05/13/24 06:37 Temperature 97.2 F L Pulse Rate Pulse Rate [Pulse Oximeter] 56 L 61 76 Respiratory Rate 14 14 12 Blood Pressure Blood Pressure [Ri ght Upper Arm] 95/59 L 101/54 L 116/67 Pulse Oximetry 97 96 94 Oxygen Delivery Me thod OxyMask OxyMask Nasal Cannula Oxygen Flow Rate 4 4 4 05/13/24 06:45 05/13/24 06:49 05/13/24 06:51 Temperature Pulse Rate 58 L 61 Pulse Rate [Pulse Oximeter] 61 Respiratory Rate 16 14 Blood Pressure 97/52 L 97/51 L Blood Pressure [Ri ght Upper Arm] 97/52 L Pulse Oximetry 96 97 96 Oxygen Delivery Me thod OxyMask Nasal Cannula Nasal Cannula Oxygen Flow Rate 4 4 4 05/13/24 07:01 Temperature Pulse Rate 69 Pulse Rate [Pulse Oximeter] Respiratory Rate 16 Blood Pressure 101/60 Blood Pressure [Ri ght Upper Arm] Pulse Oximetry 97 Oxygen Delivery Me thod Nasal Cannula Oxygen Flow Rate 4 Documenting provider has reviewed patient's vital signs: yes Common normals: alert General appearance: well kempt Other: Drowsy but easily arousable and will answer questions though with not perfect reliability. No signs of intoxication. Head is atraumatic. HENMT: Common normals: normocephalic, moist oral mucous membranes, oropharynx normal and dentition normal Head and scalp: normocephalic Face and sinus: normal facial exam Eye: Common normals: PERRL, EOMs intact bilaterally, conjunctivae normal and no scleral icterus General eye: normal appearance of both eyes Conjunctiva: conjunctiva(e) normal Pupil: PERRL Neck & C-Spine: Common normals: full ROM and no lymphadenopathy Resp: Common normals: normal respiratory effort, no use of accessory muscles and clear to auscultation bilaterally Effort & inspection: able to speak in complete sentences Auscultation: clear to auscultation bilaterally Cardio: Common normals: regular rate, regular rhythm, S1 normal heart sound, S2 normal heart sound and no murmurs Rate: regular rate Rhythm: regular rhythm Heart sounds: S1 normal and S2 normal GI: Common normals: Normal to inspection, nondistended, normoactive bowel sounds present, soft to palpation, non-tender and no hepatosplenomegaly Palpation: soft and no hepatosplenomegaly Extremity: Common normals: normal to inspection, full ROM and normal capillary refill Neuro: Sensorium/orientation: alert Other: Speech is slow and soft but otherwise production seems normal. He can move his extremities on command with no obvious discrepancies between right and left but is just slow when following commands upon initial exam. Normal marine water tender strength and reflexes of both patella. Normal Babinski bilaterally. Cranial nerves 2-12 intact and symmetric. Psych: Appearance: well kempt Insight: fair Judgement: fair Skin: Common normals: no rashes or lesions noted General skin exam: no rashes or lesions noted Course Course ED Course: Shaking episode with urinary incontinence suspicious for seizure. Differential diagnosis also includes intracranial hemorrhage, stroke, cardiac event, syncopal spell, my clonus, intoxication, trauma, amongst others. Most suspicious of seizure. Will load with 1 g of Keppra, placed on cardiac cath lab radiology technologist, typical labs. I do not think that I am going to repeat his CT until I talked to neuro. They are called. They may have some insight for me on his recent EEG since unfortunately he was unable to follow-up with that provider. Will also perform EKG and some basic cardiac labs today as well. Bolus 1 L of normal saline and give 4 of Zofran for his reported nausea. Patient did have an episode of bradycardia lasting less than 30 seconds, no lower than 30 beats per minute observed by the nurse. By the time she came and grabbed me, I probably attended and saw that his pulse was reading 70 on the monitor and I palpated a vigorous pulse of 70 and he was answering questions. No other interventions other than placement of pacer pads was performed. Reevaluation(s) Time of Reevaluation #1: 07:09 Reevaluation #1: I was able to speak with Dr. Cesar Gillette from Neurology. Together, we agreed that with this 2nd episode that he should be started on anticonvulsants. I have loaded a g of Keppra and patient will start on 500 of oral Keppra twice daily, next dose will be this evening. Neither of us think that repeat imaging would be warranted. There are a few basic lab still pending but the initials show a markedly elevated lactate which is also suggestive of seizure and then otherwise expected findings, stable from last month. I spoke with patient's and informed her of findings as well. We both think that he should be observed overnight to make sure that this postictal state appropriately wears off, that he tolerates the Keppra well and that he has no further breakthrough seizures and no further bradycardia. Spoke with the hospitalist team and they were agreeable to admission. Neurology recommends outpatient neurology follow-up after initiation of Keppra for review of the EEG and further ongoing care. Vital Signs Vital signs: Initial Vital Signs Pulse Rate 56 L 05/13/24 06:31 Pulse Rhythm Regular 05/13/24 06:31 Respiratory Rate 14 05/13/24 06:31 Respiratory Effort Normal, Spontaneous 05/13/24 06:31 Respiratory Depth Shallow 05/13/24 06:31 Blood Pressure 95/59 L 05/13/24 06:31 Blood Pressure Mean 71 05/13/24 06:31 Blood Pressure Position Supine 05/13/24 06:31 Pulse Oximetry 97 05/13/24 06:31 Oxygen Delivery Method OxyMask 05/13/24 06:31 Oxygen Flow Rate 4 05/13/24 06:31 Vital Signs Pulse Rate 56 L 05/13/24 06:31 Respiratory Rate 14 05/13/24 06:31 Blood Pressure 95/59 L 05/13/24 06:31 Pulse Oximetry 97 05/13/24 06:31 Oxygen Delivery Method OxyMask 05/13/24 06:31 Oxygen Flow Rate 4 05/13/24 06:31 Temperature 97.7 F 05/14/24 07:20 Pulse Rate 59 L 05/14/24 07:20 Respiratory Rate 16 05/14/24 07:20 Blood Pressure 138/65 05/14/24 07:20 Pulse Oximetry 95 05/14/24 07:20 Oxygen Delivery Method Room Air 05/14/24 07:20 Oxygen Flow Rate 4 05/13/24 08:31 Medications Administered Medications: Discontinued Medications Generic Name Dose Route Start Last Admin Trade Name Freq PRN Reason Stop Dose Admin Apixaban 5 mg 05/13/24 21:00 05/14/24 09:29 Apixaban 5 Mg Tablet PO 5 mg BID TAURUS Administration Diltiazem HCl 120 mg 05/13/24 13:40 05/14/24 09:29 Diltiazem 120 Mg Cap.Er.24h PO 120 mg DAILY TAURUS Administration Hydromorphone HCl 0.2 - 0.5 mg 05/14/24 08:13 05/14/24 08:47 Hydromorphone 0.5 Mg/0.5 Ml Inj IVP 0.5 mg Q2H PRN Administration Pain Sodium Chloride 1,000 mls @ 500 mls/hr 05/13/24 06:19 05/13/24 08:30 0.9 % Sodium Chloride 1000 Ml IV 05/13/24 08:18 Infused .Q2H TAURUS Infusion Levetiracetam 1,000 mg/ Sodium 110 mls @ 440 mls/hr 05/13/24 06:24 05/13/24 06:54 Chloride IVPB 05/13/24 06:25 Infused ONCE ONE Infusion Sodium Chloride 1,000 mls @ 125 mls/hr 05/13/24 09:11 05/14/24 05:20 0.9 % Sodium Chloride 1000 Ml IV Infused .Q8H TAURUS Infusion Sodium Chloride 1,000 mls @ 1,000 mls/hr 05/13/24 09:11 05/14/24 05:20 0.9 % Sodium Chloride 1000 Ml IV 05/13/24 10:10 Infused .Q1H TAURUS Infusion Levetiracetam 500 mg 05/13/24 21:00 05/14/24 09:28 Levetiracetam 500 Mg Tablet PO 500 mg BID TAURUS Administration Lidocaine HCl 6 ml 05/14/24 03:47 05/14/24 07:03 Lidocaine Hcl 2 % Jelly (Top) Sterile UR 6 ml ONCE PRN Administration For urinary catheter insertion Lorazepam 0.5 mg 05/14/24 05:39 05/14/24 05:59 Lorazepam 2 Mg/Ml Inj IVP 05/14/24 05:40 0.5 mg ONCE ONE Administration Omeprazole 20 mg 05/14/24 07:00 05/14/24 06:23 Omeprazole [address] PO 20 mg DAILY@0700 TAURUS Administration Omeprazole 20 mg 05/13/24 14:16 05/13/24 14:25 Omeprazole [address] PO 05/13/24 14:17 20 mg ONCE ONE Administration Ondansetron HCl 4 mg 05/13/24 06:18 05/13/24 06:37 Ondansetron 2 Mg/Ml Inj IVP 4 mg ONCE PRN Administration Ondansetron HCl 4 mg 05/13/24 09:11 05/14/24 08:38 Ondansetron 2 Mg/Ml Inj IVP 4 mg Q4H PRN Administration Nausea Oxybutynin Chloride 5 mg 05/14/24 09:00 05/14/24 09:29 Oxybutynin Chloride 5 Mg Tablet PO 5 mg BID TAURUS Administration Sodium Chloride 5 ml 05/13/24 09:11 05/13/24 21:09 Sodium Chloride 0.9 % (Flush) 10 Ml Syringe IVF 5 ml BID TAURUS Administration Tamsulosin HCl 0.4 mg 05/13/24 18:00 05/13/24 17:54 Tamsulosin Hcl 0.4 Mg Capsule PO 0.4 mg QPM TAURUS Administration Medical Decision Making Lab Data Lab results reviewed: Yes I reviewed the patient's lab results Lab results narrative: Markedly elevated lactate is likely secondary to the seizure. Remainder of labs are consistent with previous values. Electrolytes are pending at the time of this completion of dictation Labs: Lab Results 05/13/24 05/13/24 Range/Units 06:18 06:20 WBC 5.46 (4.50-11.00) K/uL RBC 4.29 L (4.30-5.90) m/uL Hgb 13.4 L (13.5-17.5) gm/dL Hct 39.9 (37.0-53.0) % MCV 93 (80-100) fL MCH 31 (26-34) pg MCHC 34 (32-36) gm/dL RDW Coeff of Joshua 12.5 (11.5-15.5) % Plt Count 145 (140-440) K/uL Neut % (Auto) 63.3 (42.0-72.0) % Lymph % (Auto) 27.1 (20-44) % Ellis % (Auto) 6.0 (0.0-11.0) % Eos % (Auto) 2.0 (0.0-7.0) % Baso % (Auto) 0.7 (0.0-3.0) % Neut # (Auto) 3.45 (1.7-7.0) K/uL Lymph # (Auto) 1.48 (0.90-2.90) K/uL Ellis # (Auto) 0.30 (0.00-0.90) K/UL Eos # (Auto) 0.11 (0.00-0.50) K/uL Baso # (Auto) 0.04 (0.00-0.30) K/uL Abs Immat Gran (auto) 0.05 (0.00-0.30) K/uL Imm/Tot Granulo (auto) 0.9 % Sodium 136 (135-149) mmol/L Potassium 4.5 (3.6-5.1) mmol/L Chloride 105 (96-114) mmol/L Carbon Dioxide 18 L (20-32) mmol/L Anion Gap 13 (7-15) mEq/L BUN 16 (7-30) mg/dL Creatinine 0.8 (0.5-1.5) mg/dL Estimated GFR 90 ml/min Glucose 231 H (60-115) mg/dL Lactate 6.6 H* (0.5-1.9) mmol/L Calcium 8.8 (8.4-10.6) mg/dL Magnesium 2.0 (1.5-2.6) mg/dL Total Bilirubin 0.8 (0.1-1.5) mg/dL AST 18 (12-35) U/L ALT 18 (4-50) U/L Alkaline Phosphatase 94 (40-150) U/L Troponin I 0.02 (0.01-0.04) ng/mL Total Protein 6.3 (6.0-8.3) g/dL Albumin 4.0 (3.3-5.0) g/dL Ethyl Alcohol < 0.01 L (0.01-0.03) % POC Troponin I 0.00 L (0.01-0.04) ng/ml ECG Data Attestation: I personally reviewed and interpreted this ECG as follows: Prior ECG tracings: available for review Interpretation: normal sinus rhythm, rate 72. normal axis and intervals. No ischemia. Previous afib resolved Discharge Plan Discharge Clinical Impression: New onset seizure without head trauma, Tonic clonic seizures Patient Disposition: Admitted As Observation Condition: Stable
[2024-05-13 06:27] LABS: Basophils Absolute Auto 0.04 K/uL (0.00-0.30); Basophils Percent Auto 0.7 % (0.0-3.0); Eosinophils Absolute Auto 0.11 K/uL (0.00-0.50); Hematocrit 39.9 % (37.0-53.0); Hemoglobin* 13.4 gm/dL (13.5-17.5); Immature Granulocytes Abs Auto 0.05 K/uL (0.00-0.30); Immature Granulocytes Pct Auto 0.9 %; Lymphocytes Absolute Auto 1.48 K/uL (0.90-2.90); Lymphocytes Percent Auto 27.1 % (20-44); Mean Corpuscular HGB Conc 34 gm/dL (32-36); Mean Corpuscular Hemoglobin 31 pg (26-34); Mean Corpuscular Volume 93 fL (80-100); Neutrophils Absolute Auto 3.45 K/uL (1.7-7.0); Neutrophils Percent Auto 63.3 % (42.0-72.0); Platelet Count* 145 K/uL (140-440); RDW Coefficient of Variation % 12.5 % (11.5-15.5); Red Blood Count 4.29 m/uL (4.30-5.90); White Blood Count* 5.46 K/uL (4.50-11.00)
[2024-05-13 06:30] LABS: Lactate* 6.6 mmol/L (0.5-1.9)
[2024-05-13] MEDS: 0.9 % SODIUM CHLORIDE 1000 ml 1,000 ML 500 ML IV (06:36)
[2024-05-13] MEDS: ONDANSETRON 2 MG/ML inj 4 MG IVP (06:37)
[2024-05-13 06:44] LABS: Slide Review Reflex No
[2024-05-13 06:53] LABS: Chloride* 105 mmol/L (96-114)
[2024-05-13 06:54] LABS: Potassium* 4.5 mmol/L (3.6-5.1); Sodium* 136 mmol/L (135-149)
[2024-05-13 06:56] LABS: Alkaline Phosphatase* 94 U/L (40-150); Anion Gap 13 mEq/L (7-15); Aspartate Amino Transferase* 18 U/L (12-35); Bilirubin Total* 0.8 mg/dL (0.1-1.5); Blood Urea Nitrogen* 16 mg/dL (7-30); Carbon Dioxide* 18 mmol/L (20-32); Creatinine* 0.8 mg/dL (0.5-1.5); Estimated Glomerular Filt Rate 90 ml/min; Total Protein* 6.3 g/dL (6.0-8.3)
[2024-05-13 06:57] LABS: Alanine Aminotransferase* 18 U/L (4-50); Calcium* 8.8 mg/dL (8.4-10.6); Glucose* 231 mg/dL (60-115)
[2024-05-13 07:08] LABS: Troponin I* 0.02 ng/mL (0.01-0.04)
[2024-05-13 07:14] LABS: Ethanol* < 0.01 % (0.01-0.03)
--- OUTSIDE RECORDS SUMMARY | 2024-05-13 07:24 | XMS_ITS | Clinical Summary ---
[facility] Address [address] [place] [id number] Care Team Providers Care Rig Hand Name Role Phone Unassigned, Provider Primary Care Provider Unava ilable Source Comments You are receiving this document as you are listed as the primary care provider,follow-up provider, or the patient has been referred to you for consultation.This is in compliance with the Medicare and[facility] E[facility] Incentive Program,which states Providers who transition their patient to another setting of careor provider of care or refers their patient to another provider of care shouldprovide summary care record for each transition of care or referral. [employer] Allergies Active Allergy Reactions Criticality Noted Date [...] age to complete this topic Care Teams Rig Hand Relationship Specialty Start Date End Date Unassigned, Provider [address] [place] [address] PCP - General 02/01/01
--- OUTSIDE RECORDS SUMMARY | 2024-05-13 07:24 | XMS_ITS | Clinical Summary ---
Author Organization [employer] Address [place], [place] [address] Care Team Providers Care Musical String Maker Name Role Phone Cornelio Dial MD Primary Care Provider [phone]- [phone] Allergies Active Allergy Reactions Criticality Noted Date [...] medication order composer Take by mouth. Saw Baxter 450 mg Whole Herb, take 1 tablet by mouth daily 0 05/20/2018 Active cholecalciferol (VITAMIN D-3) 2,000 unit capsule Take 1 capsule by mouth once daily. 0 06/07/2020 Active tamsulosin (FLOMAX) 0.4 mg capsuleIndications:B PH without urinary obstruction Take 1 Capsule (0.4 mg) by mouth once daily after a meal. 90 Capsule 3 08/07/2023 Active Eliquis 5 mg tablet TAKE 1 TABLET BY MOUTH TWICE DAILY. STOP AFTER 1 MONTH IF STILL IN NORMAL SINUS RHYTHM 04/13/2024 Active dilTIAZem CD (CARDIZEM CD) 120 mg extended release 24 hr capsule Take 120 mg by mouth once daily. 04/13/2024 Active glucos sul 7SLy-ghq-ucrfu-C-Mn (Glucosamine Chondroitin) 550-30-1 mg cap Take 1 Tablet by mouth once daily. 04/12/2024 Active Magnesium 200 mg tab Take 1 Tablet (200 mg) by mouth once daily. 05/05/2024 Active Active Problems Problem Noted Date Diagnosed Date Atrial fibrillation with rapid ventricular respo nse 04/22/2024 Cardiac syncope 04/22/2024 Myoclonus 04/22/2024 Arthritis of left knee 04/11/2024 Family history of colonic polyps 02/26/2024 Overview: Colonoscopy 07/2021 normal, FHx colon polyps, repeat in 5 years Thrombocytopenia 06/04/2019 Overview: Mild - 130-150 - [...] Problem Noted Date Diagnosed Date Resolved Date Primary osteoarthritis of right knee 07/09/2019 04/22/2024 Benign neoplasm of colon 03/04/2007 Incidental pulmonary nodule, > 3mm and < 8mm 07/22/2013 Overview: due for repeat 05/05 Encounters Date Type Department Care Team Description 05/12/[address] [place] [address] Rodolfo Albarado MD Questions 05/05/2024 2:00 PM CDT Office Visit [address] Malcolm [address] [place] [address] Rodolfo Albarado MD Consult (Per PCP, afib, EKG tracings under scans) 05/05/2024 Travel 04/23/2024 Orders Only [facility] Scanner 1 scan: (1-Ord) RCM 04/22/2024 11:45 AM CDT Office Visit [facility] [address] [place] [address] Cornelio Dial MD Post-op 04/22/2024 Telephone [facility] [address] [place] [address] Cornelio Dial MD Testing (EEG) 04/22/2024 Travel 04/17/2024 Nurse Triage [facility] [address] [place] [address] Cornelio Dial MD Back Pain 04/15/2024 Nurse Triage [facility] [address] [place] [address] Cornelio Dial MD Musculoskeletal Problem 04/12/2024 10:00 AM CDT Ancillary Procedure [facility] [address] [place] [address] 04/12/2024 Orders Only [facility] Scanner 1 scan: (1-Ord) [place], ABDOMEN PELVIS W/CON, 04/12/2024 04/12/2024 Orders Only [facility] Scanner 1 scan: (1-Ord) [facility], ANGIO CHEST PE PROTOCOL, 04/12/2024 04/12/2024 Orders Only [facility] Scanner 1 scan: (1-Ord) [place], XR EYE FOREIGN BODY, 04/12/2024 04/12/2024 Orders Only [facility] Scanner 1 scan: (1-Ord) [facility], HEAD/BRAIN WWO CONTRAST, 04/12/2024 04/12/2024 Orders Only [facility] Scanner 1 scan: (1-Ord) [place], HEAD/BRAIN WO CON, 04/12/2024 04/12/2024 Office Visit [facility] [address] [facility] [address] [facility] [address] [place] [address] Jak Feliz MD Telehealth ([facility]) 04/11/2024 9:00 AM CDT Office Visit [facility] [address] [place] [address] Cisco Reddy MD Consult (Left Knee) 04/11/2024 8:45 AM CDT Ancillary Procedure [facility] [address] [place] [address] 04/11/2024 Travel 04/07/2024 Telephone [facility] [place] [address] [facility] [address] [place] [phone] Cisco Reddy MD Appointment (Need x-rays) 02/25/2024 Telephone [facility] [address] [place] [address] Cornelio Dial MD Referral (colonoscopy ) from [...] of Communication with Friends and Fami ly 0 04/22/2024 Alcohol Use Answer Date Recorded How often do you have a drink containing alcohol ? 1 04/03/2022 How many drinks containing a lcohol do you have on a typical day when you are drinking? 0 04/03/2022 How often do you have five or more drinks on one occasion? 0 04/03/2022 Financial Resource Strain Answer Date R ecorded Difficulty of Paying Living Expenses 3 04/22/2024 Difficulty of Paying Living Expenses Not on file 04/22/2024 Food Insecurity Answer Date Recorded Worried About Running Out of Food in the Last Ye ar 1 04/22/2024 Transportation Needs Answer Date Record ed Lack of Transportation (Medical) 1 04/22/2024 Housing Stability Answer Date Recorded Unable to Pay for Housing in the Last Year 1 04/22/2024 Sex and Gender Information Value Date Recorded Sex Assigned at Not on file Gender Identity Not on file Sexual Orientation Not on file Obstetrics History Last Filed Vital Signs Vital Sign Reading Time Taken Comments Blood Pressure 112/68 05/05/2024 1:23 PM CDT Pulse 73 05/05/2024 1:23 PM CDT Temperature 36.6 ??C (97.9 ??F) 08/02/2022 9:23 AM CD T Respiratory Rate 16 04/03/2022 8:28 AM CDT Oxygen Saturation 95% 05/05/2024 1:23 PM CDT Inhaled Oxygen Concentration - - Weight 76.7 kg (169 lb) 05/05/2024 1:23 PM CDT Height 172.7 cm (5' 8) 05/05/2024 1:23 PM CDT Body Mass Index 25.7 05/05/2024 1:23 PM CDT Plan of Treatment Health Maintenance Due Date Last Done Comments COVID-19 vaccine series ( season) 2023 Influenza for age 65+ 07/27/2024 09/01/2017 , 08/31/2009, 08/31/2009, Additional history exists Depression screening for age 12+ 08/07/2024 08/07/2023, 07/06/2022, 06/15/2021, Additional history exists Medicare Wellness for age 65+ 08/07/2024, 07/06/2022, 06/13/2021, Additional history exists BMI (ht and wt on same day) for age 18+ 05/05/2025 05/05/2024, 08/07/2023, 08/02/2022, Additional history exists Tetanus booster 06/14/2026 06/14/2016, 03/26, 03/02/1997 Tdap Completed 04/10/2008 Hepatitis C screening for ag e 18-79 Completed 07/07/2016 Pneumococcal series for age 65+ Completed 07/07/2016, 07/22/2013, 03/01/1995 Zoster (shingles) series for age 50+ Completed 11/22/2020, 09/13/2020, 11/26/2012 Procedures Procedure Name Priority Date/Time Associated Diagnosis Comments SCAN-EYE EXAM 04/23/2024 12:00 AM CDT ECHO TTE COMPLETE WO CONTRAST Routine 04/12/2024 10:40 AM CDT New onset a-fib (HC) SCAN-CT INTERPRETATION 4 12:00 AM CDT SCAN-CT INTERPRETATION 4 12:00 AM CDT SCAN-RADIOLOGY REPORT 04/12/2024 12:00 AM CDT SCAN-MRI INTERPRETATION 04/12/20 12:00 AM CDT SCAN-CT INTERPRETATION 12:00 AM CDT XR KNEE WB 1 VIEW AP BILATERAL AND 3 VIEWS LEFT Routine 04/11/2024 8:37 AM CDT Arthritis of left knee ANTI HCV Routine 07/07/2016 9:19 AM CDT Need for hepatitis C screening test from Last 3 Months or Most Recently Relevant to Health Maintenance Results * SCAN-EYE EXAM (04/23/2024 12:00 AM CDT) Scanner OTHER * ECHO TTE COMPLETE WO CONTRAST (04/12/2024 10:40 AM CDT) AORTIC VALVE MEAN PG 5 mmHg PEAK TR VELOCITY 2.2 m/s LVEDD 4.0 cm EJECTION FRACTION 60 - 65% Anatomical Region Laterality Modality Ultrasound 04/12/2024 10:1 1 AM CDT Narrative 04/12/2024 11:44 AM CDT ECHOCARDIOGRAM MARTA ALBARADO ?Accession#: ?? [id number] : ?1945 79 years Study Date: ?? 04/12/2024 10:11:01 AM Gender: M ? BP: ? 109/83 mmHg Height: 178.00 cm ? BSA: ?1.94 m? ? ? Weight: 76.00 kg ?Tech: ? MCK ?Referring MD: GAVI LEPE Site: ? [facility] Reading Location: [place] Patient Location: Inpatient. Procedure: 2D, [...] . This study was interpreted by an PSYCHIATRIC accredited facility. CC: HIM (med records) [facility], Med/Surg - IP [facility]. ??Final ?? Procedure Note Dillan Austin MD - 04/12/2024 ECHOCARDIOGRAM MARTA ALBARADO : 1945 79 years Study Date: 04/12/2024 10:11:01 AM Gender: M BP: 109/83 mmHg Height: 178.00 cm BSA: 1.94 m? ? ? Weight: 76.00 kg [place] [facility] Referring MD: GAVI LEPE Site: [facility] Reading Location: [place] Patient Location: Inpatient. Procedure: 2D, [...] . This study was interpreted by an PSYCHIATRIC accredited facility. CC: HIM (med records) [facility], Med/Surg - IP [facility]. Final Gavi Lepe PA ECHO ORD * SCAN-RADIOLOGY REPORT (04/12/2024 12:00 AM CDT) Anatomical Region Laterality Modality Other Scanner OTHER * SCAN-MRI INTERPRETATION (04/12/2024 12:00 AM CDT) Anatomical Region Laterality Modality Other Scanner OTHER * SCAN-CT INTERPRETATION (04/12/2024 12:00 AM CDT) Only the most recent of3 resultswithin the time period is included. Anatomical Region Laterality Modality Other Scanner OTHER * XR KNEE WB 1 VIEW AP [...] left knee Technique: WB AP BILATERAL, LEFT VELASQUEZCRISTI CHEEMA, LATERAL Comparison: 07/09/2019 Procedure Note Dillan Rader [...] Reddy MD GENERAL IMAGING * ANTI HCV [[id number]] (07/07/2016 9:19 AM CDT) HEPATITIS C ANTIBODY Non-Reacti ve Non-Reacti ve 07/07/2016 2:21 PM CDT [facility] Blood BLOOD SPECIMEN / Unknown Venipuncture / Unknown 07/07/2016 9:19 AM CDT 07/07/2016 9:19 AM CDT Narrative [facility] - 07/07/2016 2:21 PM CDT Antibodies to HCV not detected; does not exclude the possibility of exposure to HCV. Cornelio Dial MD SEND OUTS [facility] [address] [place] [address], from Last 3 Months or Most Recently Relevant to Health Maintenance Advance Directives Documents on File Type Date Recorded Patient Full Stack Python Developer Expl anation Healthcare Directive 09/13/2020 020 Care Teams Musical String Maker Relationship Specialty Start Date End Date Cornelio Dial MD [address] [place] [address] PCP - General Family Practice 06/14/16
--- OUTSIDE RECORDS SUMMARY | 2024-05-13 07:24 | XMS_ITS | Data Portability ---
Author Organization [place] [facility] [place] [facility], [facility] Address [address] [facility] [address] [place] [address] Care Team Providers Care Guard Rail Installer Name Role Phone JASIEL GODINEZ Primary Care [...] total, serum or plasma 2023 024 [email or web address] [facility], [address] [place], [address], 04/09/2024 12:45:53 PSA, serum or plasma 2023 024 [email or web address] ro [facility], [address] [place], [address], 04/07/2024 09:48:26 PSA, total, serum or plasma 2022 023 [email or web address] [facility], [address] [place], [address], 05/02/2023 08:41:44 PSA, serum or plasma 2022 023 [facility], [address] [place], [address], 04/25/2023 09:29:11 Referral None record ed. Procedures None record ed. Surgeries None record ed. Imaging None record ed. Medication Orders tamsul osin 0.4 mg capsul e 2022 023 [id number], [address] [place], [place], [phone], 04/25/2023 09:51:22 Patient TargetsNo targets recorded. Patient InstructionsNo instructions recorded. Reason for Referral None Reported. Results Created Date Observation Date Name Description Value Unit Range Abnormal Flag LastModifiedBy Organization Detail LastModifiedTime 04/25/20 23 04/25/2023 PSA, serum or plasm a PSA 8.0 ng/mL 0-4.0 Not Available [facility] [address], [place], [address], 04/25/2023 09:28:57 04/07/20 24 04/07/2024 PSA, serum or plasm a PSA 7.9ng/ ml 0-4.0 NG/mL Not Available [facility] [address], [place], [address], 03/28/2024 15:13:43 05/19/20 21 05/16/2021 measu remen [...] COMPLEX VISIT completed Sergei Harrison MD [address] [facility],[address], [place], [address], [place] [facility] 04/07/2024 18:52:26 4 Bladder Scan completed [place] [facility] 04/07/2024 09:33:14 4 Blood Draw/SHOE SINGER/PSA RESULTS completed [place] [facility] 04/07/2024 09:33:18 3 Blood Draw/SHOE SINGER/PSA RESULTS completed Sergei Harrison MD [address] [facility],[address], [place], [address], [facility] 04/25/2023 09:28:50 Orthopedic Surgery completed Sergei Harrison MD [address] [place] [address],[address], [place], [address], [facility] 04/25/2023 09:27:42 Hernia Repair completed Sergei Harrison MD [address] [place] [address],[address], [place], [address], [facility] 04/25/2023 09:27:48 Remove tonsils and adenoids completed Sergei Harrison MD [address] [place] [address],[address], [place], [address], [facility] 04/25/2023 09:29:46 procedure on nose completed Sergei Harrison MD [address] [place] [address],[address], [place], [address], [facility] 04/25/2023 09:29:52 Imaging Results Imaging Date Name [...] Name and Address Organization Details Recorded Time 786414 erythromy andrea medicatio n Not available Not available Not available 04/25/2023 4053 RxNorm Sergei Harrison MD [address] [facility], [address], [facility] 3 09:24:10 Medications Name Sig Start Date [...] Updated DateTime 04/25/2023 172.72 cm 25.2 kg/m2 31331.33 g Sergei Harrison MD [address] [place] [address] 04/25/2023 09:23:55 Date Recorded Body height Body mass index (BMI) Body weight Provider Name and Address Organization Details Last Updated DateTime 04/07/2024 172.72 cm 25.4 kg/m2 [address]70.[address] [facility] 04/07/2024 09:32:40 Social History Question Answer Notes LastModified by Organizat ion Details LastModified Time Tobacco Smoking Status Never Smoker Sergei Harrison MD [address] [place] [address], [id number] 04/25/2023 09:27:02 What Is Your [...] PPV23 07/22/2013 completed Sergei Harrison MD [address] [place] [address],[address], [address], [facility] 04/25/2023 09:24:03 Pneumococcal conjugate PCV 13 07/07/2016 completed Sergei Harrison MD [address] [place] [address],[address], [address], [facility] 04/25/2023 09:24:03 Past Encounters Encounter ID Performer Location Encounter Start Date Encounter Closed Date Diagnosis/Indication Diagnosis SNOMED-CT Code [id number] MD YOCASTA [facility] [address] [place] [address] 04/25/2023 08:47:25 05/01/2023 14:46:18 Benign prostatic hyperplasia with outflow obstruction 553124544 Prostate s pecific antigen above reference range 411099245 [id number] MD YOCASTA [facility] [address] [place] [address] 04/07/2024 09:20:06 04/08/2024 09:08:54 Benign prostatic hyperplasia with outflow obstruction 755112123 Prostate s pecific antigen above reference range 996842584 Health Concerns Section Related Observation LastModified by Organization Detai ls LastModified Time None Recorded Concern Status LastModified by Organization Details LastModified Time None Recorded Advance Directives Directive None Recorded Payers Encounter Date Sequence Insurance Name Policy Number Policy Avelar Covered Member ID Avelar Member ID Guarantor Name 04/07/2024 1 MEDICARE B: [employer] MEDICARE Michael Albarado [id number] Michael Albarado 04/07/2024 2 [place] [id number] Michael Albarado [id number] Michael Albarado 04/25/2023 1 MEDICARE B: [employer] MEDICARE Michael Albarado [id number] Michael Albarado 04/25/2023 2 [place] [id number] Michael Albarado [id number] Michael Albarado Notes Date Note Type Note [...] no suspicious lesion Sergei Harrison MD [address] [place] [address],[address], [address], [facility] [place] [facility] 04/25/2023 10:09:46 04/07/2024 text/html HPI Notes: [...] - no suspicious lesion Sergei Harrison MD [address] [facility],[address], [place], [address], [facility] [place] [facility] 04/07/2024 18:52:31
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
--- NOTE | 2024-05-13 07:27 | P.IMHP_ITS ---
Hospitalist- H&P: HPI History of Present Illness Date Seen: 05/13/24 Chief complaint: altered mental status Narrative: Michael Albarado is a 79 year old male past medical history significant for hiatal hernia, BPH, status post previous urinary stent which has since been removed, splenic artery aneurysm, GERD, atrial fibrillation on anticoagulation is admitted to the medical floor from the ED for recurrent episode of seizure-like activity. is present at bedside and gives details of event. Patient and both report patient has felt well since discharge from previous hospitalization in March. Has had no further seizure-like events until this morning. Has resumed usual activities including walking 3 miles every morning and working out daily. 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 In the last several days, he reports feeling well. No recent fevers chills sweats. No recent nausea vomiting diarrhea. Last night, went to bed feeling his usual self. Awoke around 3:00 a.m. as he usually does to use the bathroom. Similar to his last event in March, his awoke, this time shortly after 5:00 a.m., to the bed shaking. He appeared to be having a similar seizure-like event. He was unresponsive to her. She called 911. She tells me that the dispatch person for whatever reason, assuming and misunderstanding, advised her to begin CPR. She did begin chest compressions. She tells me he was responding and began and talking to her during this. She tells me this patchy even told her to begin dkvoh-hs-bncch but she did not, telling dispatch that he was breathing. When EMS arrived, patient was reported to be in what was suspected to be a postictal state. Blood sugar was 165. He was able to follow simple commands and by arrival to the ED was minimally speaking. Patient tells me since his last hospitalization he has been seen by Cardiology at [facility] on 05/05/2024. He was advised to continue his diltiazem and Eliquis. A 7 day Zio monitor was placed which the patient turned in just yesterday afternoon, prior to this event. He also had an EEG completed last Sunday and was supposed to have an outpatient neurology appointment yesterday but the clinic had to reschedule him which is now 1 month out. Patient was admitted to this hospital on 04/12/2024 with a similar episode, details available in that note. At that time, concern was for a cardiogenic myoclonus event, in the setting of atrial fibrillation with RVR. Neurology recommendations at that time were to not begin anti seizure medication. During this event this morning, ED provider discussed with [facility], now recommending a loading dose of Keppra which was given in the ED followed by 500 mg b.i.d. dosing to be in this evening with outpatient neurology follow-up. It was recommended that patient did not need repeat imaging this morning care Review of Systems Status of ROS: Reports: 10 or more systems reviewed and unremarkable except as noted in History and below [facility] Medical History (Updated 05/13/24 @ 14:36 by Gavi Huff PA-C) Thrombocytopenia ?D69.6 - Thrombocytopenia, unspecified (ICD-10) Splenic artery aneurysm ?I72.8 - Aneurysm of other specified arteries (ICD-10) Primary osteoarthritis of both knees ?M17.0 - Bilateral primary osteoarthritis of knee (ICD-10) Adenomatous colon polyp ?D12.6 - Benign neoplasm of colon, unspecified (ICD-10) Bronchiectasis ?J47.9 - Bronchiectasis, uncomplicated (ICD-10) Unspecified asthma ?J45.909 - Unspecified asthma, uncomplicated (ICD-10) Esophageal reflux ?K21.9 - Gastro-esophageal reflux disease without esophagitis (ICD-10) Elevated prostate specific antigen (PSA) ?R97.20 - Elevated prostate specific antigen [PSA] (ICD-10) Surgical History History of repair of right rotator cuff ?Z98.890 - Other specified postprocedural states (ICD-10) History of tonsillectomy and adenoidectomy ?Z90.89 - Acquired absence of other organs (ICD-10) History of hernia repair ?Z98.890 - Other specified postprocedural states (ICD-10) ?Z87.19 - Personal history of other diseases of the digestive system (ICD-10) History of colonoscopy ?Z98.890 - Other specified postprocedural states (ICD-10) Social History What is your current living situation?: I presently have a place to live Problems where you live: no known problems Problems where you live details: NA In the past 12 months, utilities in danger of being shut off: no In past 12 months, lack of transportation kept you from medical appts, meetings, work, or getting things needed for daily living: no In the past 12 mos, have been you worried that your food would run out before you had money to buy more?: never true In the past 12 mos, the food you bought just didn't last and you didn't have money to buy more?: never true Highest level of school completed/degree received: Associate degree: occupational, technical, vocational program Smoking Status: Never smoker Do you use any of these nicotine containing products: None Second hand tobacco smoke exposure: No How often do you have a drink containing alcohol: never How often do you have six or more drinks on one occasion: Never AUDIT-C Alcohol total score: 0 Non-prescribed substance use: denies use Caffeine: No How often does anyone, including family, friends and others, physically hurt you : never How often does anyone, including family, friends and others, insult or talk down to you: never How often does anyone, including family, friends and others, threaten you with harm: never How often does anyone, including family, friends and others, scream or curse at you: never service: Yes Meds Home Medications and Allergies Home Medications ?Medication ?Instructions ?Recorded ?Confirmed ?Type antiarthritic combination no.2 900 900 mg PO DAILY 04/12/24 05/13/24 History mg tablet (glucosamine-chondroitin) ascorbic acid (vitamin C) 1,000 mg 1 g PO DAILY 04/12/24 05/13/24 History tablet (C-1000) cholecalciferol (vitamin D3) 125 125 mcg PO DAILY 04/12/24 05/13/24 History mcg (5,000 unit) capsule omeprazole magnesium 20 mg 20 mg PO DAILY 04/12/24 05/13/24 History tablet,delayed release (Prilosec OTC) saw palmetto 450 mg capsule 450 mg PO BID 04/12/24 05/13/24 History tamsulosin 0.4 mg capsule 0.4 mg PO QPM 04/12/24 05/13/24 History vitamin E 670 mg (1,000 unit) 670 mg PO DAILY 04/12/24 05/13/24 History capsule zinc gluconate 50 mg tablet 50 mg PO DAILY 04/12/24 05/13/24 History Allergies Allergy/AdvReac Type Severity Reaction Status Date / Time erythromycin base Allergy laryngospas Verified 04/12/24 06:13 m Exam Narrative: Exam Narrative: PHYSICAL EXAM General: Pleasant, joking with staff, very conversant, NAD HEENT: Normocephalic, atraumatic, sclera white, EOMI, oral mucosa moist Cardiovascular: RRR, S1S2. No pitting edema Pulmonary: CTA bilaterally without rhonchi, rales, expiratory wheezes. No dyspnea on RA Abdominal: Soft, nondistended, NTTP Neurological: Alert, answering questions appropriately, cranial nerves intact, no focal findings Extremities: No gross joint deformity or swelling. AROMI. Neurovascularly intact Skin: Warm, dry. Const: Vital Signs, click to edit/add: Vital Signs - 24 hr 05/13/24 06:31 05/13/24 06:35 05/13/24 06:37 Temperature 97.2 F L Pulse Rate Pulse Rate [Pulse Oximeter] 56 L 61 76 Respiratory Rate 14 14 12 Blood Pressure Blood Pressure [Ri ght Upper Arm] 95/59 L 101/54 L 116/67 Pulse Oximetry 97 96 94 Oxygen Delivery Me thod OxyMask OxyMask Nasal Cannula Oxygen Flow Rate 4 4 4 05/13/24 06:45 05/13/24 06:49 05/13/24 06:51 Temperature Pulse Rate 58 L 61 Pulse Rate [Pulse Oximeter] 61 Respiratory Rate 16 14 Blood Pressure 97/52 L 97/51 L Blood Pressure [Ri ght Upper Arm] 97/52 L Pulse Oximetry 96 97 96 Oxygen Delivery Me thod OxyMask Nasal Cannula Nasal Cannula Oxygen Flow Rate 4 4 4 05/13/24 07:01 05/13/24 07:02 05/13/24 07:12 Temperature Pulse Rate 69 68 67 Pulse Rate [Pulse Oximeter] Respiratory Rate 16 Blood Pressure 101/60 108/56 L Blood Pressure [Ri ght Upper Arm] Pulse Oximetry 97 96 97 Oxygen Delivery Me thod Nasal Cannula Oxygen Flow Rate 4 05/13/24 07:15 Temperature Pulse Rate 65 Pulse Rate [Pulse Oximeter] Respiratory Rate Blood Pressure Blood Pressure [Ri ght Upper Arm] Pulse Oximetry 95 Oxygen Delivery Me thod Oxygen Flow Rate Hospitalist - H&P: Result Labs Labs: Short CBC 05/13/24 Range/Units 06:20 WBC 5.46 (4.50-11.00) K/uL Hgb 13.4 L (13.5-17.5) gm/dL Hct 39.9 (37.0-53.0) % Plt Count 145 (140-440) K/uL BMP 05/13/24 06:20 Sodium 136 Potassium 4.5 Chloride 105 Carbon Dioxide 18 L BUN 16 Creatinine 0.8 Glucose 231 H Calcium 8.8 Cardiac Enzymes 05/13/24 Range/Units 06:20 Troponin I 0.02 (0.01-0.04) ng/mL Liver Function 05/13/24 Range/Units 06:20 Total Bilirubin 0.8 (0.1-1.5) mg/dL AST 18 (12-35) U/L ALT 18 (4-50) U/L Alkaline Phosphatase 94 (40-150) U/L Albumin 4.0 (3.3-5.0) g/dL ECG Attestation: I personally reviewed and interpreted this ECG as follows: ECG interpretation date: 05/13/24 Interpretation: NSR, ventricular rate 74 Assessment and Plan Assessment and plan (1) 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 ED provider discussed with [facility], recommendations included no repeat imaging necessary, start Keppra with loading dose followed by 500mg bid starting this evening. 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 Mild chronic microvascular ischemic changes Start Keppra 500mg bid, first dose this evening. Received 1000mg loading dose in ED Seizure precautions Attempting to obtain EEG from [facility]rology clinic (TERRY signed) Outpatient follow-up with Neurology (will try to get him in sooner than 1 month from now) Status: Acute (2) Atrial fibrillation with rapid ventricular response: Problem comment: Dx 04/12/24 EKG from ED shows NSR Continue diltiazem and apixaban Telemetry Followed by [facility], last visit 05/05/2024, turned in 7 day Zio patch on 05/12/2024 Status: Acute Plan Observation. Likely discharge tomorrow with outpatient Neurology follow-up Total Time Spent Total Time Spent: Total time spent caring for the patient today was 60 minutes. This includes time spent for the visit reviewing the chart, time spent during the visit, time spent after the visit and documentation and planning in coordination of care.
--- NOTE | 2024-05-13 08:45 | ED.NURSE ---
Report given to Santino RN, pt to room CCU1.
[2024-05-13] MEDS: 0.9 % SODIUM CHLORIDE 1000 ml 1,000 ML IV (09:15)
[2024-05-13 09:20] LABS: Appearance Urine Clear (Clear); Bilirubin Urine Negative (Negative); Blood Urine Negative (Negative); Color Urine Yellow (Yellow); Glucose Urine Negative (Negative); Ketones Urine Negative (Negative); Leukocyte Esterase Urine Negative (Negative); Nitrite Urine Negative (Negative); Protein Urine 2+ (Negative); Specific Gravity Urine >= 1.030 (1.000-1.030); Urobilinogen Urine 0.2 (0.2-1.0); pH Urine 5.5 (5.0-8.5)
[2024-05-13 09:33] LABS: Lactate* 1.2 mmol/L (0.5-1.9)
[2024-05-13 09:35] LABS: RBC Urine 0-2 (0-2); WBC Urine 0-2 (0-5)
[2024-05-13] MEDS: 0.9 % SODIUM CHLORIDE 1000 ml 1,000 ML 125 ML IV ×2 (13:13→21:08)
[2024-05-13] MEDS: dilTIAZem 120 MG CAP.ER.24H PO (14:25)
[2024-05-13] MEDS: OMEPRAZOLE 20 MG CAPSULE DR PO (14:25)
[2024-05-13] MEDS: TAMSULOSIN HCL 0.4 MG CAPSULE PO (17:54)
[2024-05-13] MEDS: APIXABAN 5 MG TABLET PO (21:08)
[2024-05-13] MEDS: levETIRAcetam 500 MG TABLET PO (21:08)
[2024-05-13] MEDS: SODIUM CHLORIDE 0.9 % (FLUSH) 10 ML SYRINGE 5 ML IVF (21:09)
--- NOTE | 2024-05-13 22:50 | PC.NURSE ---
Shift Note: Pt friendly and cooperative. Moves well independently with SBA assist. Denies pain, headache, dizziness, or lightheadedness. States he feels completely normal. No indications of seizure activity observed, pt is taking PO Keppra. He had one moderate, normal per pt report BM. Adequate appetite and pt encouraged to continue drinking fluids. Tele= NSR/sinus mauricio. HR observed as low as 49 BPM while pt appeared to be sleeping.
[2024-05-14 00:58] LABS: Squamous Epithelial Cell Urine Few (None-Few); WBC Clumps Urine Few
[2024-05-14 03:00] VITALS: BP 148/75; PULSE 56; RESP 16; TEMP 36.4; O2SAT 94
--- NOTE | 2024-05-14 04:23 | PC.NURSE ---
Addendum entered by Martha Martínez RN 05/14/24 04:33: expelled. This RN used a urojet with another failed attempt. Pt tolerated all adequately with all cares explained including difficult getting past prostate. Pt states A couple years ago they had problems and I had to have things rotator rootered out. ED MD called to see if he did supra pubic catheters-he did not. All of the above notified to Verririon Dr Escoto notified. Orders as noted. Original Note: M/S staff called for assistance with mar. Had tried a straight cath and then a curette. They noted to have a large blood clot thqt w
--- NOTE | 2024-05-14 04:27 | PC.NURSE ---
This RN called for assitnaC
[2024-05-14] MEDS: LORazepam 2 MG/ML inj 0.5 MG IVP (05:59)
--- NOTE | 2024-05-14 06:11 | PC.NURSE ---
Contacted Dr. Escoto who requested surgeons #. Dr. Ryan Nance contacted literary writer stated she and surgical team would not be able to help pt and request transfer for Urology. Updated Dr. Escoto whom stated he agrees with transfer and will start process. JAJA Thomas contacted [facility] center @ [phone], gave Dr. Escoto's cell phone for [facility] to contact directly.
--- NOTE | 2024-05-14 06:12 | P.DS_ITS ---
DS: Providers Provider Time Seen by Provider: 06:14 Date Seen: 05/14/24 Date of admission: 05/13/24 08:39 Primary care physician: Cornelio Dial MD Admitting Clinician: Renae Putnam MD Consults: 05/13/24 09:11 Consult to Occupational Therapy [CONS] Routine Comment: Reason(s) for OT Consult:: Evaluate and Treat Any Restrictions?:: No Restrictions Consult to Physical Therapy [CONS] Routine Comment: Reason(s) for PT Consult:: Evaluate and Treat Any Restrictions?:: No Restrictions Attending Physician on discharge: Renae Putnam MD Date of Discharge: 05/14/24 DS: Diagnosis Discharge Diagnosis (1) Urinary retention: Status: Acute (2) New onset seizure without head trauma: Status: Acute DS: Summary Hospital Course Hospital Course: Michael Albarado is a 79 year old male past medical history significant for hiatal hernia, BPH, status post previous urinary stent which has since been removed, splenic artery aneurysm, GERD, atrial fibrillation on anticoagulation is admitted to the medical floor from the ED on 05/13 for recurrent episode of seizure-like activity. Michael has a significant past medical history of hospitalization on 04/12 for what seemed to be a new onset seizure activity. At that time there was concern for a possible cardiogenic myoclonus event in the setting of atrial fibrillation with RVR and he was not started on antiseizure medication and was scheduled follow-up with neurology, which has not happened due to difficulty being scheduled in the clinic. on the day of admission, he again had another episode of seizure activity which was much like the first 1 a month ago. He was admitted to the hospital after getting a loading dose of IV Keppra in the emergency room and has now been initiated on Keppra 500 mg p.o. twice daily per neurology's recommendation with outpatient neurology follow-up. he does state that he had what sounds to be an EEG last Sunday and is waiting for the results. It sounds like he also had a Holter monitor which he sent into his electrical and instrumentation manager a few days ago as well. Unfortunately, overnight Michael has experienced some urinary retention and was bladder scanned initially for 500 cc of urine. An attempt to straight cath and even place a South catheter was unsuccessful with multiple attempts. With Cardenas discomfort worsening and his inability to urinate, I do believe that he will need to see urology for further evaluation and treatment options. Unfortunately urology is not available at this hospital and at this time Michael will need urgent transfer to a hospital with urology for further evaluation and treatment. At this time Michael will be transferred in stable condition to [facility] to Dr. Alexandra as accepting physician. Status at Discharge Functional status at discharge: independent ambulation Overall status at discharge: patient is not back to baseline Time Spent with Patient Time attestation: Total time spent providing and/or coordinating discharge services: Time spent: Greater than 30 minutes Exam Narrative: Exam Narrative: GENERAL: vital signs reviewed, well developed and nourished HEENT: Extraocular movements are grossly within normal limits. HEART: Regular rate and rhythm with what sounds to be occasional PVC's LUNGS: Clear to auscultation bilaterally with good air movement throughout ABDOMEN: Discomfort due to distended bladder EXTREMITIES: No focal strength deficit is observed SKIN: Observed warm and dry with color normal NEURO: Alert, awake and oriented ?3. Answers all questions appropriately. No focal neuro deficits are noted. PSYCH: Affect normal and anxious Const: Vital Signs, click to edit/add: Vital Signs - 24 hr 05/13/24 06:31 05/13/24 06:35 05/13/24 06:37 Temperature 97.2 F L Pulse Rate Pulse Rate [Left R adial] Pulse Rate [Pulse Oximeter] 56 L 61 76 Respiratory Rate 14 14 12 Blood Pressure Blood Pressure [Le ft Arm] Blood Pressure [Ri ght Upper Arm] 95/59 L 101/54 L 116/67 Pulse Oximetry 97 96 94 Oxygen Delivery Me thod OxyMask OxyMask Nasal Cannula Oxygen Flow Rate 4 4 4 05/13/24 06:45 05/13/24 06:49 05/13/24 06:51 Temperature Pulse Rate 58 L 61 Pulse Rate [Left R adial] Pulse Rate [Pulse Oximeter] 61 Respiratory Rate 16 14 Blood Pressure 97/52 L 97/51 L Blood Pressure [Le ft Arm] Blood Pressure [Ri ght Upper Arm] 97/52 L Pulse Oximetry 96 97 96 Oxygen Delivery Me thod OxyMask Nasal Cannula Nasal Cannula Oxygen Flow Rate 4 4 4 05/13/24 07:01 05/13/24 07:02 05/13/24 07:12 Temperature Pulse Rate 69 68 67 Pulse Rate [Left R adial] Pulse Rate [Pulse Oximeter] Respiratory Rate 16 Blood Pressure 101/60 108/56 L Blood Pressure [Le ft Arm] Blood Pressure [Ri ght Upper Arm] Pulse Oximetry 97 96 97 Oxygen Delivery Me thod Nasal Cannula OxyMask OxyMask Oxygen Flow Rate 4 4 4 05/13/24 07:15 05/13/24 07:21 05/13/24 07:30 Temperature Pulse Rate 65 65 60 Pulse Rate [Left R adial] Pulse Rate [Pulse Oximeter] Respiratory Rate Blood Pressure 104/61 Blood Pressure [Le ft Arm] Blood Pressure [Ri ght Upper Arm] Pulse Oximetry 95 97 95 Oxygen Delivery Me thod OxyMask OxyMask OxyMask Oxygen Flow Rate 4 4 4 05/13/24 07:31 05/13/24 07:32 05/13/24 07:41 Temperature Pulse Rate 60 64 57 L Pulse Rate [Left R adial] Pulse Rate [Pulse Oximeter] Respiratory Rate Blood Pressure 108/57 L 109/58 L Blood Pressure [Le ft Arm] Blood Pressure [Ri ght Upper Arm] Pulse Oximetry 96 96 98 Oxygen Delivery Me thod OxyMask OxyMask OxyMask Oxygen Flow Rate 4 4 4 05/13/24 07:45 05/13/24 07:51 05/13/24 08:00 Temperature Pulse Rate 55 L 59 L 49 L Pulse Rate [Left R adial] Pulse Rate [Pulse Oximeter] Respiratory Rate Blood Pressure 105/60 Blood Pressure [Le ft Arm] Blood Pressure [Ri ght Upper Arm] Pulse Oximetry 97 96 98 Oxygen Delivery Me thod Aerosol Mask OxyMa sk OxyMask OxyMask Oxygen Flow Rate 4 4 4 05/13/24 08:02 05/13/24 08:11 05/13/24 08:15 Temperature Pulse Rate 49 L 58 L 49 L Pulse Rate [Left R adial] Pulse Rate [Pulse Oximeter] Respiratory Rate Blood Pressure 108/58 L 111/62 Blood Pressure [Le ft Arm] Blood Pressure [Ri ght Upper Arm] Pulse Oximetry 98 99 97 Oxygen Delivery Me thod OxyMask OxyMask OxyMask Oxygen Flow Rate 4 4 4 05/13/24 08:22 05/13/24 08:23 05/13/24 08:30 Temperature Pulse Rate 46 L 49 L 54 L Pulse Rate [Left R adial] Pulse Rate [Pulse Oximeter] Respiratory Rate Blood Pressure 98/44 L Blood Pressure [Le ft Arm] Blood Pressure [Ri ght Upper Arm] Pulse Oximetry 99 98 100 Oxygen Delivery Me thod OxyMask OxyMask OxyMask Oxygen Flow Rate 4 4 4 05/13/24 08:30 05/13/24 08:31 05/13/24 08:47 Temperature 97.2 F L Pulse Rate 50 L Pulse Rate [Left R adial] 54 L Pulse Rate [Pulse Oximeter] Respiratory Rate 16 Blood Pressure 109/70 Blood Pressure [Le ft Arm] 119/61 Blood Pressure [Ri ght Upper Arm] Pulse Oximetry 86 L Oxygen Delivery Me thod OxyMask Room Air Oxygen Flow Rate 4 05/13/24 09:00 05/13/24 09:56 05/13/24 10:53 Temperature 97.2 F L 97.4 F L Pulse Rate Pulse Rate [Left R adial] 54 L 57 L Pulse Rate [Pulse Oximeter] Respiratory Rate 16 16 Blood Pressure Blood Pressure [Le ft Arm] 119/61 127/64 Blood Pressure [Ri ght Upper Arm] Pulse Oximetry 98 86 L 96 Oxygen Delivery Me thod Room Air Room Air Room Air Oxygen Flow Rate 05/13/24 15:00 05/13/24 15:00 05/13/24 15:00 Temperature 98 F Pulse Rate 68 Pulse Rate [Left R adial] 54 L 54 L Pulse Rate [Pulse Oximeter] Respiratory Rate 16 16 Blood Pressure Blood Pressure [Le ft Arm] 120/74 Blood Pressure [Ri ght Upper Arm] Pulse Oximetry 96 Oxygen Delivery Me thod Room Air Oxygen Flow Rate 05/13/24 21:12 05/13/24 23:00 05/13/24 23:00 Temperature 98.5 F 97.9 F Pulse Rate 59 L Pulse Rate [Left R adial] 56 L 66 Pulse Rate [Pulse Oximeter] Respiratory Rate 16 16 Blood Pressure Blood Pressure [Le ft Arm] 110/73 133/83 Blood Pressure [Ri ght Upper Arm] Pulse Oximetry 94 94 Oxygen Delivery Me thod Room Air Room Air Oxygen Flow Rate 05/13/24 23:00 05/14/24 03:00 Temperature 97.6 F Pulse Rate Pulse Rate [Left R adial] 66 56 L Pulse Rate [Pulse Oximeter] Respiratory Rate 16 16 Blood Pressure Blood Pressure [Le ft Arm] 148/75 H Blood Pressure [Ri ght Upper Arm] Pulse Oximetry 94 Oxygen Delivery Me thod Room Air Oxygen Flow Rate Documenting provider has reviewed patient's vital signs: yes DS: Data Data Completed and Pending Labs on day of discharge: Labs from last 24 hours 05/13/24 05/13/24 05/13/24 09:23 09:00 06:20 WBC 5.46 RBC 4.29 L Hgb 13.4 L Hct 39.9 MCV 93 MCH 31 MCHC 34 RDW Coeff of Joshua 12.5 Plt Count 145 Neut % (Auto) 63.3 Lymph % (Auto) 27.1 [place] % (Auto) 6.0 Eos % (Auto) 2.0 Baso % (Auto) 0.7 Neut # (Auto) 3.45 Lymph # (Auto) 1.48 [place] # (Auto) 0.30 Eos # (Auto) 0.11 Baso # (Auto) 0.04 Abs Immat Gran (auto) 0.05 Imm/Tot Granulo (auto) 0.9 Sodium 136 Potassium 4.5 Chloride 105 Carbon Dioxide 18 L Anion Gap 13 BUN 16 Creatinine 0.8 Estimated GFR 90 Glucose 231 H Lactate 1.2 6.6 H* Calcium 8.8 Magnesium 2.0 Total Bilirubin 0.8 AST 18 ALT 18 Alkaline Phosphatase 94 Troponin I 0.02 Total Protein 6.3 Albumin 4.0 Urine Color Yellow Urine Appearance Clear Urine pH 5.5 Ur Specific [place] >= 1.030 Urine Protein 2+ A Urine Glucose (UA) Negative Urine Ketones Negative Urine Blood Negative Urine Nitrite Negative Urine Bilirubin Negative Urine Urobilinogen 0.2 Ur Leukocyte Esterase Negative Urine RBC 0-2 Urine WBC 0-2 Urine WBC Clumps Few A Ur Squamous Epith Cells Few Urine Bacteria None Ethyl Alcohol < 0.01 L POC Troponin I 05/13/24 06:18 WBC RBC Hgb Hct MCV MCH MCHC RDW Coeff of Joshua Plt Count Neut % (Auto) Lymph % (Auto) [place] % (Auto) Eos % (Auto) Baso % (Auto) Neut # (Auto) Lymph # (Auto) [place] # (Auto) Eos # (Auto) Baso # (Auto) Abs Immat Gran (auto) Imm/Tot Granulo (auto) Sodium Potassium Chloride Carbon Dioxide Anion Gap BUN Creatinine Estimated GFR Glucose Lactate Calcium Magnesium Total Bilirubin AST ALT Alkaline Phosphatase Troponin I Total Protein Albumin Urine Color Urine Appearance Urine pH Ur Specific [place] Urine Protein Urine Glucose (UA) Urine Ketones Urine Blood Urine Nitrite Urine Bilirubin Urine Urobilinogen Ur Leukocyte Esterase Urine RBC Urine WBC Urine WBC Clumps Ur Squamous Epith Cells Urine Bacteria Ethyl Alcohol POC Troponin I 0.00 L Discharge Plan Discharge Disposition: [facility] Date of Admission: 05/13/24 08:39 Attending Provider on Discharge: Leonid Escoto Primary Care Provider: Cornelio Dial Condition: Stable Discharge Orders: Transfer of Care to Other Hospital (ORDER); Ordered 05/14/24 Ordered By: Leonid Escoto Additional Instructions: NO DRIVING UNTIL REASSESSED BY PCP Oxygen: No Urinary Catheter: No Services not available here: Urology for Placement of a Difficult Urinary Catheter
[2024-05-14] MEDS: OMEPRAZOLE 20 MG CAPSULE DR PO (06:23)
[2024-05-14 06:49] LABS: Hematocrit 42.4 % (37.0-53.0); Hemoglobin* 13.7 gm/dL (13.5-17.5); Mean Corpuscular HGB Conc 32 gm/dL (32-36); Mean Corpuscular Hemoglobin 31 pg (26-34); Mean Corpuscular Volume 96 fL (80-100); Platelet Count* 143 K/uL (140-440); Red Blood Count 4.43 m/uL (4.30-5.90); White Blood Count* 5.94 K/uL (4.50-11.00)
--- NOTE | 2024-05-14 06:49 | PC.NURSE ---
23-07: pleasant and cooperative. no seizure like activity. pt unable to void, bladder scan for >500mL x 2, attempted to straight cath - unable to advance straight catheter, 2nd attempt insertion w/ coude & UroJet, along with assistance from House Sup- unable to insert catheter. with attempts to void, pt now passing blood clots. pt was NOT passing blood clots prior to straight cath attempts. updated, IV fluids d/c'd and IVP Ativan Ordered. working with [employer] to transfer pt.
[2024-05-14 06:55] LABS: Slide Review Reflex No
[2024-05-14 06:57] LABS: Chloride* 107 mmol/L (96-114); Potassium* 4.1 mmol/L (3.6-5.1); Sodium* 141 mmol/L (135-149)
--- NOTE | 2024-05-14 06:58 | PC.NURSE ---
@6179 Dr. Escoto called to say Dr. Pulido from urology is updated on pt transfer. Waiting for [id number] for bed and floor.
[2024-05-14 06:59] LABS: Creatinine* 1.1 mg/dL (0.5-1.5); Est. Creatinine Clearance* 56.22; Estimated Glomerular Filt Rate 68 ml/min
[2024-05-14 07:00] LABS: Anion Gap 8 mEq/L (7-15); Blood Urea Nitrogen* 15 mg/dL (7-30); Calcium* 9.3 mg/dL (8.4-10.6); Carbon Dioxide* 26 mmol/L (20-32); Glucose* 159 mg/dL (60-115)
[2024-05-14] MEDS: lidocaine HCL 2 % JELLY (TOP) STERILE 6 ML UR (07:03)
[2024-05-14 07:20] VITALS: BP 138/65; PULSE 49; PULSE 59; RESP 16; TEMP 36.5; O2SAT 95
[2024-05-14] MEDS: HYDROmorphone 0.5 mg/0.5 ml inj IVP ×2 (08:38→08:47)
[2024-05-14] MEDS: ONDANSETRON 2 MG/ML inj 4 MG IVP (08:38)
--- NOTE | 2024-05-14 09:24 | PM.PROC ---
Procedure Note Date Seen: 05/14/24 Will [facility] bill your pro fee for this procedure?: Yes Pre-op diagnosis: Urinary retention Post-op diagnosis: same Procedure: 1. Unsuccessful attempt at placing urinary catheter. Procedure Description: With the patient's verbal consent under sterile conditions, a straight cath catheter was modified to have the tip to be open. The catheter was inserted through urethra. 0.035 straight tip Glidewire was inserted through the catheter to only have the tip of the wire coming out through the catheter. The catheter was advanced approximately to the level of prostate. When the resistance was met, only gentle pressure was applied but the catheter did not advance. The Glidewire was then removed. We attempted to irrigate this catheter with sterile water and only clots came out around the catheter and through the catheter. After [address] attempts of [address] this catheter with sterile water irrigation, this procedure was aborted to avoid creating a false passage. Patient had discomfort during the procedure but tolerated procedure pretty well. This procedure was attempted after to previous attempts of placing urinary catheter by nursing staff. The only reason this was attempted is because patient was extremely uncomfortable due to urinary retention and urology service was not available at our hospital, and we were having extreme difficulty transferring this patient to higher level of care where Urology is available. Condition: stable Disposition: no change
[2024-05-14] MEDS: levETIRAcetam 500 MG TABLET PO (09:28)
[2024-05-14] MEDS: APIXABAN 5 MG TABLET PO (09:29)
[2024-05-14] MEDS: dilTIAZem 120 MG CAP.ER.24H PO (09:29)
[2024-05-14] MEDS: oxyBUTYnin chloride 5 MG TABLET PO (09:29)
--- NOTE | 2024-05-14 10:18 | PC.NURSE ---
Transfer. pt is alert x4. he is very pleasant and cooperative. he likes to talk about cars. no seizure like activity. pt is still unable to void, bladder scan for 650. MD Nance. came in to try wired guided South. there was blood and one blood clot on attempt to drain bladder. she was not able to drain the bladder. [facility] did accept the pt. and he left @ 0915 by [facility] for [facility].
== END 2024-05-14 09:15 | disposition short-term general hospital (02) ==
LOC: ED 07:30 → MEDSURG 08:40
PROVIDERS: Physician Assistant; Admitting Provider Family Medicine; Emergency Provider Family Medicine; PCP Surgery; Visit Provider Family Medicine
DX: G40.409 Other generalized epilepsy and epileptic syndromes, not intractable, without status epilepticus (principal); R00.1 Bradycardia, unspecified; I48.91 Unspecified atrial fibrillation; R74.02 Elevation of levels of lactic acid dehydrogenase [LDH]; R33.9 Retention of urine, unspecified; R73.09 Other abnormal glucose; R11.0 Nausea; M62.838 Other muscle spasm; K21.9 Gastro-esophageal reflux disease without esophagitis; M17.0 Bilateral primary osteoarthritis of knee; Z79.01 Long term (current) use of anticoagulants; D12.6 Benign neoplasm of colon, unspecified; J45.909 Unspecified asthma, uncomplicated; Z90.89 Acquired absence of other organs; Z87.19 Personal history of other diseases of the digestive system; Z98.890 Other specified postprocedural states
CPT/HCPCS: 36415; 51798; 80048; 80053; 81001; 81003; 82077; 83605; 83735; 84484; 85025; 85027; 93005; 96361; 96365; 96375; 97116; 97161; 97165; 99284; 99285; G0378; A9270; J1170; J1953; J2060; J2405; J7030

== ENCOUNTER 2024-05-14 09:30 | Outpatient (CLI) | payer MEDICARE, BC, SELFPAY ==
--- OUTSIDE RECORDS SUMMARY | 2024-05-17 05:53 | XMS_ITS | Clinical Summary ---
[facility] Address [address] [place] [address] Care Team Providers Care Process Development Chemist Name Role Phone Unassigned, Provider Primary Care Provider Unava ilable Source Comments You are receiving this document as you are listed as the primary care provider,follow-up provider, or the patient has been referred to you for consultation.This is in compliance with the Medicare and[facility] EHR Incentive Program,which states Providers who transition their patient to another setting of careor provider of care or refers their patient to another provider of care shouldprovide summary care record for each transition of care or referral. [employer] Allergies Active Allergy Reactions Criticality Noted Date [...] age to complete this topic Care Teams Process Development Chemist Relationship Specialty Start Date End Date Unassigned, Provider [address] [place] [address] PCP - General 02/01/01
--- OUTSIDE RECORDS SUMMARY | 2024-05-17 05:53 | XMS_ITS | Continuity of Care Document ---
Author Organization [facility], [facility] Address [address] [place] [address] Care Team Providers Care Sausage Stuffer Name Role Phone JASIEL GODINEZ Primary Care Provider [phone] Assessment No assessment recorded. Plan of Treatment Reminders Order Date Submit Date Provider Last Modified By Organization Details Last Modified Time Details Appointments LAB BLOOD DRAW 2023 09:00A [facility] Not available Not available Not available ESTABL ISHED 10 2023 09:20A M Sergei Harrison MD Not available Not available Not available Lab PSA, total, serum or plasma 2023 024 [email or web address] [facility], [address] [place], [address], 04/09/2024 12:45:53 PSA, serum or plasma 2023 024 [email or web address] ro [facility], [address] [place], [address], 04/07/2024 09:48:26 Referral None record ed. Procedures [...] ml 0-4.0 NG/mL Not Available [facility] [address], [place], [address], 03/28/2024 15:13:43 Result Notes None recorded. Procedures Surgical History Date Name Laterality Status Provider Name and Address Organization Details Recorded Time 4 COMPLEX VISIT completed Sergei Harrison MD [address] [place] [address],[address], [place], [address], [facility] 04/07/2024 18:52:26 4 Bladder Scan completed [facility] [facility] 04/07/2024 09:33:14 4 Blood Draw/SALES ENGAGEMENT EXECUTIVE/PSA RESULTS [facility] 09:33:18 3 Blood Draw/SALES ENGAGEMENT EXECUTIVE/PSA RESULTS completed Sergei Harrison MD [address] [place] [address],[address] [place] [address], [address], [facility] 04/25/2023 09:28:50 Orthopedic Surgery completed Sergei Harrison MD [address] [place] [address],[address], [place], [address], [facility] 04/25/2023 09:27:42 Hernia Repair completed Sergei Harrison MD [address] [place] [address],[address], [place], [address], [facility] 04/25/2023 09:27:48 Remove tonsils and adenoids completed Sergei Harrison MD [address] [place] [address],[address], [place], [address], [facility] 04/25/2023 09:29:46 procedure on nose completed Sergei Harrison MD [address] [place] [address],[address], [place], [address], [facility] 04/25/2023 09:29:52 Imaging Results None recorded. Procedure Notes None recorded. Medical Equipment None Reported. Allergies Allergen ID Allergen Name Allergen Category Reaction Reaction Severity Criticality Documentation Date Start Date Code Code System Note Provider Name and Address Organization Details Recorded Time [id number] erythromy andrea medicatio n Not available Not available Not available 04/25/2023 4053 RxNorm Sergei Harrison MD [address] [place] [address],[address] [place] [address], [phone], [facility] 09:24:10 Medications Name Sig Start Date Stop [...] Updated DateTime 04/07/2024 172.72 cm 25.4 kg/m2 30268.93 g Rufus Rogers [facility] 04/07/2024 09:32:40 Social History Question Answer Notes LastModified by Organizat ion Details LastModified Time Tobacco Smoking Status Never Smoker Sergei Harrison MD [address] [place] [address],[address], [place], [address], [facility] 04/25/2023 09:27:02 What Is Your [...] PPV23 07/22/2013 completed Sergei Harrison MD [address] [facility],[address], [address], [facility] 04/25/2023 09:24:03 Pneumococcal conjugate PCV 13 07/07/2016 completed Sergei Harrison MD [address] [facility] [address], [address], [facility] 04/25/2023 09:24:03 Past Encounters Encounter ID Performer Location Encounter Start Date Encounter Closed Date Diagnosis/Indication Diagnosis SNOMED-CT Code [id number] Sergei Harrison MD [facility] [address] [place] [address] 04/07/2024 09:20:06 04/08/2024 09:08:54 Benign prostatic hyperplasia with outflow obstruction [id number] Prostate s pecific antigen above reference range [id number] Health Concerns Section Related Observation LastModified by Organization Detai ls LastModified Time None Recorded Concern Status LastModified by Organization Details LastModified Time None Recorded Payers Encounter Date Sequence Insurance Name Policy Number Policy Avelar Covered Member ID Avelar Member ID Guarantor Name 04/07/2024 1 MEDICARE B: [facility] MEDIC[facility] Michael lAbarado [id number] Michael Albarado 04/07/2024 2 [place] [id number] Michael Albarado [id number] Michael Albarado Notes Date Note Type Note [...] - no suspicious lesion Sergei Harrison MD [address] [place] [address],[address], [place], [address], [facility] [place] [facility] 04/07/2024 18:52:31
--- OUTSIDE RECORDS SUMMARY | 2024-05-17 05:53 | XMS_ITS | Encounter Summary ---
Author Organization [facility] Address [address] [place] [address] Care Team Providers Care Grades 9 Thru 12 Visiting Teacher Name Role Phone Elsewhere, Pcp Primary Care Provider Unavailabl e Reason for Referral * Outpatient (Routine) - Authorized Specialty Diagnoses / Procedures Referred By Kvngac t Referred To Contact Diagnoses Retention Urinary Other Specified Disorders Of Prostate Procedures Enema Prep Remi Lynne M.D., M.P.H. [address] [place] [phone] [facility] Referral ID Status Reason Start Date Expiration Date V isits Requested Visits Authorized [id number] Authorized 05/14/2024 05/14/2025 1 1 * Outpatient (Routine) - Authorized Specialty Diagnoses / Procedures Referred By Contac t Referred To Contact Diagnoses Retention Urinary Other Specified Disorders Of Prostate Procedures URO Uroflow Remi Lynne M.D., M.P.H. [address] [place] [phone] [facility] Referral ID Status Reason Start Date Expiration Date V isits Requested Visits Authorized [id number] Authorized 05/14/2024 05/14/2025 1 1 * Outpatient (Routine) - Authorized Specialty Diagnoses / Procedures Referred By Contac t Referred To Contact Diagnoses Retention Urinary Other Specified Disorders Of Prostate Procedures URO Cystoscopy (general) Remi Lynne M.D., M.P.H. [address] [place] [phone] [facility] Referral ID Status Reason Start Date Expiration Date V isits Requested Visits Authorized [id number] Authorized 05/14/2024 05/14/2025 1 1 * Outpatient (Routine) - Authorized Specialty Diagnoses / Procedures Referred By Contchan t Referred To Contact Diagnoses Retention Urinary Other Specified Disorders Of Prostate Procedures US Prostate Transrectal Remi Lynne M.D., M.P.H. [address] [place] [phone] [facility] Referral ID Status Reason Start Date Expiration Date V isits Requested Visits Authorized [id number] Authorized 05/14/2024 05/14/2025 1 1 * Outpatient (Routine) - Authorized Specialty Diagnoses / Procedures Referred By Contac t Referred To Contact Urology Diagnoses Retention Urinary Remi Lynne M.D., M.P.H. [address] [place] [phone] [facility] Referral ID Status Reason Start Date Expiration Date V isits Requested Visits Authorized [id number] Authorized 05/14/2024 11/13/2025 1 1 Encounter Details Date Type Department Care Team (Late st Contact Info) Description 05/14/2024 Clinical Communication [facility] [address] [place] [phone] Remi Lynne M.D., M.P.H. [address] [place] [phone] Social History Tobacco Use Types Packs/Day Years Used Date Smoking Tobacco: Never Assessed Dental Answer Date Recorded Dental: Regular Dentist Unknown 05/14/20 Sex and Gender Information Value Date Recorded Sex Assigned at Not on file Gender Identity Not on file Sexual Orientation Not on file documented as of this encounter Plan of Treatment Upcoming Encounters Date Type Department Care Team (Late st Contact Info) Description 05/22/2024 8:45 AM CDT Procedure visit Department of Urology in [place], [place] [address] [place] [address] Remi Lynne M.D., M.P.H. [address] [place] [phone] 05/22/2024 11:30 AM CDT Clinical Support Enema Prep Facility in [place], [place] [address] [place] [phone] Remi Lynne M.D., M.P.H. [address] [place] [phone] 05/22/2024 12:20 PM CDT Appointment Department of Laboratory Medicine and Pathology, [place], [place] [address] [place] [phone] Remi Lynne M.D., M.P.H. [address] [place] [phone] 05/22/2024 12:30 PM CDT Appointment Department of Laboratory Medicine and Pathology, [place], [place] [address] [place] [phone] Remi Lynne M.D., M.P.H. [address] [place] [phone] 05/22/2024 1:30 PM CDT Appointment Department of Radiology, [facility], [place] [address] [place] [address] Remi Lynne M.D., M.P.H. [address] [place] [address] 05/27/2024 8:00 AM CDT Comprehensive Visit Department of Urology in [place], [place] [address] [place] [address] Eligio Palomino M.D., M.P.H. [address] [place] [address] 05/27/2024 10:45 AM CDT Procedure visit Department of Urology in [place], [place] [address] [place] [address] Terry Mooney M.D. 800 [place] [address] Scheduled Orders Name Type Priority Associated Diagnoses Order Schedule US Prostate Transrectal Imaging RAD - Routine (most inpatients and all outpatients) Retention Urinary Other Specified Disorders Of Prostate Expected: 05/14/2024, Expires: 08/14/2025 PSA (Prostate-Specific Antigen), Diagnostic Lab Routine Retention Urinary Expected: 05/14/2024, Expires: 08/14/2025 URO Uroflow Procedure Routine Retention Urinary Other Specified Disorders Of Prostate Expected: 05/22/2024, Expires: 08/14/2025 Urinalysis, with Microscopic: Urine, Midstream Lab Routine Retention Urinary Other Specified Disorders Of Prostate Expected: 05/22/2024, Expires: 08/14/2025 Enema Prep Procedures Routine Retention Urinary Other Specified Disorders Of Prostate Expected: 05/22/2024, Expires: 08/14/2025 Scheduled Referrals Name Type Priority Associated Diagnoses Orde r Schedule Urology - General - urinary retention consult (clinic) Outpatient Referral Routine Retention Urinary Expected: 05/14/2024, Expires: 08/14/2025 documented as of this encounter Visit Diagnoses Diagnosis Retention Urinary- Primary Other Specified Disorders Of Prostate documented in this encounter Care Teams Grades 9 Thru 12 Visiting Teacher Relationship Specialty Start Date End Date Elsewhere, Pcp PCP - General Internal Medicine 05/14/24 documented as of this encounter
--- OUTSIDE RECORDS SUMMARY | 2024-05-17 05:53 | XMS_ITS | Encounter Summary ---
Author Organization [facility] Address [address] [place] [address] Care Team Providers Care Circulation Manager Name Role Phone Elsewhere, Pcp Primary Care Provider Unavailabl e Encounter Details Date Type Department Care Team (Late st Contact Info) Description 05/14/2024 Documentation Department of Urology in [place], [place] [address] [place] [address] Beth Bentley M.D. [address] [place] [address] Social History Tobacco Use Types Packs/Day Years Used Date Smoking Tobacco: Never Assessed Dental Answer Date Recorded Dental: Regular Dentist Unknown 05/14/20 24 Sex and Gender Information Value Date Recorded Sex Assigned at Not on file Gender Identity Not on file Sexual Orientation Not on file documented as of this encounter Progress Notes * Beth Bentley M.D. - 05/14/2024 8:39 AM CDT PHONE CONVERSATION: - patient admitted to an outside hospitalist service due to seizures or seizure like activity (thiswas his second episode) and he was started on Keppra. He was voiding spontaneously yesterday but now is in urinary retention, symptomatic, uncomfortable and getting nauseated. They have tried mar catheters, coude tip catheters, and have asked their ER doctors and general surgeons to put in a suprapubic tube but they do not have this capability. They do not have interventional radiology. - At this point, this patient needs urgent decompression of his bladder either via cystoscopy catheter placement or suprapubic tube placement - he should not come to a primary urology service for this issue that has developed in his admission but I would recommend asking the MOD or neurology to see if they can assume this patient (we are on diversion, so this may not be possible) at which point urology can either place a urethra or suprapubic catheter. documented in this encounter Plan of Treatment Upcoming Encounters Date Type Department Care Team (Late st Contact Info) Description 05/22/2024 8:45 AM CDT Procedure visit Department of Urology in [place], [place] [address] [place] [address] Remi Lynne M.D., M.P.H. [address] [place] [phone] 05/22/2024 11:30 AM CDT Clinical Support Enema Prep Facility in [place], [place] [address] [place] [phone] Remi Lynne M.D., M.P.H. [address] [place] [phone] 05/22/2024 12:20 PM CDT Appointment Department of Laboratory Medicine and Pathology, [place], [place] [address] [place] [phone] Remi Lynne M.D., M.P.H. [address] [place] [phone] 05/22/2024 12:30 PM CDT Appointment Department of Laboratory Medicine and Pathology, [facility] in [place], [place] [address] [place] [phone] Remi Lynne M.D., M.P.H. [address] [place] [phone] 05/22/2024 1:30 PM CDT Appointment Department of Radiology, [facility], in [place], [place] [address] [place] [address] Remi Lynne M.D., M.P.H. [address] [place] [phone] 05/27/2024 8:00 AM CDT Comprehensive Visit Department of Urology in [place], [place] [address] [place] [address] Eligio Palomino M.D., M.P.H. [address] [place] [phone] 05/27/2024 10:45 AM CDT Procedure visit Department of Urology in [place], [place] [address] [place] [address] Terry Mooney M.D. 800 [place] [phone] documented as of this encounter Visit Diagnoses Not on filedocumented in this encounter Care Teams Circulation Manager Relationship Specialty Start Date End Date Elsewhere, Pcp PCP - General Internal Medicine 05/14/24 documented as of this encounter
--- OUTSIDE RECORDS SUMMARY | 2024-05-17 05:53 | XMS_ITS | Encounter Summary ---
Author Organization [facility] Address [address] [place] [address] Care Team Providers Care Art Objects Repairer Name Role Phone Elsewhere, Pcp Primary Care Provider Unavailabl e Encounter Details Date Type Department Care Team (Latest Contact Info) Description 05/14/2024 Intake [facility] Social History Tobacco Use Types Packs/Day Years [...] CDT Procedure visit Department of Urology in [place], [place] [address] [place] [address] Remi Lynne M.D., M.P.H. [address] [place] [phone] 05/22/2024 11:30 AM CDT Clinical Support Enema Prep Facility in [place], [place] [address] [place] [address] Remi Lynne M.D., M.P.H. [address] [place] [phone] 05/22/2024 12:20 PM CDT Appointment Department of Laboratory Medicine and Pathology, [facility], in [place], [place] [address] [place] [phone] Remi Lynne M.D., M.P.H. [address] [place] [address] 05/22/2024 12:30 PM CDT Appointment Department of Laboratory Medicine and Pathology, [facility] in [place], [place] [address] [place] [address] Remi Lynne M.D., M.P.H. [address] [place] [phone] 05/22/2024 1:30 PM CDT Appointment Department of Radiology, [facility] in [place], [place] [address] [place] [address] Remi Lynne M.D., M.P.H. [address] [place] [phone] 05/27/2024 8:00 AM CDT Comprehensive Visit Department of Urology in [place], [place] [address] [place] [address] Eligio Palomino M.D., M.P.H. [address] [place] [phone] 05/27/2024 10:45 AM CDT Procedure visit Department of Urology in [place], [place] [address] [place] [phone] Terry Mooney M.D. [address] [place] [address] documented as of this encounter Visit Diagnoses Not on filedocumented in this encounter Care Teams Art Objects Repairer Relationship Specialty Start Date End Date Elsewhere, Pcp PCP - General Internal Medicine 05/14/24 documented as of this encounter
--- OUTSIDE RECORDS SUMMARY | 2024-05-17 05:53 | XMS_ITS | Clinical Summary ---
Author Organization [facility] Address [place], [place] [address] Care Team Providers Care Plastic Jig And Fixture Builder Name Role Phone Cornelio Dial MD Primary Care Provider [phone] Allergies Active Allergy Reactions Criticality Noted Date [...] medication order composer Take by mouth. Saw Peach Bottom 450 mg Whole Herb, take 1 tablet [...] mouth once daily. 04/13/2024 Active glucos sul [id number]-Mn (Glucosamine Chondroitin) 550-30-1 mg cap Take 1 [...] Encounters Date Type Department Care Team Description 05/14/2024 Orders Only [facility] Scanner 1 scan: (1-Ord) [facility], UNSUCCESSFUL ATTEMPT AT PLACING URINARY CATHETER, 05/14/2024 05/12/[address] [place] [address] Rodolfo Albarado MD Questions 05/11/2024 11:59 PM CDT Hospital Encounter [facility] [address] [place] [address] [facility] 05/05/2024 2:00 PM CDT Office Visit [address] [place] [address] Rodolfo Albarado MD Consult (Per PCP, afib, EKG tracings under scans) 05/05/2024 Travel 04/23/2024 Orders Only [facility] Scanner 1 scan: (1-Ord) [facility] 04/22/2024 11:45 AM CDT Office Visit [facility] [address] [place] [address] Cornelio Dial MD Post-op 04/22/2024 Telephone [facility] [address] [place] [address] Cornelio Dial MD Testing (EEG) 04/22/2024 Travel 04/17/2024 Nurse Triage [facility] [address] [place] [address] Cornelio Dial MD Back Pain 04/15/2024 Nurse Triage [facility] [address] [place] [address] Cornelio Dial MD Musculoskeletal Problem 04/12/2024 10:00 AM CDT Ancillary Procedure [facility] [address] [place] [address] 04/12/2024 Orders Only [facility] Scanner 1 scan: (1-Ord) [place], ABDOMEN PELVIS W/CON, 04/12/2024 04/12/2024 Orders Only [facility] Scanner 1 scan: (1-Ord) [facility], ANGIO CHEST PE PROTOCOL, 04/12/2024 04/12/2024 Orders Only [facility] Scanner 1 scan: (1-Ord) [place], XR EYE FOREIGN BODY, 04/12/2024 04/12/2024 Orders Only [facility] Scanner 1 scan: (1-Ord) [facility], HEAD/BRAIN WWO CONTRAST, 04/12/2024 04/12/2024 Orders Only [facility] Scanner 1 scan: (1-Ord) [place], HEAD/BRAIN WO CON, 04/12/2024 04/12/2024 Office Visit [facility] [address] [facility] [address] [place] [address] Jak Feliz MD Telehealth ([facility]) 04/11/2024 9:00 AM CDT Office Visit [facility] [address] [place] [address] Cisco Reddy MD Consult (Left Knee) 04/11/2024 8:45 AM CDT Ancillary Procedure [facility] [address] [place] [address] 04/11/2024 Travel 04/07/2024 Telephone [facility] [address] [place] [phone] Cisco Reddy MD Appointment (Need x-rays) 02/25/2024 Telephone [facility] [address] [place] [address] Cornelio Dial MD Referral (colonoscopy ) from [...] 05/05/2024 1:23 PM CDT Plan of Treatment Upcoming Encounters Date Type Department Care Team (Late st Contact Info) Description 05/19/2024 9:30 AM CDT Office Visit [facility] [address] [place] [address] Kelly Mcbride PA [address] [place] [address] 07/07/2024 8:40 AM CDT Office Visit [facility] [address] [place] [address] Earl Johnson MD [address] [place] [address] Health Maintenance Due Date Last Done Comments [...] Procedure Name Priority Date/Time Associated Diagnosis Comments SCAN-OPERATIVE/PROCEDUR E REPORT 05/14/2024 12:00 AM CDT SCAN-EYE EXAM 04/23/2024 12:00 AM CDT ECHO TTE COMPLETE WO CONTRAST Routine 04/12/2024 10:40 AM CDT New onset a-fib (HC) SCAN-CT INTERPRETATION 4 12:00 AM CDT SCAN-CT INTERPRETATION 4 12:00 AM CDT SCAN-RADIOLOGY REPORT 04/12/2024 12:00 AM CDT SCAN-MRI INTERPRETATION 04/12/20 24 12:00 AM CDT SCAN-CT INTERPRETATION 4 12:00 AM CDT XR KNEE WB 1 VIEW AP BILATERAL AND 3 VIEWS LEFT Routine 04/11/2024 8:37 AM CDT Arthritis of left knee ANTI HCV Routine 07/07/2016 9:19 AM CDT Need for hepatitis C screening test from Last 3 Months or Most Recently Relevant to Health Maintenance Results * SCAN-OPERATIVE/PROCEDURE REPORT (05/14/2024 12:00 AM CDT) Scanner OTHER * SCAN-EYE EXAM (04/23/2024 12:00 AM CDT) Scanner OTHER * ECHO TTE COMPLETE WO CONTRAST (04/12/2024 10:40 AM CDT) AORTIC VALVE MEAN PG 5 mmHg PEAK TR VELOCITY 2.2 m/s LVEDD 4.0 cm EJECTION FRACTION 60 - 65% Anatomical Region Laterality Modality Ultrasound 04/12/2024 10:1 1 AM CDT Narrative 04/12/2024 11:44 AM CDT ECHOCARDIOGRAM MARTA ALBARADO ?Accession#: ?? [id number] : ?1945 79 years Study Date: ?? 04/12/2024 10:11:01 AM Gender: M ? BP: ? 109/83 mmHg Height: 178.00 cm ? BSA: ?1.94 m? ? ? Weight: 76.00 kg ?Tech: ? MCK ?Referring MD: STEVE LEPE Site: ? [facility] Reading Location: [facility] Patient Location: Inpatient. Procedure: 2D, Color Doppler [...] . This study was interpreted by an [facility] accredited facility. CC: HIM (med records) [facility], Med/Surg - IP [facility]. ??Final ?? Procedure Note Dillan Austin MD - 04/12/2024 ECHOCARDIOGRAM MARTA ALBARADO : 1945 79 years Study Date: 04/12/2024 10:11:01 AM Gender: M BP: 109/83 mmHg Height: 178.00 cm BSA: 1.94 m? ? ? Weight: 76.00 kg Tech: ZAKIYA Referring MD: STEVE LEPE Site: [facility] Reading Location: [facility] Patient Location: Inpatient. Procedure: 2D, [...] interpreted by an [facility] accredited facility. CC: HIM (med records) [facility], Med/Surg - IP [facility]. Final Steve KING ECHO ORD * SCAN-RADIOLOGY REPORT (04/12/2024 12:00 [...] Reddy MD GENERAL IMAGING * ANTI HCV [[id number]] (07/07/2016 9:19 AM CDT) HEPATITIS C ANTIBODY Non-Reacti ve Non-Reacti ve 07/07/2016 2:21 PM CDT [facility] Blood BLOOD SPECIMEN / Unknown Venipuncture / Unknown 07/07/2016 9:19 AM CDT 07/07/2016 9:19 AM CDT Narrative [facility] - 07/07/2016 2:21 PM CDT Antibodies to HCV not detected; does not exclude the possibility of exposure to HCV. Cornelio Dial MD SEND OUTS [facility] [address] [place] [address], from Last 3 Months or Most Recently Relevant to Health Maintenance Advance Directives Documents on File Type Date Recorded Patient Patrol Man Expl anation Healthcare Directive 09/13/2020 020 Care Teams Plastic Jig And Fixture Builder Relationship Specialty Start Date End Date Cornelio Dial MD [address] [place] [address] PCP - General Family Practice 06/14/16
--- OUTSIDE RECORDS SUMMARY | 2024-05-17 05:53 | XMS_ITS | Encounter Summary ---
Author Organization [facility] Address [address] [place] [id number] Care Team Providers Care Tool And Die Designer Name Role Phone Elsewhere, Pcp Primary Care Provider Unavailabl e Reason for Visit * Reason Comments Urinary Problem Catheter problem Encounter Details Date Type Department Care Team (Late st Contact Info) Description 05/14/2024 10:49 AM CDT - 05/14/2024 5:10 PM CDT Emergency [facility] Emergency Department [address] [place] [phone] Tiffanie Soto M.D. [address] [place] [phone] Ofe Patricia P.A.-C. [address] [place] [address] [phone] Retention Urinary (Primary Dx) Discharge Disposition: Home or Self Care Social History Tobacco Use Types Packs/Day Years Used Date Smoking Tobacco: Never Assessed Dental Answer Date Recorded Dental: Regular Dentist Unknown 05/14/20 Sex and Gender Information Value Date Recorded Sex Assigned at Not on file Gender Identity Not on file Sexual Orientation Not on file documented as of this encounter Last Filed Vital Signs Vital Sign Reading Time Taken Comments Blood Pressure 121/67 05/14/2024 1:30 PM CDT Pulse 53 05/14/2024 3:30 PM CDT Temperature - - Respiratory Rate 18 05/14/2024 1:30 PM CDT Oxygen Saturation 98% 05/14/2024 3:30 PM CDT Inhaled Oxygen Concentration - - Weight - - Height - - Body Mass Index - - documented in this encounter Discharge Summaries * Ofe Patricia P.A.-C. - 05/14/2024 4:17 PM CDT Emergency Department Discharge Note BRIEF OVERVIEW Admission Date: 05/14/2024 Discharge Date: 05/14/2024 Primary Discharge Diagnosis Final diagnoses: [R33.9] Retention Urinary Discharge Disposition Michael is being discharged to home with family Outpatient Follow-Up Related to this Admission Follow up with a [facility] provider: Clinic to decide Test Results Pending at Discharge Pending Labs None Patient education Discharge instructions given. All questions answered to the best of my ability Condition at Discharge Stable DETAILS OF OBSERVATION STAY Observation Course Creatinine improved. Urology outpatient appointments scheduled. Antibiotics sent to pharmacy per urology recs. Ofe Patricia P.A.-C. 05/14/24 1618 documented in this encounter Discharge Instructions * Discharge Instructions* Ofe Patricia P.A.-C. - 05/14/2024 12:41 PM CDT Take a copy of this After Visit Summary to your appointment. [place], [place] Sunday, May 19, 2024 --9:30am report time- Emergency Department Follow-Up with CHRISTINE Junior, at [facility] RECOMMENDATIONS: * Repeat BMP [facility] You may have outpatient appointments at [facility] that changed during your hospitalization. Referto your [facility] Patient Visit Guide (PVG) for the most current schedule of appointments and detailed instructions of tests/procedures. Call [phone], if you did not receive an PVG or need to CANCEL any [facility] appointment(s). * Attachments The following attachments cannot be sent through Care Everywhere. * Acute Urinary Retention Male (Comoran) documented in this encounter Medications at Time of Discharge Medication Sig Dispensed Refills Start Date End Date cefdinir (Omnicef) 300 mg capsule Take 1 capsule (300 mg total) by mouth 2 (two) times a day before breakfast and dinner for 3 days. 6 capsule 05/14/2024 05/17/2024 DME Urological suppliesIndications: Retention Urinary DME Order 1 Unspecified 05/14/2024 tamsulosin (FLOMAX) 0.4 mg 24 hr capsule Take 1 capsule by mouth daily. 08/07/2023 documented as of this encounter Progress Notes * Remi Lynne M.D., M.P.H. - 05/14/2024 2:44 PM CDT As the [place] provider I received a request from ED to help facilitate outpatient follow-up givenconcern for urinary retention and a new Mar catheter placement. Patient had some mild ZAFAR. A PCP appointment in [place] has been requested will also check a creatinine/BMP. A urology appointment has been requested locally as patient did follow up with Urology before. This appointment was scheduled for July 07. As this is 7-8 weeks out per patient request we will also request a appointment with [facility]. Patient voiced understanding of this. This is communicated with the ED team. documented in this encounter H&P Notes * Tiffanie Sawant M.D. - 05/14/2024 1:33 PM CDT Emergency Department Observation H&P SUBJECTIVE CHIEF COMPLAINT/ REASON FOR VISIT The patient's chief complaint includes: Urinary Problem (Catheter problem) HISTORY OF PRESENT ILLNESS Mr. Albarado is a 79 y.o. male who presents with urinary obstruction. Refer to the Emergency DepartmentHistory & Physical for further documentation in support of observation status. OBJECTIVE VITAL SIGNS Heart Rate: 55 Resp Rate: 17 Blood Pressure: 116/67 SpO2: 99 % Flow Rate (L/min): 2 L/min DIAGNOSTICS I have reviewed laboratory, imaging, and other diagnostic studies. Clinically significant abnormal findings are as noted in the chart and emergency department note. ASSESSMENT / PLAN Michael will need additional care based on his work up and will be admitted as ED observation. OBSERVATION TREATMENT PLAN: Bladder irrigation Tiffanie Sawant M.D. Resident 05/14/24 1333 documented in this encounter Consult Notes * Camryn Hamilton M.D. - 05/14/2024 3:47 PM CDTAssociated Order(s): IP CONSULT TO UROLOGY UROLOGY CONSULT NOTE REASON FOR CONSULT urinary retention HISTORY OF PRESENT ILLNESS Mr. Albarado is a pleasant 79 y.o. male for whom we are consulted for the management of the above. Our team was contacted by an outside hospitalized via ATC. He was hospitalized locally with seizure-likeactivity and was started on Keppra. He was voiding spontaneously yesterday, 05/13/2024 but went intoacute urinary retention this morning. Patient became uncomfortable and developed nausea this morning. They tried several catheters including Mar catheters, coude-tip catheters. They were not able to get any catheter or suprapubic catheter in. Given the patient needed urgent decompression of his bladder, he was transferred here for further management Emergency department, he is afebrile, hemodynamically stable. He has suprapubic fullness but no suprapubic tenderness. Bladder scan revealed approximately 650 cc in the bladder. Patient has history of stones treated with lithotripsy about 20 years ago. He does take Flomax for BPH but otherwise feels he urinates well at home. Feels he empties his bladder well. Nocturia x1-2. No history of gross hematuria. No history of urinary tract infections. Past medical history: AFib on apixaban SURGICAL HISTORY No prior abdominal or pelvic surgery History reviewed. No pertinent surgical history. SOCIAL HISTORY Lives in [place] OBJECTIVE BP 121/67 Pulse (!) 53 Resp 18 SpO2 98% General: Lying in bed, comfortable appearing Eyes: Sclera nonicteric Skin: Not jaundiced Chest: Nonlabored breathing on room air Abdomen: Soft, nondistended, no flank pain. : Suprapubic tenderness Neurologic: Interacting, mentating well Psychiatric: Appropriate mood and affect Extremities: no extremity edema noted. Labs: Hemoglobin 12.8 White count 7.5 Creatinine 1.66 (baseline 0.92) Imaging: I reviewed CT abdomen pelvis from 04/12/2024 which demonstrates prostatomegaly, I would estimate greater than [address] cc based [address] CT scan. I do not note any other abnormalities. No hydronephrosis. No stones Micro: None ASSESSMENT / PLAN Mr. Albarado is a pleasant 79 y.o. male with urinary retention. Procedure: The patient was draped with sterile OR towels and prepped with Betadine. I noted blood at the urethral meatus. A flexible cystoscope was inserted per urethra. Anterior urethra unremarkable. Blood clots visualized in the prostatic urethra, prostate appeared enlarged, bilobar hyperplasia. Bladder where seen unremarkable. A 0.035 sensor wire was advanced through the flexible cystoscope and into the bladder. The flexible cystoscope was offloaded. A 20 Trinid[place] Koi tip catheter was loaded over thewire and the wire was removed with return of maroon colored urine. 10 cc sterile water in the balloon. I irrigated with 1.5 L sterile saline, approximately 30 cc clot return. With catheter on tensionand following irrigation urine cleared to light swenson. Plan -maintain Mar catheter, ensure patient continues to take his home Flomax -please cover the patient with Bactrim or cefdinir for 3 days given manipulation -patient has a local urologist, he and favor returning there rather than coming here which is reasonable. I recommended he follow up with that urologist for voiding trial. I recommended he wait at least 3 days prior to voiding trial given episode of retention -no gross hematuria workup indicated given traumatic nature of the hematuria, unless the hematuria redevelops after several weeks -ok to DC with catheter from our perspective as long as catheter remains clear pink/peach. can haveurology techs teach family irrigation as well. I saw and evaluated the patient with the teaching physician Dr.Vidit Bentley. They were present during the perales portions of the service and reviewed and agreed with my documentation. The above was discussed with Dr. Bran, the chief urology resident customer records division supervisor. Please page [place] Urology [place] [phone] [place] [phone] after hours. Electronically signed by: Camryn Hamilton M.D. 05/14/24 3:47 PM CDT Associated attestation - Beth Bentley M.D. - 05/15/2024 10:46 AM CDT I saw and evaluated the patient, participating in the perales portions of the service. I reviewed the resident/fellow's note. I agree with the resident/fellow's findings and plan. I personally spent over half of a total 20 minutes in counseling and discussion with the patient and coordination of care as described above. documented in this encounter ED Notes * Tiffanie Soto M.D. - 05/14/2024 10:54 AM CDT I have personally seen and examined this patient. I have fully participated in the care of this patient. I have reviewed all clinical information including history, physical exam, orders, and plan. Iagree with the note of the resident. Admission H&P Note. I have reviewed and agree with the resident's note addendum. This is a 79 y.o. male patient with a PMH notable for urinary retention, a fib (on apixaban) who presents for evaluation of urinary retention. Was admitted yesterday at [facility] for seizure with possible cardiac arrest (per , first responders noted that he did have a pulse). Was having difficulty with urination. Was given dilaudid in ER there for abdominal pain, was [facility] with distention in the abdomen. Attempted mar placement without success, did place a straight cath with some blood in the urethra but didn't drain much. Sent here for possible suprapubic catheter (local surgeons don't do that). Patient resting comfortably in bed en route. Notable Exam Findings: Vitals: 05/14/24 1145 BP: (!) 106/53 Pulse: 65 Resp: 17 SpO2: 93% Resting comfortably in room, answering questions. Breathing comfortably on room air. Initially withdistended abdomen. Later with mar in place draining pink urine. Impression/Plan: History and exam most concerning for urinary obstruction, could be from BPH. Also considered other things going on - seizures, cardiac arrest given report from outside hospitalization. Will work on getting records to further clarify what happened. Will obtain basic labs, will talk with ED cath teamand urology. Anticipate admission as he was inpatient previously. ED Course as of 05/14/24 1547 SunMay 14, 2024 1113 Hemoglobin(!): 12.8 Slightly low, neutrophilia, lymphopenia. Will need records from [place] for comparison. 1142 Working on outside records (Care Everywhere) 1142 Creatinine(!): 1.66 Elevated, likely obstructive nephropathy. BMP otherwise normal. 1142 Urology in the room decompressing bladder with a scope now. 1147 Catheter in via scope, had blood initial but clearing. Irrigated. Request cath techs to come for leg strap on tension, no CBI just hand irrigation. Ceftriaxone ordered. 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 Yesterday started on keppra. No preceding hematuria with obstructing clots. Hadn't given lots of benzos or opioids. They felt that he could have been discharged from a seizure standpoint. Wondering about irrigation here, follow up with [place] versus here. [facility] how to get him home and how to follow up. 1211 Was able to find paper records, lactate was 6 and improved to normal. Creat was previously normal. Spoke with patient and , they would be agreeable with discharge. They have AEM, decline youth nutritional monitor. Can f/u with [place]rology. CTA working on copying paper records. Okay with monitoring here for a few hours. 1214 Spoke with urology - okay with a couple of hours of irrigation Q1-2, repeat BMP. Goal like peach/light swenson. Have cath techs teach them irrigation at home. Recommends catheter being in at least 3 days, get set up for void trial at some point. Recommend 3 days antibiotics of cefdinir or bactrim. 1229 Spoke with RN, supervisor propellant charge loading and C2 team about sending the patient to obs for irrigation. Plan fordischarge home in a few hours after repeat BMP, will need antibiotics. 1242 [place] set up outpatient follow up. 1449 [place] set up outpatient urology appointment. Final Diagnoses: as of 05/14/24 1547 Retention Urinary Tiffanie Soto M.D. 05/14/24 1548 Tiffanie Soto M.D. 05/14/24 1601 * Tiffanie Sawant M.D. - 05/14/2024 10:54 AM CDT SUBJECTIVE CHIEF COMPLAINT/REASON FOR VISIT Urinary Problem (Catheter problem) HISTORY OF PRESENT ILLNESS This is a 79-year-old male who was recently in the hospital for seizure disorder at [place]. While there he had a full workup done and was ready to be discharged today except for he now is unable to void. They were unable to catheterize him at the hospital and he was transferred to the emergency department for urology evaluation. Currently, the patient reports that he was still not been able to urinate REVIEW OF SYSTEMS See HPI. OBJECTIVE Initial Vitals [05/14/24 1055] Temp Pulse Rate (!) 45 Heart Rate (!) 59 Resp Rate 22 Blood Pressure 125/59 SpO2 93 % Pain Score PHYSICAL EXAMINATION Constitutional: Nursing note and vitals reviewed. He appears not lethargic. No distress. HENT: Head: Atraumatic. No signs of injury. Nose: Nose normal. No nasal discharge. Mouth/Throat: Oropharynx is clear and moist. Mucous membranes are moist. Eyes: Conjunctivae are normal. Right eye exhibits no discharge. Left eye exhibits no discharge. Neck: No JVD present. No tracheal deviation present. Cardiovascular: Normal rate and regular rhythm. Exam reveals no gallop and no friction rub. No murmur heard.Capillary refill: takes less than 3 seconds Pulmonary/Chest: Effort normal and breath sounds normal. No tachypnea. No respiratory distress. He has no wheezes. He has no rhonchi. He has no rales. Abdominal: Soft. exhibits distension (Suprapubic).There is no abdominal tenderness. There is no guarding. Musculoskeletal: General: No tenderness, deformity or edema. Normal range of motion. Cervical back: Normal range of motion. Neurological: Alert and oriented to person, place, and time. He exhibits normal muscle tone. Skin: Skin is warm. No rash noted. He is not diaphoretic. No jaundice. Psychiatric: He has a normal mood and affect. Behavior is normal. Judgment and thought content normal. ASSESSMENT/PLAN In summary this is a 79-year-old male who has coming in the emergency department today for urinary retention. Differential diagnosis includes but isn't limited to benign prostatic hyperplasia, clot obstructingthe urinary flow tract, other reasons urinary outflow tract may be obstructed. Urology was consulted. They came to bedside they are able to place a Mar with the scope. They recommend going forward with bladder irrigation every 1 hour. The patient came from an outside hospital after a stay for seizure and concern of possible cardiac arrest. He had been cleared from the hospital and was ready to be discharged home until he started having the outflow obstructive pathology. Because this he was transferred to our emergency department. Currently he has no further pathology that would be reason to admit him to the hospital today. Patient was placed in the [facility] for further bladder irrigation and monitoring and will need to follow up in the outpatient setting once this is done. Final Diagnoses: as of 05/14/24 1600 Retention Urinary Tiffanie Sawant M.D. Resident 05/14/24 1600 documented in this encounter Plan of Treatment Upcoming Encounters Date Type Department Care Team (Late st Contact Info) Description 05/22/2024 8:45 AM CDT Procedure visit Department of Urology in [place], [place] [address] [place] [phone] Remi Lynne M.D., M.P.H. [address] [place] [phone] 05/22/2024 11:30 AM CDT Clinical Support En[facility] Facility in [place], [place] [address] [place] [phone] Remi Lynne M.D., M.P.H. [address] [place] [phone] 05/22/2024 12:20 PM CDT Appointment Department of Laboratory Medicine and Pathology, [facility] in [place], [place] [address] [place] [phone] Remi Lynne M.D., M.P.H. [address] [place] [phone] 05/22/2024 12:30 PM CDT Appointment Department of Laboratory Medicine and Pathology, [facility] in [place], [place] [address] [place] [phone] Remi Lynne M.D., M.P.H. [address] [place] [phone] 05/22/2024 1:30 PM CDT Appointment Department of Radiology, [facility] in [place], [place] [address] [place] [phone] Remi Lynne M.D., M.P.H. [address] [place] [phone] 05/27/2024 8:00 AM CDT Comprehensive Visit Department of Urology in [place], [place] [address] [place] [phone] Eligio Palomino M.D., M.P.H. [address] [place] [phone] 05/27/2024 10:45 AM CDT Procedure visit Department of Urology in [address] [phone] Terry Mooney M.D. [address] [place] [phone] Scheduled Orders Name Type Priority Associated Diagnoses Orde r Schedule Bacterial Culture, Aerobic + Susceptibility, Urine Microbiology STAT STAT for 1 Occur rences starting 05/14/2024 until 05/14/2024 documented as of this encounter Procedures Procedure Name Priority Date/Time Associated Diagnosis Comments BASIC METABOLIC PANEL, S/P STAT 05/14/2024 3:39 PM CDT CBC WITH DIFFERENTIAL, B STAT 05/14/2024 11:03 AM CDT BASIC METABOLIC PANEL, S/P STAT 05/14/2024 11:03 AM CDT documented in this encounter Results * (ABNORMAL) Basic Metabolic Panel (05/14/2024 3:39 PM CDT) Potassium, P 4.4 3.6 - 5.2 mmol/L 05/14/2024 4:12 PM CDT [facility] Sodium, P 141 135 - 145 mmol/L 05/14/2024 4:12 PM CDT [facility] Chloride, P 107 98 - 107 mmol/L 05/14/2024 4:12 PM CDT [facility] Bicarbonate, P 24 22 - 29 mmol/L 05/14/2024 4:12 PM CDT [facility] Anion Gap, P 10 7 - 15 05/14/2024 4:12 PM CDT [facility] BUN (Blood Urea Nitrogen), P 16 8 - 24 mg/dL 05/14/2024 4:12 PM CDT [facility] Creatinine 1.36(H) 0.74 - 1.35 mg/dL 05/14/2024 4:12 PM CDT [facility] Estimated GFR (eGFR) 53(L) >=60 mL/min/BSA 05/14/2024 4:12 PM CDT [facility] Comment: Estimated GFR calculated using the 2020 CKD_EPI creatinine equation. Calcium, Total, P 8.8 8.8 - 10.2 mg/dL 05/14/2024 4:12 PM CDT [facility] Glucose, P 135 70 - 140 mg/dL 05/14/2024 4:12 PM CDT [facility] Blood (Blood, Venous) 05/14/2024 3:39 PM CDT 05/14/2024 3:43 PM CDT Ofe Patricia P.A.-C. LAB BLOOD ADD-ON [facility] [address] [place] [address], [facility] STMA [facility] [address] [place] [address] * (ABNORMAL) Basic Metabolic Panel (05/14/2024 11:03 AM CDT) Potassium, P 4.6 3.6 - 5.2 mmol/L 05/14/2024 11:25 AM CDT [facility] Sodium, P 142 135 - 145 mmol/L 05/14/2024 11:25 AM CDT [facility] Chloride, P 106 98 - 107 mmol/L 05/14/2024 11:25 AM CDT [facility] Bicarbonate, P 23 22 - 29 mmol/L 05/14/2024 11:25 AM CDT [facility] Anion Gap, P 13 7 - 15 05/14/2024 11:25 AM CDT [facility] BUN (Blood Urea Nitrogen), P 17 8 - 24 mg/dL 05/14/2024 11:25 AM CDT [facility] Creatinine 1.66(H) 0.74 - 1.35 mg/dL 05/14/2024 11:25 AM CDT [facility] Estimated GFR (eGFR) 42(L) >=60 mL/min/BSA 05/14/2024 11:25 AM CDT [facility] Comment: Estimated GFR calculated using the 2020 CKD_EPI creatinine equation. Calcium, Total, P 9.3 8.8 - 10.2 mg/dL 05/14/2024 11:25 AM CDT [facility] Glucose, P 158(H) 70 - 140 mg/dL 05/14/2024 11:25 AM CDT [facility] Blood (Blood, Venous) 05/14/2024 11:03 AM CDT 05/14/2024 11:09 AM CDT Tiffanie Sawant M.D. LAB BLOOD ADD-ON [facility] [address] [place] [address], [facility] [address] [place] [address] * (ABNORMAL) CBC with Differential, Blood (05/14/2024 11:03 AM CDT) Hemoglobin 12.8(L) 13.2 - 16.6 g/dL 05/14/2024 11:11 AM CDT [facility] Hematocrit 39.3 38.3 - 48.6 % 05/14/2024 11:11 AM CDT [facility] Erythrocytes 4.18(L) 4.35 - 5.65 x10(12)/L 05/14/2024 11:11 AM CDT [facility] MCV 94.0 78.2 - 97.9 fL 05/14/2024 11:11 AM CDT [facility] RBC Distrib Width 12.6 11.8 - 14.5 % 05/14/2024 11:11 AM CDT [facility] Platelet Count 124(L) 135 - 317 x10(9)/L 05/14/2024 12:26 PM CDT [facility] Comment:Results confirmed by smear, no clumping or interference seen. Leukocytes 7.5 3.4 - 9.6 x10(9)/L 05/14/2024 12:26 PM CDT [facility] Neutrophils 6.59(H) 1.56 - 6.45 x10(9)/L 05/14/2024 11:11 AM CDT [facility] Lymphocytes 0.51(L) 0.95 - 3.07 x10(9)/L 05/14/2024 11:11 AM CDT [facility] Monocytes 0.40 0.26 - 0.81 x10(9)/L 05/14/2024 11:11 AM CDT [facility] Eosinophils <0.03 0.03 - 0.48 x10(9)/L 05/14/2024 11:11 AM CDT [facility] Basophils <0.03 0.01 - 0.08 x10(9)/L 05/14/2024 11:11 AM CDT [facility] Blood (Blood, Venous) 05/14/2024 11:03 AM CDT 05/14/2024 11:09 AM CDT Tiffanie Sawant M.D. LAB BLOOD ADD-ON [facility] [address] [place] [address], [facility] [address] [place] [address] [facility] [address] [place] [address] documented in this encounter Visit Diagnoses Diagnosis Retention Urinary- Primary documented in this encounter Administered Medications Inactive Administered Medications - up to 3 most recent administrations Medication Order MAR Action Action Date Dose Rate Site cefTRIAXone injection 2 g (ROCEPHIN) 2 g, intravenous, Once, On Sun05/14/24 at 1150, For 1 dose, [place] IV push over 3 minutes., Drug Monitoring Program: Pharmacist to adjust medication dosing based on indication and drug clearance factors., Indications: Lower UTI, catheter Given 05/14/2024 11:52 AM CDT 2 g fentaNYL injection 75 mcg (SUBLIMAZE) 75 mcg, intravenous, Every 15 min PRN, severe pain or score 7-10 of 10, Starting on Sun05/14/24 at 1056, For 3 doses NaCl 0.9 % bolus 1,000 mL 1,000 mL, intravenous, at 1,000 mL/hr, Administer over 1 Hours, Once, On Sun05/14/24 at 1217, For 1 dose New Bag 05/14/2024 12:29 PM CDT 1,000 mL 1000 mL/hr documented in this encounter Active and Recently Administered Medications Times are shown in CDT. Scheduled Medication Order 05/12/2024 05/13/2024 05/14/2024 cefTRIAXone injection 2 g (ROCEPHIN) (COMPLETED) 2 g, intravenous, Once, On Sun05/14/24 at 1150, For 1 dose, [place] IV push over 3 minutes., Drug Monitoring Program: Pharmacist to adjust medication dosing based on indication and drug clearance factors., Indications: Lower UTI, catheter 1152 (Given - Provid er: Jackson Hernandez R.N.) NaCl 0.9 % bolus 1,000 mL (COMPLETED) 1,000 mL, intravenous, at 1,000 mL/hr, Administer over 1 Hours, Once, On Sun05/14/24 at 1217, For 1 dose 1229 (New Bag - Prov ider: Jackson Hernandez R.N.)1620 (Stopped - Provider: Christa Polanco R.N. - Comment: stopped by other) PRN Medication Order 05/12/2024 05/13/2024 05/14/2024 fentaNYL injection 75 mcg (SUBLIMAZE) 75 mcg, intravenous, Every 15 min PRN, severe pain or score 7-10 of 10, Starting on Sun05/14/24 at 1056, For 3 doses documented in this encounter Care Teams Tool And Die Designer Relationship Specialty Start Date End Date Elsewhere, Pcp PCP - General Internal Medicine 05/14/24 documented as of this encounter
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
--- OUTSIDE RECORDS SUMMARY | 2024-05-17 05:53 | XMS_ITS | Clinical Summary ---
Author Organization [facility] Address [address] [place] [address] Care Team Providers Care Backside Grinder Name Role Phone Elsewhere, Pcp Primary Care Provider Unavailabl e Source Comments Patient records contain information from all sites at [facility]. For routine questions regarding patient records, call [phone] during business hours, M-F 8:00 AM - 5:00 PM Central Time. Record requests for emergency care only can be directed to [phone] at any time.[facility] Allergies Active Allergy Reactions Criticality Noted Date Comments Cat Dander Rash 06/12/2018 Chest tighrness Erythromycin Shortness of breath,Anaphylaxis High 03/04/2007 chest tightness Erin Hips Other (see comments) 06/12/2018 Chest tightness Medications Medication Sig Dispensed Refills Start Date End Date Status tamsulosin (FLOMAX) 0.4 mg 24 hr capsule Take 1 capsule by mouth daily. 08/07/2023 Active cefdinir (Omnicef) 300 mg capsule Take 1 capsule (300 mg total) by mouth 2 (two) times a day before breakfast and dinner for 3 days. 6 capsule 05/14/2024 4 Active DME Urological suppliesIndicat ions:Retention Urinary DME Order 1 Unspecified 05/14/2024 Active DME Urological suppliesIndicat ions:Retention Urinary DME Order 1 Unspecified 05/14/2024 4 Discontinued Active Problems No known active problems Encounters Date Type Department Care Team Description 05/14/2024 10:49 AM CDT - 05/14/2024 5:[address] [facility] Emergency Department [address] [place] [phone] Tiffanie Soto M.D. Priebe, Katie L, P.A.-C. Retention Urinary (Primary Dx) Discharge Disposition: Home or Self Care 05/14/2024 Clinical Communication [facility] [address] [place] [address] Remi Lynne M.D., M.P.H. 05/14/2024 Documentation Department of Urology in [place], [place] [address] [place] [phone] Beth Bentley M.D. 05/14/2024 Intake [facility] from Last 3 Months Social History Tobacco Use Types Packs/Day Years Used Date Smoking Tobacco: Never Assessed Dental Answer Date Recorded Dental: Regular Dentist Unknown 05/14/20 24 Sex and Gender Information Value Date Recorded Sex Assigned at Not on file Gender Identity Not on file Sexual Orientation Not on file Last Filed Vital Signs Vital Sign Reading Time Taken Comments Blood Pressure 121/67 05/14/2024 1:30 PM CDT Pulse 53 05/14/2024 3:30 PM CDT Temperature - - Respiratory Rate 18 05/14/2024 1:30 PM CDT Oxygen Saturation 98% 05/14/2024 3:30 PM CDT Inhaled Oxygen Concentration - - Weight - - Height - - Body Mass Index - - Plan of Treatment Upcoming Encounters Date Type Department Care Team (Late st Contact Info) Description 05/22/2024 8:45 AM CDT Procedure visit Department of Urology in [place], [place] [address] [place] [phone] Remi Lynne M.D., M.P.H. [address] [place] [phone] 05/22/2024 11:30 AM CDT Clinical Support Enema Prep Facility in [place], [place] [address] [place] [phone] Remi Lynne M.D., M.P.H. [address] [place] [phone] 05/22/2024 12:20 PM CDT Appointment Department of Laboratory Medicine and Pathology, [facility] in [place], [place] [address] [place] [phone] Remi Lynne M.D., M.P.H. [address] [place] [phone] 05/22/2024 12:30 PM CDT Appointment Department of Laboratory Medicine and Pathology, [facility] in [place], [place] [address] [place] [address] Remi Lynne M.D., M.P.H. [address] [place] [phone] 05/22/2024 1:30 PM CDT Appointment Department of Radiology, [facility] in [place], [place] [address] [place] [phone] Rmei Lynne M.D., M.P.H. [address] [place] [address] 05/27/2024 8:00 AM CDT Comprehensive Visit Department of Urology in [place], [place] [address] [place] [address] Eligio Palomino M.D., M.P.H. [address] [place] [phone] 05/27/2024 10:45 AM CDT Procedure visit Department of Urology in [place], [place] [address] [place] [address] Terry Mooney M.D. [address] [place] [address] Health Maintenance Due Date Last Done Comments Hepatitis C Screening 1945 COVID-19 Vaccine (1 - 2023-2 4 season) 2023 Influenza Vaccine (#1) 2023 7, 08/31/2009, 09/17/2008, Additional history exists Depression Screening (Annual PHQ-2) 11/26/2023 Fall Risk Screen (Annual) 11/26/2023 DTaP,Tdap,and Td Vaccines (3 - Td or Tdap) 06/14/2026 06/14/2016, 04/10/2008 Pneumococcal vaccine (65+ years) Completed 07/07/2016, 07/22/2013, 03/01/1995 Zoster Vaccines Completed 11/22/2020, 08/26, 11/26/2012 Procedures Procedure Name Priority Date/Time Associated Diagnosis Comments BASIC METABOLIC PANEL, S/P STAT 05/14/2024 3:39 PM CDT BASIC METABOLIC PANEL, S/P STAT 05/14/2024 11:03 AM CDT CBC WITH DIFFERENTIAL, B STAT 05/14/2024 11:03 AM CDT OUTSIDE MR NEURO Routine 04/12/2024 11:1 0 AM CDT OUTSIDE OTHER Routine 04/12/2024 11:[address] BODY Routine 04/12/2024 6:[address] BODY Routine 04/12/2024 5:[address] NEURO Routine 04/12/2024 5:25 AM CDT from Last 3 Months Results * (ABNORMAL) Basic Metabolic Panel (05/14/2024 3:39 PM CDT) Only the most recent of2 resultswithin the time period is included. Potassium, P 4.4 3.6 - 5.2 mmol/L [...] CDT Ofe Patricia P.A.-C. [place] [address], [facility] [address] [place] [address] * (ABNORMAL) CBC with Differential, Blood (05/14/2024 [...] Tiffanie Sawant M.D. LAB BLOOD ADD-ON [facility] [address] [place] [address], [facility] [address] [place], [place] [address] [place] [address] [place] [address] * MR head/brain wo/w con-Outside MR Neuro (04/12/2024 11:10 AM CDT) Narrative [facility] - 05/14/2024 8:32 AM CDT This order has been created and auto-finalized to support the import of outside images. If available, original interpretation can be found on the Media Tab in Chart Review, in Document Viewer, as an image in QREADS or as an Addendum. If a re-interpretation or overread is required please follow defined workflow.?? Provider Not In System IMG MRI PROCEDURE S Performing Organization Address [facility] de Phone Number [facility] NA * XR EYE FOREIGN BODY-Outside Other (04/12/2024 11:00 AM CDT) Narrative [facility] - 05/14/2024 8:27 AM CDT This order has been created and auto-finalized to support the import of outside images. If available, original interpretation can be found on the Media Tab in Chart Review, in Document Viewer, as an image in QREADS or as an Addendum. If a re-interpretation or overread is required please follow defined workflow.?? Provider Not In System IMG DIAGNOSTIC IM AGING PROCEDURES Performing Organization Address [facility] de Phone Number [facility] NA * CT Angio Chest PE Protocol-Outside CT Body (04/12/2024 6:00 AM CDT) Only the most recent of2 resultswithin the time period is included. Narrative [facility] - 05/14/2024 8:36 AM CDT This order has been created and auto-finalized to support the import of outside images. If available, original interpretation can be found on the Media Tab in Chart Review, in Document Viewer, as an image in QREADS or as an Addendum. If a re-interpretation or overread is required please follow defined workflow.?? Provider Not In System IMG CT PROCEDURES Performing Organization Address [facility] de Phone Number [facility] NA * CT HEAD/BRAIN WO CON-Outside CT Neuro (04/12/2024 5:25 AM CDT) Narrative [facility] 05/14/2024 8:31 AM CDT This order has been created and auto-finalized to support the import of outside images. If available, original interpretation can be found on the Media Tab in Chart Review, in Document Viewer, as an image in QREADS or as an Addendum. If a re-interpretation or overread is required please follow defined workflow.?? Provider Not In System IMG CT PROCEDURES [facility] NA from Last 3 Months Care Teams Backside Grinder Relationship Specialty Start Date End Date Elsewhere, Pcp PCP - General Internal Medicine 05/14/24
--- OUTSIDE RECORDS SUMMARY | 2024-05-17 05:53 | XMS_ITS ---
Author Organization [facility] Address [address] [place] [address] Care Team Providers Care Grapple Yarder Operator Name Role Phone Unavailable Unavailable Unavailable Surgery Details Not on file Complications Check Surgery Details section. Procedure Estimated Blood Loss Check Surgery Details section. Procedure Findings Check Surgery Details section. Procedure Specimens Taken Check Surgery Details section.
--- OUTSIDE RECORDS SUMMARY | 2024-05-17 05:53 | XMS_ITS | Referral Summary ---
Author Organization [facility] Address [address] [place] [address] Care Team Providers Care Tong Setter Name Role Phone Elsewhere, Pcp Primary Care Provider Unavailabl e Source Comments Patient records contain information from all sites at [facility]. For routine questions regarding patient records, call [phone] during business hours, M-F 8:00 AM - 5:00 PM Central Time. Record requests for emergency care only can be directed to [phone] at any time.[facility] Encounters Date Type Department Care Team Description 05/14/2024 Clinical Communication [facility] [address] [place] [phone] Remi Lynne M.D., M.P.H. 05/14/2024 10:49 AM CDT - 05/14/2024 5:10 PM CDT Emergency [facility] Emergency Department [address] [place] [phone] Tiffanie Soto M.D. Priebe, Katie L, P.A.Nasim. Retention Urinary (Primary Dx) Discharge Disposition: Home or Self Care 05/14/2024 Documentation Department of Urology in [place], [place] [address] [place] [address] Beth Bentley M.D. 05/14/2024 Intake [facility] from Last 3 Months Allergies Active Allergy Reactions Criticality Noted Date [...] Discontinued Active Problems No known active problems Social [...] CDT Procedure visit Department of Urology in [place], [place] [address] [place] [phone] Remi Lynne M.D., M.P.H. [address] [place] [phone] 05/22/2024 11:30 AM CDT Clinical Support Enema Prep Facility in [place], [place] [address] [place] [phone] Remi Lynne M.D., M.P.H. [address] [place] [phone] 05/22/2024 12:20 PM CDT Appointment Department of Laboratory Medicine and Pathology, [facility] in [place], [place] [address] [place] [phone] Remi Lynne M.D., M.P.H. [address] [place] [phone] 05/22/2024 12:30 PM CDT Appointment Department of Laboratory Medicine and Pathology, [facility] in [place], [place] [address] [place] [phone] Remi Lynne M.D., M.P.H. [address] [place] [phone] 05/22/2024 1:30 PM CDT Appointment Department of Radiology, [facility] in [place], [place] [address] [place] [address] Remi Lynne M.D., M.P.H. [address] [place] [phone] 05/27/2024 8:00 AM CDT Comprehensive Visit Department of Urology in [place], [place] [address] [place] [phone] Eligio Palomino M.D., M.P.H. [address] [place] [phone] 05/27/2024 10:45 AM CDT Procedure visit Department of Urology in [place], [place] [address] [place] [address] Terry Mooney M.D. [address] [place] [address] Procedures Procedure Name Priority Date/Time Associated Diagnosis [...] CDT Ofe Patricia P.A.-C. LAB BLOOD ADD-ON [facility] [address] [place] [address], [facility] [address] [place] [address] * (ABNORMAL) CBC with Differential, Blood (05/14/2024 [...] CDT Tiffanie Sawant M.D. LAB BLOOD ADD-ON Performing Organization Address [facility]/ZIP Co de Phone Number [facility] [address] [place] [address], [facility] [address] [place] [address] [facility] [address] [place] [address] * MR head/brain wo/w con-Outside MR Neuro (04/12/2024 11:10 AM CDT) Narrative [facility] - 05/14/2024 8:32 AM CDT This order [...] IMG MRI PROCEDURE S Performing Organization Address [facility]/ZIP Co de Phone Number [facility] NA * XR EYE FOREIGN BODY-Outside Other (04/12/2024 11:00 AM CDT) Narrative [facility] - 05/14/2024 8:27 AM CDT This order [...] DIAGNOSTIC IM AGING PROCEDURES Performing Organization Address [facility] de Phone Number II NA * CT Angio Chest PE Protocol-Outside CT Body (04/12/2024 6:00 AM CDT) Only the most recent of2 resultswithin the time period is included. Narrative [facility] - 05/14/2024 8:36 AM CDT This order [...] System IMG CT PROCEDURES Performing Organization Address [facility] de Phone Number II NA * CT HEAD/BRAIN WO CON-Outside CT Neuro (04/12/2024 5:25 AM CDT) Narrative [facility] - 05/14/2024 8:31 AM CDT This order has [...] System IMG CT PROCEDURES Performing Organization Address [facility] de Phone Number II NA from Last 3 Months Care Teams Tong Setter Relationship Specialty Start Date End Date Elsewhere, Pcp PCP - General Internal Medicine 05/14/24
== END 2024-05-14 09:31 | disposition home or self-care (01) ==
LOC: AMB 05-17 05:41
PROVIDERS: PCP Surgery; Visit Provider Family Medicine
DX: R33.9 Retention of urine, unspecified (principal)
CPT/HCPCS: A0425; A0427

== ENCOUNTER 2025-06-26 06:20 | Outpatient (CLI) | payer MEDICARE, BC, SELFPAY ==
--- NOTE | 2025-06-26 08:04 | P.ANES_ITS ---
Anesthesia Charges Start Date/Time Anesthesia Start Date: 06/26/25 Anesthesia Start Time: 07:20 Stop Date/Time Anesthesia Stop Date: 06/26/25 Anesthesia Stop Time: 08:00 Summary Extremes of Age - Over 70 or under 1: MULTIMEDIA PROGRAMMER Coding CPT Codes CPT Codes: ANES UPR LWR GI NDSC PX - 62241 ([id number]) P3 - PATIENT W/SEVERE SYS DISEASE, QZ - MULTIMEDIA PROGRAMMER SVC W/O COMMUNITY CULTURAL DEVELOPMENT OFFICER BY Additional Codes: Summary - Extremes of Age - Over 70 or under 1: MULTIMEDIA PROGRAMMER ([id number])
--- NOTE | 2025-06-26 08:04 | W.ANESCHARGE ---
Anesthesia Charges Start Date/Time Anesthesia Start Date: 06/26/25 Anesthesia Start Time: 07:20 Stop Date/Time Anesthesia Stop Date: 06/26/25 Anesthesia Stop Time: 08:00 Summary Extremes of Age - Over 70 or under 1: LEGAL MANAGER Coding CPT Codes CPT Codes: ANES UPR LWR GI NDSC PX - 35980 ([id number]) P3 - PATIENT W/SEVERE SYS DISEASE, QZ - LEGAL MANAGER SVC W/O BRICK LOADER BY Additional Codes: Summary - Extremes of Age - Over 70 or under 1: LEGAL MANAGER ([id number])
--- NOTE | 2025-06-26 09:00 | CRLHL7_ITS ---
For Patients: As a result of the Century Cures Act, medical imaging exams and procedure reports are released immediately into your electronic medical record. You may view this report before your referring provider. If you have questions, please contact your health care provider. 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 COMPARISON: None. TECHNIQUE: CT chest, abdomen and pelvis with intravenous contrast; coronal and sagittal reformats; maximum intensity projections; 89 cc of Isovue-370 contrast was injected IV. FINDINGS: The esophagogastric junction is just above the diaphragm and the entire stomach herniates through the esophageal hiatus into the chest. Even part of the duodenum appears to be within the chest. No abnormal mediastinal or hilar lymphadenopathy. Normal size cardiac silhouette without any pericardial effusion. Calcified granulomas right upper lobe. 5 mm noncalcified nodular density right lower lobe slice 77 series 3. A 0.9 x 0.4 cm juxtapleural noncalcified nodular density right lower lobe slice 72 series 3. Bronchiectatic changes inferior segment left lingula and left lower lobe. No evidence of pleural effusion. No focal hepatic or splenic pathology. Calcifications identified in the head and uncinate process of the pancreas; rule out chronic calcific pancreatitis. No evidence of pancreatic ductal dilatation. Gallbladder is unremarkable. No adrenal pathology. Prominent left renal pelvis without any left-sided hydronephrosis. No kidney stones or obstructive uropathy. No retroperitoneal lymphadenopathy. Normal appendix. Status post transurethral resection of the prostate. Diverticulosis sigmoid colon without any CT evidence of diverticulitis or abscess. Impression: 1. 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 2. Calcifications identified in the head and uncinate process of the pancreas; rule out chronic calcific pancreatitis. 3. A 5 mm noncalcified nodule right lung base and a juxtapleural noncalcified nodule right lower lobe; follow-up chest CT in 1 year suggested. 4. Bronchiectatic changes left lingula and left lower lobe. Please note that all CT scans at this facility use dose modulation, iterative reconstruction, and/or weight-based dosing when appropriate to reduce radiation dose to as low as reasonably achievable. Dictated by Andrea Bravo MD @ 06/27/2025 9:15:27 AM (Electronically Signed)
== END 2025-06-26 06:21 | disposition home or self-care (01) ==
PROVIDERS: PCP Surgery; Visit Provider Internal Medicine Gastroenterology
DX: D50.9 Iron deficiency anemia, unspecified (principal); K44.9 Diaphragmatic hernia without obstruction or gangrene; D12.3 Benign neoplasm of transverse colon; R91.1 Solitary pulmonary nodule
CPT/HCPCS: 00813; 43235; 45385; 71260; 74177; 99100; J2704; J3010; Q9967